=== PATIENT | female | born 1940 | race Caucasian/White ===

== ENCOUNTER → 2023-02-07 07:58 | Outpatient (BNVA) | payer MEDICARE, SELFPAY | PROVIDERS: PCP Internal Medicine; Visit Provider Nurse Practitioner Family | DX: M35.3 Polymyalgia rheumatica (principal) | CPT/HCPCS: 36415; 85652; 86140; 99202 ==

== ENCOUNTER 2023-02-07 09:47 | Outpatient (REF) | payer MEDICARE, SELFPAY ==
[2023-02-07 10:55] LABS: C Reactive Protein 0.77 mg/dL (< or = 0.50)
[2023-02-07 11:09] LABS: Erythrocyte Sedimentation Rate 20 MM/HR (0-20)
== END 2023-02-07 09:48 | disposition home or self-care (01) ==
LOC: HO.10HDL 09:47
PROVIDERS: Visit Provider Nurse Practitioner Family
DX: Z13.89 Encounter for screening for other disorder (principal)
CPT/HCPCS: 36415; 85652; 86140

== ENCOUNTER 2023-02-17 12:36 | Outpatient (REF) | payer MEDICARE, SELFPAY ==
--- NOTE | ~2023-02-17 | MM_ITS ---
EXAMINATION: BONE DENSITOMETRY CLINICAL INDICATION: Long-term, current, use of systemic steroids. COMPARISON: None (current study represents initial baseline exam). TECHNIQUE: Using a [employer] DXA System (software version: 13.1) manufactured by [employer], dual-energy x-ray absorptiometry was performed of the lumbar spine and left hip. The images are of good technical quality. Summary results are attached. FINDINGS: AP SPINE L1-L4: BMD 1.120 g/cm2, Z-score 0.8, T-score -0.5, normal. LEFT FEMUR, NECK: BMD 0.769 g/cm2, Z-score -0.1, T-score -1.9, osteopenia. LEFT FEMUR, TOTAL: BMD 0.909 g/cm2, Z-score 0.9, T-score -0.8, normal. IDENTIFIED RISK FACTORS: Height loss, menopause, hysterectomy, osteoporosis, glucocorticoids (chronic). HISTORY OF FRACTURE: None listed. MEDICATIONS: Vitamin D. MM/XR DEXA axial skeleton IMPRESSION: 1. DIAGNOSIS: Osteopenia based on the lowest T-score value of -1.9 in the femoral neck applying World Health Organization criteria. 2. 10-YEAR FRACTURE RISK PREDICTION, FRAX: Major osteoporotic fracture (clinical spine, forearm, hip or shoulder) 22.7%. Hip fracture 7.4%. 3. Treatment Recommendations: NOF guidelines recommend consideration for treatment in postmenopausal women and men age 50 and older presenting with the following: -A hip or vertebral (clinical or morphometric) fracture. -T-score less than or equal to -2.5 at the femoral neck or spine after appropriate evaluation to exclude secondary causes. -Low bone mass at the hip or spine and a 10-year fracture probability by FRAX of greater than or equal to 3% for hip fracture or greater than or equal to 20% for major osteoporotic fracture based on the [place] adapted WHO algorithm. 4. Other Recommendations: All treatment decisions require clinical judgment and consideration of individual patient factors, including patient preferences, comorbidities, previous drug use, risk factors not captured in the FRAX model (e.g. frailty, falls, vitamin D deficiency, increased bone turnover, interval significant decline in bone density) and possible under or overestimation of fracture risk by FRAX. Additional medical evaluation for secondary cause of low bone mineral density may be appropriate. FUTURE SCAN RECOMMENDATION: People with diagnosed cases of osteoporosis or at high risk for fracture should have regular bone mineral density tests. For patients eligible for Medicare, routine testing is allowed once every 2 years. The testing frequency can be increased to one year for patients who have rapidly progressing disease, those who are receiving or discontinuing medical therapy to restore bone mass, or have additional risk factors.
== END 2023-02-17 12:37 | disposition home or self-care (01) ==
LOC: HO.MAMMO 12:36
PROVIDERS: PCP Internal Medicine; Visit Provider Nurse Practitioner Family
DX: Z13.820 Encounter for screening for osteoporosis (principal); Z79.52 Long term (current) use of systemic steroids; Z78.0 Asymptomatic menopausal state
CPT/HCPCS: 77080

== ENCOUNTER 2023-02-28 10:11 | Outpatient (REF) | payer MEDICARE, SELFPAY ==
[2023-02-28 11:25] LABS: Erythrocyte Sedimentation Rate 27 MM/HR (0-20)
[2023-02-28 12:35] LABS: Alanine Aminotransferase 16 U/L (0-31); Albumin Level 3.9 g/dL (3.5-5.0); Alkaline Phosphatase 80 U/L (39-117); Anion Gap 11 (12-20); Aspartate Amino Transferase 19 U/L (5-31); Bilirubin Total 0.9 mg/dL (0.0-1.0); Blood Urea Nitrogen 20 mg/dL (9-16); C Reactive Protein 1.15 mg/dL (< or = 0.50); Calcium 9.6 mg/dL (8.4-10.2); Carbon Dioxide 29 mmol/L (22-29); Chloride 107 mmol/L (96-108); Estimated Glomerular Filt Rate > 60; Glucose Random 105 mg/dL (60-115); Potassium 4.6 mmol/L (3.3-5.1); Sodium 142 mmol/L (135-145); Total Protein 6.6 g/dL (6.5-8.0)
[2023-02-28 12:54] LABS: Vitamin D 25-OH Total 44.5 ng/mL (>30)
== END 2023-02-28 10:12 | disposition home or self-care (01) ==
LOC: HO.10HDL 10:11
PROVIDERS: Visit Provider Nurse Practitioner Family
DX: M85.80 Other specified disorders of bone density and structure, unspecified site (principal); M35.3 Polymyalgia rheumatica
CPT/HCPCS: 36415; 80053; 82306; 85652; 86140

== ENCOUNTER → 2023-03-02 15:14 | Outpatient (BNVA) | payer MEDICARE, SELFPAY | PROVIDERS: PCP Internal Medicine; Visit Provider Nurse Practitioner Family | DX: M35.3 Polymyalgia rheumatica (principal); M85.80 Other specified disorders of bone density and structure, unspecified site | CPT/HCPCS: 99212 ==

== ENCOUNTER 2023-03-21 10:42 | Outpatient (REF) | payer MEDICARE, SELFPAY ==
[2023-03-21 13:41] LABS: C Reactive Protein 0.38 mg/dL (< or = 0.50)
[2023-03-21 14:09] LABS: Erythrocyte Sedimentation Rate 23 MM/HR (0-20)
== END 2023-03-21 10:43 | disposition home or self-care (01) ==
LOC: HO.10HDL 10:42
PROVIDERS: Visit Provider Nurse Practitioner Family
DX: M35.3 Polymyalgia rheumatica (principal)
CPT/HCPCS: 36415; 85652; 86140

== ENCOUNTER → 2023-03-22 15:44 | Outpatient (BNVA) | payer MEDICARE, SELFPAY | PROVIDERS: PCP Internal Medicine; Visit Provider Nurse Practitioner Family | DX: M35.3 Polymyalgia rheumatica (principal); M85.80 Other specified disorders of bone density and structure, unspecified site; Z79.52 Long term (current) use of systemic steroids | CPT/HCPCS: 99212 ==

== ENCOUNTER 2023-05-02 08:32 | Outpatient (AMB) | payer MEDICARE, SELFPAY ==
[2023-05-02 08:33] VITALS: BP 146/70; PULSE 76; TEMP 36.2; O2SAT 96; BMI 29.3
--- NOTE | 2023-05-02 08:33 | A.OFFVIS_ITS ---
Intake Vital Signs 05/02/23 08:33 Height 5 ft 5 in Weight 176 lb 2.389 oz BMI 29.3 BP 146/70 H Blood Pressure Location Rt brachial Position Sitting Pulse 76 Pulse Source Pulse Oximeter Temp 97.2 F Temp Source Skin Pulse Oximetry (%) 96 Intake Visit Reasons: PMR Intake Note: Pt seen today for PMR follow up. Reports she feels good on prednisone 10mg. Advice Clerk Required: No Accompanied by: Self / Same As Patient Allergies omeprazole Adverse Reaction (Unknown, Verified 05/02/23 08:39) Hives Penicillins Adverse Reaction (Unknown, Verified 05/02/23 08:39) Hives HPI HPI Comments History of Present Illness Details The patient returns for evaluation of her PMR. She had last seen Mickie at the end of February. At that point she was on 5 mg twice a day of the prednisone. We elected to go down to 7.5 mg daily taking 5 mg the morning and 2.5 mg in the afternoon. That worked for a few weeks but then she developed stiffness and pain in the buttocks, thighs, and knees. There was no shoulder pain, headache, jaw claudication or visual disturbance. She called us and we went back to prednisone 5 mg twice a day and she felt much better. She had her lab done when she had the flare-up of symptoms. She remains on alendronate 70 mg once a week for her osteoporosis. That seems to be tolerated. [facility] Medical History (Updated 05/02/23 @ 07:24 by Kody Russell MD) Aortic valve disorder Essential hypertension GERD (gastroesophageal reflux disease) Migraine Mitral valve disorder Sciatica Surgical History (Updated 05/02/23 @ 08:39 by FANNY Roque) History of arthroplasty of knee History of bladder surgery History of heart valve replacement History of right knee joint replacement Hx of colonoscopy Family History Father Myocardial infarction Mother Heart failure Social History (Updated 05/02/23 @ 08:40 by FANNY Roque) Household Members: None Alcohol intake: current Alcohol intake frequency: does not drink Patient Tobacco Use Status: Former Tobacco user Quit Date: 1991 Review of Systems Const Details: Negative for appetite change, weight change, fever, chills, malaise and fatigue Eyes Details: Negative for vision change, dry eyes,headaches and dizziness Card Details: Negative chest pain, edema and syncope Resp Details: Negative for SOB, cough and wheezing GI Details: Negative indigestion/heartburn, nausea, abdominal pain, bowel changes, diarrhea, constipation and bloody stool. Neuro Details: Negative for epilepsy, palsy, stroke, changes in speech, tingling and weakness Physical Exam Vital Signs: Last Vital Signs Temp 97.2 F 05/02/23 08:33 Pulse 76 05/02/23 08:33 BP 146/70 H 05/02/23 08:33 Pulse Ox 96 05/02/23 08:33 BMI result Body Mass Index 29.3 APPEARANCE: Patient in no acute distress EYES no redness, pupils equal and reactive to light, eyelids normal. No temporal artery tenderness, redness or swelling. EXTREMITIES: No edema, no calf tenderness, normal peripheral pulses. JOINT EXAM: Cervical Spine: Full range of motion without pain; no tenderness. Thoracic Spine:? No tenderness on palpation. Lumbar Spine:? Alignment normal.? Full range of motion without pain, no tenderness. Hands: LEFT:? Normal pain-free range of motion without tenderness, swelling, increased warmth or erythema. Able to make a full fist and has a good diesel engine fitter strength. ? RIGHT:? Normal pain-free range of motion. There is some slight bony thickening without tenderness at the thumb IP and 3rd PIP. In other joints there is no swelling, increased warmth or erythema.? Wrists: Normal pain-free range of motion without tenderness, swelling, increased warmth or erythema. Elbows: Normal pain-free range of motion without tenderness, swelling, increased warmth or erythema. Shoulders:?? Full range of motion without pain. No tenderness, weakness, swelling, increased warmth or erythema. Hips:? Full range of motion without pain. Hip bursa: No tenderness. Knees: LEFT:? Normal pain-free range of motion without tenderness, swelling, increased warmth or erythema.? There is no effusion or crepitation ? RIGHT:? Normal pain-free range of motion without tenderness, swelling, increased warmth or erythema.? There is no effusion or crepitation.? Healed arthroplasty scar noted. Ankles: Normal pain-free range of motion without tenderness, swelling, increased warmth or erythema. Results Reviewed Results Reviewed: April 21, 2023: Lab work from [facility] showed ESR 37, CRP 0.51 mg/dL Assessment & Plan Assessment & Plan (1) Osteopenia with high risk of fracture: Comment: DEXA January 2023: T-score -1.9 in the femoral neck. Major osteoporotic fracture risk 22.7%, hip fracture 7.4% Alendronate February 2023- present Code(s): M85.80 - Other specified disorders of bone density and structure, unspecified site (2) Polymyalgia rheumatica: Comment: onset 08/2022 Code(s): M35.3 - Polymyalgia rheumatica Plan PMR with good control of symptoms at this point. It looks like we can not go any lower with the prednisone than 5 mg b.i.d. at present. We will stay with that for another 2 months and ask her then to go to back to 5 mg in the morning and 2.5 mg in the afternoon with the prednisone. We will see her back in about 3 months. We will check lab work before that visit in 3 months. I gave her a printed lab requisition as she wants to have them done in [place]. She will call us with any interim problems and remain on the alendronate for the osteopenia. Orders: Orders C Reactive Protein Today M35.3 - Polymyalgia rheumatica Erythrocyte Sedimentation Rate Today M35.3 - Polymyalgia rheumatica Medications: New prednisone 5 mg (2 x 2.5 mg) PO BID 360 tabs 1RF M35.3 - Polymyalgia rheumatica Coding Level of Care Code Est Pt Level 3 (44889) Diagnoses Osteopenia with high risk of fracture M85.80 Polymyalgia rheumatica M35.3
== END 2023-05-02 09:06 | disposition home or self-care (01) ==
LOC: HO.RHE 08:32
PROVIDERS: PCP Internal Medicine; Visit Provider Internal Medicine Rheumatology
DX: M85.80 Other specified disorders of bone density and structure, unspecified site (principal); M35.3 Polymyalgia rheumatica
CPT/HCPCS: 99213

== ENCOUNTER → 2023-05-02 08:32 | Outpatient (BNVA) | payer MEDICARE, SELFPAY | PROVIDERS: PCP Internal Medicine; Visit Provider Internal Medicine Rheumatology | DX: M35.3 Polymyalgia rheumatica (principal); M85.80 Other specified disorders of bone density and structure, unspecified site | CPT/HCPCS: 99212 ==

== ENCOUNTER 2023-08-08 10:00 | Outpatient (AMB) | payer MEDICARE, SELFPAY ==
--- NOTE | 2023-08-08 10:35 | A.OFFVIS_ITS ---
Intake Vital Signs 08/08/23 10:36 Height 5 ft 5 in Weight 182 lb 8.684 oz BMI 30.4 BP 150/64 H Blood Pressure Location Lt brachial Pulse 58 Pulse Source Pulse Oximeter Temp 97.6 F Temp Source Skin Pulse Oximetry (%) 93 Oxygen Delivery Method Room Air Intake Visit Reasons: pmr Intake Note: Patient presents today to follow up on PMR. c/o facial flush lasting about an hour x few weeks Licensed Optician Required: No Accompanied by: Self / Same As Patient Allergies omeprazole Adverse Reaction (Unknown, Verified 08/08/23 10:35) Hives Penicillins Adverse Reaction (Unknown, Verified 08/08/23 10:35) Hives Medication List - Last Reconciled 08/08/23 by Kody Russell MD alendronate 70 mg PO QWEEK cetirizine (Zyrtec) 10 mg PO DAILY PRN methenamine hippurate 1 g PO BID omeprazole 20 mg PO DAILY prednisone 5 mg QAM and 2.5 mg QHS orally; HPI HPI Comments History of Present Illness Details The patient returns today for evaluation of her polymyalgia rheumatica. She says she is doing well with current treatment. She was able to cut the prednisone to 5 mg in the morning and 2.5 mg in the evening about 3 weeks ago. So far there has been no return of symptoms. She has noticed a little bit of flushing on her face for the past week or so. She did have blood work done. There has been no headache, jaw claudication, or visual disturbance. She remains on alendronate 70 mg once a week for osteopenia. [facility] Medical History (Updated 05/02/23 @ 07:24 by Kody Russell MD) Aortic valve disorder Essential hypertension Mitral valve disorder Sciatica GERD (gastroesophageal reflux disease) Migraine Surgical History History of bladder surgery History of right knee joint replacement Hx of colonoscopy History of arthroplasty of knee History of heart valve replacement Family History Father Myocardial infarction Mother Heart failure Social History Household Members: None Alcohol intake: current Alcohol intake frequency: does not drink Patient Tobacco Use Status: Former Tobacco user Quit Date: 1991 Review of Systems Const Details: Negative for appetite change, weight change, fever, chills, malaise and fatigue Eyes Details: Negative for vision change, dry eyes,headaches and dizziness Card Details: Negative chest pain, edema and syncope Resp Details: Negative for SOB, cough and wheezing GI Details: Negative indigestion/heartburn, nausea, abdominal pain, bowel changes, diarrhea, constipation and bloody stool. Skin/Breast Details: Some intermittent facial redness. Negative for itching, hives, Raynaud's symptoms, sun sensitivity, and skin cancer Endo Details: Negative for polyuria and polydypsia Sukumar/Lymph Details: Negative for excessive bruising or bleeding. Physical Exam Vital Signs: Last Vital Signs Temp 97.6 F 08/08/23 10:36 Pulse 58 08/08/23 10:36 BP 150/64 H 08/08/23 10:36 Pulse Ox 93 08/08/23 10:36 Oxygen Delivery Method Room Air 08/08/23 10:36 BMI result Body Mass Index 30.4 APPEARANCE: Patient in no acute distress EYES no redness, pupils equal and reactive to light, eyelids normal. No temporal artery tenderness, redness or swelling. EXTREMITIES: No edema, no calf tenderness, normal peripheral pulses. Skin: There is some slight redness over the left cheek. I do not palpate any skin lesions. The right cheek looks normal. No other skin Rash. JOINT EXAM: Cervical Spine: Full range of motion without pain; no tenderness. Thoracic Spine:? No tenderness on palpation. Lumbar Spine:? Alignment normal.? Full range of motion without pain, no tenderness. Hands: LEFT:? Normal pain-free range of motion without tenderness, swelling, increased warmth or erythema. Able to make a full fist and has a good financial investment manager strength. ? RIGHT:? Normal pain-free range of motion. There is some slight bony thickening without tenderness at the thumb IP and 3rd PIP. In other joints there is no swelling, increased warmth or erythema.? Wrists: Normal pain-free range of motion without tenderness, swelling, increased warmth or erythema. Elbows: Normal pain-free range of motion without tenderness, swelling, increased warmth or erythema. Shoulders:?? Full range of motion without pain. No tenderness, weakness, swelling, increased warmth or erythema. Hips:? Full range of motion without pain. Hip bursa: No tenderness. Knees: LEFT:? Normal pain-free range of motion without tenderness, swelling, increased warmth or erythema.? There is no effusion or crepitation ? RIGHT:? Normal pain-free range of motion without tenderness, swelling, increased warmth or erythema.? There is no effusion or crepitation.? Healed arthroplasty scar noted. Ankles: Normal pain-free range of motion without tenderness, swelling, increased warmth or erythema. Results Reviewed Results Reviewed: July 28 lab work from [facility]: ESR 27, CRP 0.41 Assessment & Plan Assessment & Plan (1) Polymyalgia rheumatica: Comment: onset 08/2022 Code(s): M35.3 - Polymyalgia rheumatica Plan PMR with no active symptoms presently on the lower dose of prednisone. The acute phase reactants remain normal or close to normal. We will continue with this current dose of prednisone at 5 mg the morning and 2.5 mg in the afternoon. On she will cut down to 2.5 mg twice a day. We will check lab work before for return visit in about 2 months. Medications: Changed From prednisone 5 mg (2 x 2.5 mg) PO BID 360 tabs 1RF M35.3 - Polymyalgia rheumatica To prednisone 5 mg QAM and 2.5 mg QHS orally; M35.3 - Polymyalgia rheumatica Refilled alendronate 70 mg PO QWEEK 12 tabs 3RF M85.80 - Other specified disorders of bone density and structure, unspecified site Coding Level of Care Code Est Pt Level 3 (93286) Diagnoses Polymyalgia rheumatica M35.3
[2023-08-08 10:36] VITALS: BP 150/64; PULSE 58; TEMP 36.4; O2SAT 93; BMI 30.4
== END 2023-08-08 11:24 | disposition home or self-care (01) ==
PROVIDERS: PCP Internal Medicine; Visit Provider Internal Medicine Rheumatology
DX: M35.3 Polymyalgia rheumatica (principal)
CPT/HCPCS: 99213

== ENCOUNTER → 2023-08-08 10:00 | Outpatient (BNVA) | payer MEDICARE, SELFPAY | PROVIDERS: PCP Internal Medicine; Visit Provider Internal Medicine Rheumatology | DX: M35.3 Polymyalgia rheumatica (principal); Z79.52 Long term (current) use of systemic steroids | CPT/HCPCS: 99212 ==

== ENCOUNTER 2023-10-10 11:12 | Outpatient (AMB) | payer MEDICARE, SELFPAY ==
[2023-10-10 11:14] VITALS: BP 150/60; PULSE 82; O2SAT 98; BMI 31.1
--- NOTE | 2023-10-10 11:14 | A.OFFVIS_ITS ---
Intake Vital Signs 10/10/23 11:14 Height 5 ft 5 in Weight 186 lb 15.232 oz BMI 31.1 BP 150/60 H Blood Pressure Location Lt brachial Position Sitting Pulse 82 Pulse Source Pulse Oximeter Pulse Oximetry (%) 98 Oxygen Delivery Method Room Air Intake Visit Reasons: pmr Intake Note: Patient last seen 08/08/23, presents today for follow up and test results. Roller Checker Required: No Accompanied by: Self / Same As Patient Allergies omeprazole Adverse Reaction (Unknown, Verified 10/10/23 11:19) Hives Penicillins Adverse Reaction (Unknown, Verified 10/10/23 11:19) Hives Medication List - Last Reconciled 10/10/23 by Kody Russell MD alendronate 70 mg PO QWEEK cetirizine (Zyrtec) 10 mg PO DAILY PRN methenamine hippurate 1 g PO BID omeprazole 20 mg PO DAILY prednisone 5 mg QAM and 2.5 mg QHS orally; HPI HPI Comments History of Present Illness Details The patient returns for evaluation of her PMR. She currently says she does not seem to have any joint or muscle pains. We have been reducing her prednisone. She had reduced down to 5 mg daily, taking the 2.5 mg tablets, on . She has no headache or jaw claudication. She has noted some d eterioration in her vision over the last year. [facility] Medical History (Updated 05/02/23 @ 07:24 by Kody Russell MD) Aortic valve disorder Essential hypertension Mitral valve disorder Sciatica GERD (gastroesophageal reflux disease) Migraine Surgical History History of bladder surgery History of right knee joint replacement Hx of colonoscopy History of arthroplasty of knee History of heart valve replacement Family History Father Myocardial infarction Mother Heart failure Social History Household Members: None Alcohol intake: current Alcohol intake frequency: does not drink Patient Tobacco Use Status: Former Tobacco user Quit Date: 1991 Review of Systems Const Details: Negative for appetite change, weight change, fever, chills, malaise and fatigue Eyes Details: Negative for vision change, dry eyes,headaches and dizziness Card Details: Negative chest pain, edema and syncope Resp Details: Negative for SOB, cough and wheezing GI Details: Negative indigestion/heartburn, nausea, abdominal pain, bowel changes, diarrhea, constipation and bloody stool. Sukumar/Lymph Details: Negative for excessive bruising or bleeding. Physical Exam Vital Signs: Last Vital Signs Pulse 82 10/10/23 11:14 BP 150/60 H 10/10/23 11:14 Pulse Ox 98 10/10/23 11:14 Oxygen Delivery Method Room Air 10/10/23 11:14 BMI result Body Mass Index 31.1 APPEARANCE: Patient in no acute distress EYES no redness, pupils equal and reactive to light, eyelids normal. No temporal artery tenderness, redness or swelling. EXTREMITIES: No edema, no calf tenderness, normal peripheral pulses. JOINT EXAM: Cervical Spine: Full range of motion without pain; no tenderness. Thoracic Spine:? No tenderness on palpation. Lumbar Spine:? Alignment normal.? Full range of motion without pain, no tenderness. Hands: LEFT:? Normal pain-free range of motion without tenderness, swelling, increased warmth or erythema. Able to make a full fist and has a good wood floor layer strength. ? RIGHT:? Normal pain-free range of motion. There is some slight bony thickening without tenderness at the thumb IP and 3rd PIP. In other joints there is no swelling, increased warmth or erythema.? Wrists: Normal pain-free range of motion without tenderness, swelling, increased warmth or erythema. Elbows: Normal pain-free range of motion without tenderness, swelling, increased warmth or erythema. Shoulders:?? Full range of motion without pain. No tenderness, weakness, swelling, increased warmth or erythema. Hips:? Full range of motion without pain. Hip bursa: No tenderness. Knees: LEFT:? Normal pain-free range of motion without tenderness, swelling, increased warmth or erythema.? There is no effusion or crepitation ? RIGHT:? Normal pain-free range of motion without tenderness, swelling, increased warmth or erythema.? There is no effusion or crepitation.? Healed arthroplasty scar noted. Results Reviewed Results Reviewed: September 29 lab work from [facility]: ESR 16, CRP 5.9 milligram/liter Assessment & Plan Assessment & Plan (1) Polymyalgia rheumatica: Comment: onset 08/2022 Code(s): M35.3 - Polymyalgia rheumatica Plan PMR with good control of symptoms with current dose of prednisone. We will try another cautious reduction in prednisone to 2.5 mg daily on November 06. If she has any flare-up of symptoms she should call us and we would adjust her prednisone dosage. I gave her printed lab slips to have lab work done before the next visit in about 3 months. Orders: Orders Erythrocyte Sedimentation Rate Today M35.3 - Polymyalgia rheumatica C Reactive Protein Today M35.3 - Polymyalgia rheumatica Coding Level of Care Code Est Pt Level 3 (91414) Diagnoses Polymyalgia rheumatica M35.3
== END 2023-10-10 11:46 | disposition home or self-care (01) ==
PROVIDERS: PCP Internal Medicine; Visit Provider Internal Medicine Rheumatology
DX: M35.3 Polymyalgia rheumatica (principal)
CPT/HCPCS: 99213

== ENCOUNTER → 2023-10-10 11:12 | Outpatient (BNVA) | payer MEDICARE, SELFPAY | PROVIDERS: PCP Internal Medicine; Visit Provider Internal Medicine Rheumatology | DX: M35.3 Polymyalgia rheumatica (principal) | CPT/HCPCS: 99212 ==

== ENCOUNTER 2024-01-18 14:19 | Outpatient (AMB) | payer MEDICARE, SELFPAY ==
--- NOTE | 2024-01-18 14:21 | A.OFFVIS_ITS ---
Intake Vital Signs 01/18/24 14:28 Height 5 ft 5 in Weight 187 lb 2.759 oz BMI 31.1 BP 150/70 H Blood Pressure Location Lt brachial Position Sitting Pulse 95 Pulse Source Pulse Oximeter Temp 97 F Temp Source Skin Pulse Oximetry (%) 95 Oxygen Delivery Method Room Air Intake Visit Reasons: PMR/ CONFIRMED Intake Note: Patient last seen 10/10/[address] Russell, presents today for follow up and test results. Licensed Certified Orthotist Required: No Accompanied by: Self / Same As Patient Allergies omeprazole Adverse Reaction (Unknown, Verified 01/18/24 14:21) Hives Penicillins Adverse Reaction (Unknown, Verified 01/18/24 14:21) Hives HPI HPI Comments History of Present Illness Details Ms. Young 83-year-old female returns for follow-up of her PMR. She is currently on prednisone 10 mg q.d.. Her prednisone was increased after she called to report return of symptoms to her upper arms. At that time she was on 5 mg q.d. it is more noticeable when she gets more active with her arms. She denies headache or jaw claudication. She has noted some deterioration in her vision over the last year. [facility] Medical History (Updated 05/02/23 @ 07:24 by Kody Russell MD) Aortic valve disorder Essential hypertension Mitral valve disorder Sciatica GERD (gastroesophageal reflux disease) Migraine Surgical History History of bladder surgery History of right knee joint replacement Hx of colonoscopy History of arthroplasty of knee History of heart valve replacement Family History Father Myocardial infarction Mother Heart failure Social History Household Members: None Alcohol intake: current Alcohol intake frequency: does not drink Patient Tobacco Use Status: Former Tobacco user Quit Date: 1991 Review of Systems Const All systems reviewed & are unremarkable except as noted in HPI and below Physical Exam Vital Signs: Last Vital Signs Temp 97 F 01/18/24 14:28 Pulse 95 01/18/24 14:28 BP 150/70 H 01/18/24 14:28 Pulse Ox 95 01/18/24 14:28 Oxygen Delivery Method Room Air 01/18/24 14:28 BMI result Body Mass Index 31.1 APPEARANCE: Patient in no acute distress EYES no redness, pupils equal and reactive to light, eyelids normal. No temporal artery tenderness, redness or swelling. HEART:? Regular rhythm, S1-S2 heard, no murmurs, rubs or gallops. LUNG:? Clear to percussion and auscultation EXTREMITIES: No edema, no calf tenderness, normal peripheral pulses. JOINT EXAM: Cervical Spine: Full range of motion without pain; no tenderness. Thoracic Spine:? No tenderness on palpation. Lumbar Spine:? Alignment normal.? Full range of motion without pain, no tenderness. Hands: LEFT:? Normal pain-free range of motion without tenderness, swelling, increased warmth or erythema. Able to make a full fist and has a good inside solar sales consultant strength. ? RIGHT:? Normal pain-free range of motion. There is some slight bony thickening without tenderness at the thumb IP and 3rd PIP. In other joints there is no swelling, increased warmth or erythema.? Wrists: Normal pain-free range of motion without tenderness, swelling, increased warmth or erythema. Elbows: Normal pain-free range of motion without tenderness, swelling, increased warmth or erythema. Shoulders:?? Full range of motion without pain. No tenderness, weakness, swelling, increased warmth or erythema. Hips:? Full range of motion without pain. Hip bursa: No tenderness. Knees: LEFT:? Normal pain-free range of motion without tenderness, swelling, increased warmth or erythema.? There is no effusion or crepitation ? RIGHT:? Normal pain-free range of motion without tenderness, swelling, increased warmth or erythema.? There is no effusion or crepitation.? Healed arthroplasty scar noted. Results Reviewed Results Reviewed: September 29 lab work from [facility]: ESR 16, CRP 5.9 milligram/liter January 09 lab work from [facility]: ESR 19, CRP 10 Assessment & Plan Assessment & Plan (1) Polymyalgia rheumatica: Comment: onset 08/2022 Code(s): M35.3 - Polymyalgia rheumatica (2) Osteopenia with high risk of fracture: Comment: DEXA January 2023: T-score -1.9 in the femoral neck. Major osteoporotic fracture risk 22.7%, hip fracture 7.4% Alendronate February 2023- present Code(s): M85.80 - Other specified disorders of bone density and structure, unspecified site Plan #PMR: She is currently doing well on prednisone 10 mg per day. Will proceed with the taper at a rate of 1 mg each month. Therefore patient will start 9 mg per day for 1 month and taper down by 1 mg each month. Patient knows to call the office if she has any flare-up of symptoms with reduced dosing. She will also obtain lab work before next visit. There continues a mild elevation in her CRP. This may be more metabolic than related to the PMR. Therefore if it has not resolve on the higher dose of prednisone we will continue to move forward as long as the patient is asymptomatic. #Osteopenia: Continue alendronate 70 mg q.week I spent 35 minutes reviewing history, evaluating patient and discussing disease process and documenting Follow-up 3 months. Medications: New prednisone Combine with the 5mg Tablets for Taper Take 4 tablets per for 2 weeks Take 3 tablets per for 2 weeks Take 2 tablets per for 2 weeks Take 1 tablets per for 2 weeks 140 tabs 0RF M35.3 - Polymyalgia rheumatica Coding Level of Care Code Est Pt Level 4 (98338) Diagnoses Polymyalgia rheumatica M35.3 Osteopenia with high risk of fracture M85.80
[2024-01-18 14:28] VITALS: BP 150/70; PULSE 95; TEMP 36.1; O2SAT 95; BMI 31.1
== END 2024-01-18 15:19 | disposition home or self-care (01) ==
PROVIDERS: PCP Internal Medicine; Visit Provider Nurse Practitioner Family
DX: M35.3 Polymyalgia rheumatica (principal); M85.80 Other specified disorders of bone density and structure, unspecified site
CPT/HCPCS: 99214

== ENCOUNTER → 2024-01-18 14:19 | Outpatient (BNVA) | payer MEDICARE, SELFPAY | PROVIDERS: PCP Internal Medicine; Visit Provider Nurse Practitioner Family | DX: M35.3 Polymyalgia rheumatica (principal); M85.80 Other specified disorders of bone density and structure, unspecified site | CPT/HCPCS: 99212 ==

== ENCOUNTER 2024-04-23 12:25 | Outpatient (AMB) | payer MEDICARE, SELFPAY ==
--- NOTE | 2024-04-23 12:32 | A.OFFVIS_ITS ---
Vital Signs 04/23/24 12:36 Height 5 ft 5 in Weight 190 lb 11.198 oz BMI 31.7 BP 142/80 H Blood Pressure Location Lt brachial Position Sitting Pulse 78 Pulse Source Pulse Oximeter Pulse Oximetry (%) 90 L Oxygen Delivery Method Room Air Intake Visit Reasons: PMR/CONFIRMED Intake Note: Patient presents for PMR. Allergies omeprazole Adverse Reaction (Unknown, Verified 04/23/24 12:35) Hives Penicillins Adverse Reaction (Unknown, Verified 04/23/24 12:35) Hives Medication List - Last Reconciled 04/23/24 by Joe Rneee MD alendronate 70 mg PO QWEEK cetirizine (Zyrtec) 10 mg PO DAILY PRN methenamine hippurate 1 g PO BID omeprazole 20 mg PO DAILY prednisone Combine with the 5mg Tablets for Taper Take 4 tablets per for 2 weeks Take 3 tablets per for 2 weeks Take 2 tablets per for 2 weeks Take 1 tablets per for 2 weeks prednisone 1 mg PO DAILY HPI Comments Details: This is an 83-year-old female with PMR who presents for follow-up. Has been tapering her prednisone by 1 mg per month. Until she reduced it to 5 mg daily about 10 days ago and she started having some neck stiffness, pain on the outside of her right hip and right buttock, worse in the morning, associated with short-lived stiffness. She is doing well otherwise. She states that her balance is not the greatest, but she has not had any falls. She denies any swollen joints. [facility] Medical History Aortic valve disorder Essential hypertension Mitral valve disorder Sciatica GERD (gastroesophageal reflux disease) Migraine Surgical History History of bladder surgery History of right knee joint replacement Hx of colonoscopy History of arthroplasty of knee History of heart valve replacement Family History Father Myocardial infarction Mother Heart failure Daughter Lupus (systemic lupus erythematosus) Social History Household Members: None Alcohol intake: current Alcohol intake frequency: does not drink Patient Tobacco Use Status: Former Tobacco user Review of Systems ENT Reports neck pain Musc Reports back pain, Reports neck pain and Reports stiffness Physical Exam Vital Signs: Last Vital Signs Pulse 78 04/23/24 12:36 BP 142/80 H 04/23/24 12:36 Pulse Ox 90 L 04/23/24 12:36 Oxygen Delivery Method Room Air 04/23/24 12:36 BMI result Body Mass Index 31.7 Const General: cooperative, healthy appearing and comfortable Nutritional Appearance: obese Orientation/consciousness: patient oriented x3 Limitations: no limitations HEENT Head: Yes normocephalic and Yes atraumatic Mouth: moist mucous membranes Resp Effort & Inspection: normal respiratory effort and able to speak in complete sentences Auscultation: clear to auscultation bilaterally Cardio Rate: regular rate Rhythm: regular rhythm GI Inspection: No distended Palpation (GI): Soft to palpation and nontender Skin General skin exam: no rashes or lesions noted Neuro General: patient oriented x3 Extrem Other: No active synovitis Positive Speed's test on the left , negative on the right Negative rotator cuff provocative maneuvers otherwise bilaterally Negative straight leg raise test bilaterally Bilateral knee crepitus Right trochanteric bursa area tenderness with negative Reyna's test Negative MTP squeeze test Normal nailfold capillaroscopy Proximal muscle strength 5/5 all 4 extremities Results Reviewed Results Reviewed: Labs 03/2024 RF/CCP negative ESR 25 CRP 6.8 (<4.0) Hepatitis panel negative Assessment & Plan Assessment & Plan (1) Polymyalgia rheumatica: Comment: onset 08/2022 Code(s): M35.3 - Polymyalgia rheumatica Category: Medical Plan: This is an 83 year female with PMR presents for follow-up. This is her 1st visit with me. Patient started having some aching and stiffness since prednisone was lowered from 6 mg daily to 5 mg daily. Mild PMR flare versus mechanical degenerative symptoms. Advised patient to increase prednisone to 6 mg daily for 2 weeks then alternate 5 and 6 mg daily for 2 weeks then remain on 5 mg daily for 2 weeks, then alternate 5 and 4 mg daily for 2 weeks then remain on 4 mg daily, followed the taper as such Labs before next visit in 3 months (2) Osteopenia with high risk of fracture: Comment: DEXA January 2023: T-score -1.9 in the femoral neck. Major osteoporotic fracture risk 22.7%, hip fracture 7.4% Alendronate February 2023- present Code(s): M85.80 - Other specified disorders of bone density and structure, unspecified site Category: Medical Plan: Continue alendronate 70 mg weekly (3) Poor balance: Code(s): R26.89 - Other abnormalities of gait and mobility Category: Medical Plan: Patient declined PT/OT referral today. Patient's granddaughter is an occupational therapist. She will speak with her (4) Trochanteric bursitis, right hip: Code(s): M70.61 - Trochanteric bursitis, right hip Category: Medical Plan: I provided patient with a printout of home exercise Plan I spent 46 minutes reviewing patient's chart, evaluating patient, ordering diagnostic workup, counseling patient and documenting in the chart Orders: Orders Complete Blood Count Auto Diff 3 Months M35.3 - Polymyalgia rheumatica C Reactive Protein 3 Months M35.3 - Polymyalgia rheumatica Comprehensive Met. Panel 3 Months M35.3 - Polymyalgia rheumatica Erythrocyte Sedimentation Rate 3 Months M35.3 - Polymyalgia rheumatica Medications: New prednisone Taper as directed 5 mg (2 x 2.5 mg) PO DAILY 180 tabs 0RF Refilled prednisone 1 mg PO DAILY 90 tabs 1RF M35.3 - Polymyalgia rheumatica Coding Level of Care Code Est Pt Level 5 (98863) Complex EM visit Add On G2211 Diagnoses Polymyalgia rheumatica M35.3 Osteopenia with high risk of fracture M85.80 Poor balance R26.89 Trochanteric bursitis, right hip M70.61
[2024-04-23 12:36] VITALS: BP 142/80; PULSE 78; O2SAT 90; BMI 31.7
== END 2024-04-23 13:10 | disposition home or self-care (01) ==
PROVIDERS: PCP Internal Medicine; Visit Provider Student in an Organized Health Care Education/Training Program
DX: M35.3 Polymyalgia rheumatica (principal); M85.80 Other specified disorders of bone density and structure, unspecified site; R26.89 Other abnormalities of gait and mobility; M70.61 Trochanteric bursitis, right hip
CPT/HCPCS: 99215; G2211

== ENCOUNTER → 2024-04-23 12:25 | Outpatient (BNVA) | payer MEDICARE, SELFPAY | PROVIDERS: PCP Internal Medicine; Visit Provider Student in an Organized Health Care Education/Training Program | DX: M35.3 Polymyalgia rheumatica (principal); M70.61 Trochanteric bursitis, right hip; M85.80 Other specified disorders of bone density and structure, unspecified site; R26.89 Other abnormalities of gait and mobility; Z79.52 Long term (current) use of systemic steroids | CPT/HCPCS: 99212 ==

== ENCOUNTER 2024-07-30 13:48 | Outpatient (AMB) | payer MEDICARE, SELFPAY ==
--- NOTE | 2024-07-30 13:52 | A.OFFVIS_ITS ---
Vital Signs 07/30/24 13:55 Height 5 ft 5 in Weight 187 lb 6.287 oz BMI 31.2 BP 140/64 H Blood Pressure Location Lt brachial Position Sitting Pulse 79 Pulse Source Pulse Oximeter Pulse Oximetry (%) 97 Oxygen Delivery Method Room Air Intake Visit Reasons: PMR Intake Note: Patient presents for PMR. Allergies omeprazole Adverse Reaction (Unknown, Verified 07/30/24 13:54) Hives Penicillins Adverse Reaction (Unknown, Verified 07/30/24 13:54) Hives Medication List - Last Reconciled 07/30/24 by Joe Renee MD alendronate 70 mg PO QWEEK cetirizine (Zyrtec) 10 mg PO DAILY PRN hydroxychloroquine 200 mg PO BID methenamine hippurate 1 g PO BID omeprazole 20 mg PO DAILY prednisone Combine with the 5mg Tablets for Taper Take 4 tablets per for 2 weeks Take 3 tablets per for 2 weeks Take 2 tablets per for 2 weeks Take 1 tablets per for 2 weeks prednisone 1 mg PO DAILY prednisone 5 mg (2 x 2.5 mg) PO DAILY HPI Comments Details: This is an 84-year-old female with PMR who presents for follow-up. After last visit she has a flare-up when she was urinating 4 mg daily with 5 mg daily of prednisone, she was advised to stay on prednisone 5 mg daily. She states that she was having a flare-up affecting different joints including her wrists and elbows. She had left wrist swelling. Today she is feeling well with no significant joint pain or stiffness. [facility] Medical History Aortic valve disorder Essential hypertension Mitral valve disorder Sciatica GERD (gastroesophageal reflux disease) Migraine Surgical History H/O cataract extraction History of bladder surgery History of right knee joint replacement Hx of colonoscopy History of arthroplasty of knee History of heart valve replacement Family History Father Myocardial infarction Mother Heart failure Daughter Lupus (systemic lupus erythematosus) Social History Household Members: None Alcohol intake: current Alcohol intake frequency: does not drink Patient Tobacco Use Status: Former Tobacco user Review of Systems [facility] Denies joint swelling and Denies stiffness Physical Exam Vital Signs: Last Vital Signs Pulse 79 07/30/24 13:55 BP 140/64 H 07/30/24 13:55 Pulse Ox 97 07/30/24 13:55 Oxygen Delivery Method Room Air 07/30/24 13:55 BMI result Body Mass Index 31.2 Const General: cooperative, healthy appearing and comfortable Nutritional Appearance: obese Orientation/consciousness: patient oriented x3 Limitations: no limitations HEENT Head: Yes normocephalic and Yes atraumatic Mouth: moist mucous membranes Resp Effort & Inspection: normal respiratory effort and able to speak in complete sentences Auscultation: clear to auscultation bilaterally Cardio Rate: regular rate Rhythm: regular rhythm GI Inspection: No distended Palpation (GI): Soft to palpation and nontender Skin General skin exam: no rashes or lesions noted Neuro General: patient oriented x3 Extrem Other: Bilateral wrist pain with full flexion No wrist swelling or tenderness bilaterally No elbow pain with flexion-extension bilaterally Negative straight leg raise test bilaterally Negative MTP squeeze test Normal nailfold capillaroscopy Proximal muscle strength 5/5 all 4 extremities Results Reviewed Results Reviewed: Labs 03/2024 RF/CCP negative Hepatitis panel negative Assessment & Plan Assessment & Plan (1) Polymyalgia rheumatica: Comment: onset 08/2022 Code(s): M35.3 - Polymyalgia rheumatica Category: Medical Plan: This is an 84 year female with PMR presents for follow-up. Patient had a flare- up of symptoms when she tried tapering prednisone 5 mg daily to 4 mg daily. She had a flare-up affecting her wrists and elbows, she also had left wrist swelling, on exam today she has bilateral wrist pain with full flexion, she is starting to have some symptoms suggestive of seronegative RA. Inflammatory markers remain elevated Discussed with patient that her PMR is not well controlled and likely needs higher doses of prednisone however those are associated with multiple risks including fragile bone, fragile skin, weight gain, possible glaucoma. Discussed risks and benefits of Kevzara. Patient was hesitant about it. I think we should attempt treatment for seronegative RA. Discussed risks and benefits of hydroxychloroquine. Patient agreed to proceed. Start hydroxychloroquine 20 mg Twice daily Continue prednisone 2.5 mg Twice daily Labs before next visit in 3 months (2) Osteopenia with high risk of fracture: Comment: DEXA January 2023: T-score -1.9 in the femoral neck. Major osteoporotic fracture risk 22.7%, hip fracture 7.4% Alendronate February 2023- present Code(s): M85.80 - Other specified disorders of bone density and structure, unspecified site Category: Medical Plan: Continue alendronate 70 mg weekly (3) Long-term use of hydroxychloroquine: Code(s): Z79.899 - Other skilled nursing (current) drug therapy Category: Medical Plan: Discussed risk of retinopathy associated hydroxychloroquine. Patient states he has an appointment with her director of agriculture in one-month Plan I spent 46 minutes reviewing patient's chart, evaluating patient, ordering diagnostic workup, counseling patient and documenting in the chart Orders: Orders Complete Blood Count Auto Diff 3 Months M35.3 - Polymyalgia rheumatica Comprehensive Met. Panel 3 Months M35.3 - Polymyalgia rheumatica T Spot TB 3 Months Z11.7 - Encounter for testing for latent tuberculosis infection C Reactive Protein 3 Months M35.3 - Polymyalgia rheumatica Erythrocyte Sedimentation Rate 3 Months M35.3 - Polymyalgia rheumatica Medications: New hydroxychloroquine 200 mg PO BID 60 tabs 2RF Changed From prednisone Taper as directed 5 mg (2 x 2.5 mg) PO DAILY 180 tabs 0RF To prednisone 5 mg (2 x 2.5 mg) PO DAILY 180 tabs 1RF Coding Level of Care Code Est Pt Level 4 (39833) Complex EM visit Add On G2211 Diagnoses Polymyalgia rheumatica M35.3 Osteopenia with high risk of fracture M85.80 Long-term use of hydroxychloroquine Z79.899
[2024-07-30 13:55] VITALS: BP 140/64; PULSE 79; O2SAT 97; BMI 31.2
== END 2024-07-30 14:29 | disposition home or self-care (01) ==
PROVIDERS: PCP Internal Medicine; Visit Provider Student in an Organized Health Care Education/Training Program
DX: M35.3 Polymyalgia rheumatica (principal); M85.80 Other specified disorders of bone density and structure, unspecified site; Z79.899 Other long term (current) drug therapy
CPT/HCPCS: 99214; G2211

== ENCOUNTER → 2024-07-30 13:48 | Outpatient (BNVA) | payer MEDICARE, SELFPAY | PROVIDERS: PCP Internal Medicine; Visit Provider Student in an Organized Health Care Education/Training Program | DX: M35.3 Polymyalgia rheumatica (principal); M85.80 Other specified disorders of bone density and structure, unspecified site; Z79.899 Other long term (current) drug therapy | CPT/HCPCS: 99212 ==

== ENCOUNTER 2024-10-30 11:26 | Outpatient (AMB) | payer MEDICARE, SELFPAY ==
--- NOTE | 2024-10-30 11:42 | MHC.OFFVIS ---
Vital Signs 10/30/24 11:47 Height 5 ft 5 in Weight 185 lb 3.013 oz BMI 30.8 BP 172/80 H Blood Pressure Location Rt brachial Position Sitting Pulse 80 Pulse Source Pulse Oximeter Pulse Oximetry (%) 92 Oxygen Delivery Method Room Air Intake Visit Reasons: PMR/RA Intake Note: Patient presents for PMR/RA. Allergies omeprazole Adverse Reaction (Unknown, Verified 10/30/24 11:46) Hives Penicillins Adverse Reaction (Unknown, Verified 10/30/24 11:46) Hives Medication List - Last Reconciled 10/30/24 by Joe Renee MD alendronate 70 mg PO QWEEK amlodipine 2.5 mg PO DAILY cetirizine (Zyrtec) 10 mg PO DAILY PRN hydroxychloroquine 200 mg PO BID methenamine hippurate 1 g PO BID omeprazole 20 mg PO DAILY prednisone 5 mg (2 x 2.5 mg) PO DAILY HPI Comments Details: This is an 84-year-old female with PMR/seronegative RA who presents for follow-up. She started hydroxychloroquine 200 mg Twice daily last visit, she continues on prednisone 2.5 mg Twice daily. She states that her joints feel much better overall since she started hydroxychloroquine. She denies any joint pain, swelling or stiffness. [facility] Medical History Aortic valve disorder Essential hypertension Mitral valve disorder Sciatica GERD (gastroesophageal reflux disease) Migraine Surgical History H/O cataract extraction History of bladder surgery History of right knee joint replacement Hx of colonoscopy History of arthroplasty of knee History of heart valve replacement Family History Father Myocardial infarction Mother Heart failure Daughter Lupus (systemic lupus erythematosus) Social History Household Members: None Alcohol intake: current Alcohol intake frequency: does not drink Patient Tobacco Use Status: Former Tobacco user Review of Systems Musc Denies arthralgias, Denies joint swelling and Denies stiffness Physical Exam Vital Signs: Last Vital Signs Pulse 80 10/30/24 11:47 BP 172/80 H 10/30/24 11:47 Pulse Ox 92 10/30/24 11:47 Oxygen Delivery Method Room Air 10/30/24 11:47 BMI result Body Mass Index 30.8 Const General: cooperative, healthy appearing and comfortable Nutritional Appearance: obese Orientation/consciousness: patient oriented x3 Limitations: no limitations HEENT Head: Yes normocephalic and Yes atraumatic Mouth: moist mucous membranes Resp Effort & Inspection: normal respiratory effort and able to speak in complete sentences Auscultation: clear to auscultation bilaterally Cardio Rate: regular rate Rhythm: regular rhythm Heart sounds: Murmur heart sound present systolic GI Inspection: No distended Palpation (GI): Soft to palpation and nontender Skin General skin exam: no rashes or lesions noted Neuro General: patient oriented x3 Extrem Other: No wrist swelling or tenderness bilaterally or pain with full flexion-extension No active synovitis both hands Normal pain-free range of motion of elbows and shoulders No knee pain swelling or warmth bilaterally or pain with full flexion-extension No elbow pain with flexion-extension bilaterally Negative straight leg raise test bilaterally Negative MTP squeeze test Normal nailfold capillaroscopy Proximal muscle strength 5/5 all 4 extremities Assessment & Plan Assessment & Plan (1) Polymyalgia rheumatica: Comment: onset 08/2022. Prednisone started More small joint symptoms 07/2024 HCQ started 07/2024 effective Code(s): M35.3 - Polymyalgia rheumatica Category: Medical Plan: This is an 84 year female with PMR/seronegative RA presents for follow-up. On hydroxychloroquine 20 mg Twice daily and prednisone 2.5 mg Twice daily. Doing much better overall since hydroxychloroquine was started. There is no active synovitis on exam today. CRP normalized Continue hydroxychloroquine 200 mg Twice daily Reduce prednisone to 2.5 mg daily for 1 month then discontinue prednisone Labs before next visit in 4 months (2) Osteopenia with high risk of fracture: Comment: DEXA January 2023: T-score -1.9 in the femoral neck. Major osteoporotic fracture risk 22.7%, hip fracture 7.4% Alendronate February 2023- present Code(s): M85.80 - Other specified disorders of bone density and structure, unspecified site Category: Medical Plan: Continue alendronate 70 mg weekly. (3) Long-term use of hydroxychloroquine: Code(s): Z79.899 - Other skilled nursing (current) drug therapy Category: Medical Plan: Discussed risk of retinopathy associated hydroxychloroquine. Per patient she was evaluated by Ophthalmology recently. We will attempt to retrieve records Plan I spent 26 minutes reviewing patient's chart, evaluating patient, ordering diagnostic workup, counseling patient and documenting in the chart Orders: Orders Complete Blood Count Auto Diff 4 Months M35.3 - Polymyalgia rheumatica, Z79.899 - Other skilled nursing (current) drug therapy Comprehensive Met. Panel 4 Months M35.3 - Polymyalgia rheumatica, Z79.899 - Other skilled nursing (current) drug therapy Erythrocyte Sedimentation Rate 4 Months M35.3 - Polymyalgia rheumatica, Z79.899 - Other technician terminal and repeater (current) drug therapy C Reactive Protein 4 Months M35.3 - Polymyalgia rheumatica, Z79.899 - Other skilled nursing (current) drug therapy XR DEXA axial skeleton 01/21/25 M81.0 - Age-related osteoporosis without current pathological fracture Medications: Refilled hydroxychloroquine 200 mg PO BID 180 tabs 1RF Discontinued prednisone Discontinued Reason: Doctor's Order Combine with the 5mg Tablets for Taper Take 4 tablets per for 2 weeks Take 3 tablets per for 2 weeks Take 2 tablets per for 2 weeks Take 1 tablets per for 2 weeks 140 tabs 0RF M35.3 - Polymyalgia rheumatica prednisone Discontinued Reason: Patient Completed Course 1 mg PO DAILY 90 tabs 1RF M35.3 - Polymyalgia rheumatica Coding Level of Care Code Est Pt Level 4 (89040) Complex EM visit Add On G2211 Diagnoses Polymyalgia rheumatica M35.3 Osteopenia with high risk of fracture M85.80 Long-term use of hydroxychloroquine Z79.899
[2024-10-30 11:47] VITALS: BP 172/80; PULSE 80; O2SAT 92; BMI 30.8
== END 2024-10-30 12:12 | disposition home or self-care (01) ==
PROVIDERS: PCP Internal Medicine; Visit Provider Student in an Organized Health Care Education/Training Program
DX: M35.3 Polymyalgia rheumatica (principal); M85.80 Other specified disorders of bone density and structure, unspecified site; Z79.899 Other long term (current) drug therapy
CPT/HCPCS: 99214; G2211

== ENCOUNTER → 2024-10-30 11:26 | Outpatient (BNVA) | payer MEDICARE, SELFPAY | PROVIDERS: PCP Internal Medicine; Visit Provider Student in an Organized Health Care Education/Training Program | DX: M35.3 Polymyalgia rheumatica (principal); M85.80 Other specified disorders of bone density and structure, unspecified site; Z79.899 Other long term (current) drug therapy | CPT/HCPCS: 99212 ==

== ENCOUNTER 2025-01-08 14:43 | Outpatient (AMB) | payer MEDICARE, SELFPAY ==
[2025-01-08 15:08] VITALS: BP 150/68; PULSE 77; O2SAT 98; BMI 30.8
--- NOTE | 2025-01-08 15:08 | A.OFFVIS_ITS ---
Vital Signs 01/08/25 15:08 Height 5 ft 5 in Weight 185 lb BMI 30.8 BP 150/68 H Blood Pressure Location Rt brachial Position Sitting Pulse 77 Pulse Source Pulse Oximeter Pulse Oximetry (%) 98 Oxygen Delivery Method Room Air Intake Visit Reasons: RA/PMR Intake Note: Patient presents for discomfort at base of her spine, may be related to RA. She states the pain has been 3-4 weeks. She states she feels it's between her cheeks, getting up makes it worse. Patient would like refill of Alendronate. Allergies omeprazole Adverse Reaction (Unknown, Verified 01/08/25 15:11) Hives Penicillins Adverse Reaction (Unknown, Verified 01/08/25 15:11) Hives Medication List - Last Reconciled 01/08/25 by Negin El MD alendronate 70 mg PO QWEEK amlodipine 2.5 mg PO DAILY cetirizine (Zyrtec) 10 mg PO DAILY PRN hydroxychloroquine 200 mg PO BID methenamine hippurate 1 g PO BID omeprazole 20 mg PO DAILY prednisone 5 mg (2 x 2.5 mg) PO DAILY HPI Comments Details: Patient is an 84-year-old female with hypertension, osteopenia with high fracture risk and polymyalgia rheumatica/seronegative rheumatoid arthritis here today for follow up Interval History: Patient last seen 10/30/[address] Renee. At that time she had started hydrox ychloroquine 200 mg twice a day and prednisone 2.5 mg twice a day. She reported feeling much better overall since starting her hydroxychloroquine and denied any joint pain or stiffness at that visit. Since the patient was doing so well the plan was for her to reduce the prednisone to 2.5 mg once a day for 1 month and then discontinued the prednisone. About 2 weeks after trying to decrease the prednisone she noted return of her symptoms and so she reached out to Dr. Renee and was told to increase the prednisone back to 2.5mg bid Since going back up to the 2.5 mg twice a day she has not had any further wrist or elbow pain. Today she is complaining of tailbone pain especially when she gets up from a seated position. This pain does not wake her up in the middle of the night. Not associated with stiffness. Rheumatologic History: PMR/seronegative rheumatoid arthritis onset 08/2022. Prednisone started More small joint symptoms 07/2024 HCQ started 07/2024 effective Osteopenia with high FRAX DEXA January 2023: T-score -1.9 in the femoral neck. Major osteoporotic fracture risk 22.7%, hip fracture 7.4% Alendronate February 2023- present Current Rheumatology Medication(s): Plaquenil 200 mg twice a day Prednisone 2.5mg bid Alendronate 70 mg weekly Vitamin-D supplementation PFSH Medical History Aortic valve disorder Essential hypertension Mitral valve disorder Sciatica GERD (gastroesophageal reflux disease) Migraine Surgical History H/O cataract extraction History of bladder surgery History of right knee joint replacement Hx of colonoscopy History of arthroplasty of knee History of heart valve replacement Family History Father Myocardial infarction Mother Heart failure Daughter Lupus (systemic lupus erythematosus) Social History Household Members: None Alcohol intake: current Alcohol intake frequency: does not drink Patient Tobacco Use Status: Former Tobacco user Review of Systems Const Details: Review of Systems Constitutional: Denies fever, chills, weight loss ENT: Denies vision changes, eye pain or eye redness, dental caries, dry mouth GI: Denies nausea, vomiting, diarrhea, abdominal pain, change in BM Pulm: Denies SOB, ELIZABETH, hemoptysis, wheezing Cards: Denies chest pain, palpitations Skin: Denies Raynaud's, rash, nail changes, photosensitivity, HR INTERN: Denies headaches, weakness, paresthesias, recurrent falls MSK: as per HPI All other systems reviewed and are unremarkable except noted above Physical Exam Vital Signs: Last Vital Signs Pulse 77 01/08/25 15:08 BP 150/68 H 01/08/25 15:08 Pulse Ox 98 01/08/25 15:08 Oxygen Delivery Method Room Air 01/08/25 15:08 BMI result Body Mass Index 30.8 Vital signs reviewed Physical Examination CONSTITUITIONAL Patient alert and cooperative. Well appearing and in no apparent painful distress HEENT Conjunctiva and sclera clear. ?Pupils equal round and reactive to light. ?No lymphadenopathy. ? CHEST/RESPIRATORY SYSTEM Normal respiratory effort and able to speak in complete sentences. ?Clear to auscultation bilaterally. ?No crackles, rales, rhonchi, wheezes heard. CARDIAC SYSTEM Regular rate and rhythm. ?S1 and S2 heard no murmurs. 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 No deformities noted. ?No synovitis noted to the MCPs, PIPs or DIPs. ?No tenderness to palpation of these joints. Heberden's nodes noted throughout Wrists: ?Full range of motion at the wrists without pain. ?No tenderness to palpation or synovitis noted to the wrists. Elbows: Full range of motion without pain. No tenderness, weakness, swelling, increased warmth or erythema. Shoulders: Full range of motion without pain. No tenderness, weakness, swelling, increased warmth or erythema. Hips: Full range of motion without pain. Hip bursa: No tenderness to palpation Knees: ?Full range of motion. ?No tenderness, swelling, increased warmth or erythema.?No effusion or crepitations Ankles: Full range of motion. ?No tenderness, swelling, increased warmth or erythema.? Feet: ?Negative squeeze test. ?No tenderness to palpation or swelling of the MTPs. Tender points:?No tenderness to palpation of the bilateral trapezius, supraspinatus, greater trochanters, anterior costochondral junctions, bilateral gluteal areas, bilateral suboccipital muscle insertions SKIN Skin intact without rashes. Results Reviewed Results Reviewed: Scanned results reviewed Assessment & Plan Assessment & Plan (1) Polymyalgia rheumatica: Comment: onset 08/2022. Prednisone started More small joint symptoms 07/2024 HCQ started 07/2024 effective Code(s): M35.3 - Polymyalgia rheumatica Category: Medical Plan: #PMR/Inflammatory arthritis Patient is an 84-year-old female with PMR complicated by inflammatory arthritis here today for follow up. Patient doing well on the Plaquenil however was unable to taper her prednisone. Given her age, osteopenia and other co morbidities we would like to taper the prednisone to off. To facilitate this we will change her medication. Discussed methotrexate and leflunomide and patient prefers to be on leflunomide because she is concerned about hair thinning with methotrexate. We will start leflunomide leflunomide 20 mg daily and stop her Plaquenil. We will continue this leflunomide for the next 3 months and repeat blood work including LFTs and inflammatory markers. Continue Prednisone at the current dose with plans to taper at the next visit Plan - Stop plaquenil - Start leflunomide 20mg daily - Continue prednisone 2.5mg bid - RTC 3 months - Labs before visit: CBC, CMP, ESR, CRP, hepatitis panel, T spot (2) Osteopenia with high risk of fracture: Comment: DEXA January 2023: T-score -1.9 in the femoral neck. Major osteoporotic fracture risk 22.7%, hip fracture 7.4% Alendronate February 2023- present Code(s): M85.80 - Other specified disorders of bone density and structure, unspecified site Category: Medical Plan: #Osteopenia Patient with osteopenia and a high FRAX index. No falls or fractures since last visit. We will continue with alendronate Plan - Alendronate 70mg PO weekly - Repeat DEXA - Continue vitamin D supplementation (3) Osteoarthritis involving multiple joints on both sides of body: Code(s): M15.9 - Polyosteoarthritis, unspecified Plan: #Polyarticular OA Patient with polyarticular osteoarthritis who is now complaining of tailbone pain. 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 Discuss this with the patient and recommended stretches Plan - Strecthes given to patient (4) Encounter for monitoring leflunomide therapy: Code(s): Z51.81 - Encounter for therapeutic drug level monitoring; Z79.69 - joint terminal attack controller (current) use of other immunomodulators and immunosuppressants Plan: #Long-term leflunomide Discussed with patient the benefits and risks of leflunomide for managing the rheumatic condition Benefits include: - Reduced pain, maintenance of remission and reduction of flares Risks include: - GI upset especially diarrhea, skin rash, cytopenias, hepatotoxicity, weight loss, neuropathy Leflunomide is highly teratogenic. ?Has a very long half-life. ?Needs cholestyramine washout if there is desire for Initiation: ?CBC, BMP, LFTs, hepatitis-B and C serologies every 2-4 weeks for 3 months Monitoring: ?CBC, BMP, LFTs, hepatitis B and C serologies (5) joint terminal attack controller (current) use of systemic steroids: Code(s): Z79.52 - prison (current) use of systemic steroids Plan: #Long-term Use of Steroids Discussed with patient the risks and benefits of steroid for managing the rheumatic condition Benefits include: - Reduced pain, improved mobility, increased participation in activities, and decreased progression of disease Risks include: - GI upset, potential ultrasound worsening or formation (especially in patients > 65 years old), elevated blood pressure/worsening hypertension, elevated blood sugar/worsening diabetes control, worsening of bone density, elevated lipids/worsening triglycerides, cataract formation, weight gain Recommended using proton pump inhibitors (PPIs) for the duration of steroid use to reduce the risk of gastric ulcers and vitamin-D daily to reduce the risk of osteoporosis Labs checked: ?A1c, T spot, hepatitis-B and C serologies Pneumocystis jiroveci prophylaxis: ?Patient with risk factors including steroids greater than 50 mg for more than 30 days, age greater than 60 years, and lung involvement from underlying rheumatic disease requires prophylaxis and will be given so (6) Encounter for ongoing osteoporosis therapy, non-bisphosphonates: Code(s): M81.0 - Age-related osteoporosis without current pathological fracture; Z79.899 - Other halfway (current) drug therapy Plan: #Long-term Use of Bisphosphonates Risks and benefits of bisphosphonates in the management of osteoporosis Benefits include improved bone density, decreased fracture risk Risks include atypical femoral fractures, GI upset, esophageal strictures Contraindicated in patients with a creatinine clearance < 30 to 35 ml/min Keep vitamin-D at least 35 ng/mL Plan I spent 36 minutes reviewing the record and labs, taking a history, examining the patient, discussing the treatment plan, ordering diagnostic work up and documenting in the medical record Orders: Orders Comprehensive Met. Panel 3 Months M35.3 - Polymyalgia rheumatica, Z51.81 - Encounter for therapeutic drug level monitoring, Z79.69 - joint terminal attack controller (current) use of other immunomodulators and immunosuppressants Hepatitis A,B,C Profile 3 Months M35.3 - Polymyalgia rheumatica, Z51.81 - Encounter for therapeutic drug level monitoring, Z79.69 - joint terminal attack controller (current) use of other immunomodulators and immunosuppressants Rheumatoid Factor 3 Months M35.3 - Polymyalgia rheumatica, Z51.81 - Encounter for therapeutic drug level monitoring, Z79.69 - joint terminal attack controller (current) use of other immunomodulators and immunosuppressants Complete Blood Count Auto Diff 3 Months M35.3 - Polymyalgia rheumatica, Z51.81 - Encounter for therapeutic drug level monitoring, Z79.69 - prison (current) use of other immunomodulators and immunosuppressants C Reactive Protein 3 Months M35.3 - Polymyalgia rheumatica, Z51.81 - Encounter for therapeutic drug level monitoring, Z79.69 - joint terminal attack controller (current) use of other immunomodulators and immunosuppressants Erythrocyte Sedimentation Rate 3 Months M35.3 - Polymyalgia rheumatica, Z51.81 - Encounter for therapeutic drug level monitoring, Z79.69 - prison (current) use of other immunomodulators and immunosuppressants T Spot TB 3 Months M35.3 - Polymyalgia rheumatica, Z51.81 - Encounter for therapeutic drug level monitoring, Z79.69 - joint terminal attack controller (current) use of other immunomodulators and immunosuppressants Cyclic Citrullinated Peptide 3 Months M35.3 - Polymyalgia rheumatica, Z51.81 - Encounter for therapeutic drug level monitoring, Z79.69 - joint terminal attack controller (current) use of other immunomodulators and immunosuppressants Medications: New leflunomide 20 mg PO DAILY 90 tabs 1RF M06.00 - Rheumatoid arthritis without rheumatoid factor, unspecified site Refilled alendronate 70 mg PO QWEEK 12 tabs 1RF M85.80 - Other specified disorders of bone density and structure, unspecified site prednisone 5 mg (2 x 2.5 mg) PO DAILY 180 tabs 1RF Discontinued hydroxychloroquine Discontinued Reason: Doctor's Order 200 mg PO BID 180 tabs 1RF Coding Level of Care Code Est Pt Level 4 (38834) Complex EM visit Add On G2211 Diagnoses Polymyalgia rheumatica M35.3 Osteopenia with high risk of fracture M85.80 Osteoarthritis involving multiple joints on both sides of body M15.9 Encounter for monitoring leflunomide therapy Z51.81; Z79.69 joint terminal attack controller (current) use of systemic steroids Z79.52 Encounter for ongoing osteoporosis therapy, non-bisphosphonates M81.0; Z79.899
== END 2025-01-08 15:48 | disposition home or self-care (01) ==
LOC: HO.RHE 14:43
PROVIDERS: PCP Internal Medicine; Visit Provider Student in an Organized Health Care Education/Training Program
DX: M35.3 Polymyalgia rheumatica (principal); M85.80 Other specified disorders of bone density and structure, unspecified site; M15.9 Polyosteoarthritis, unspecified; Z51.81 Encounter for therapeutic drug level monitoring; Z79.69 Long term (current) use of other immunomodulators and immunosuppressants; Z79.52 Long term (current) use of systemic steroids; M81.0 Age-related osteoporosis without current pathological fracture; Z79.899 Other long term (current) drug therapy
CPT/HCPCS: 99214; G2211

== ENCOUNTER → 2025-01-08 14:43 | Outpatient (BNVA) | payer MEDICARE, SELFPAY | PROVIDERS: PCP Internal Medicine; Visit Provider Student in an Organized Health Care Education/Training Program | DX: M35.3 Polymyalgia rheumatica (principal); M85.80 Other specified disorders of bone density and structure, unspecified site; M15.9 Polyosteoarthritis, unspecified; M81.0 Age-related osteoporosis without current pathological fracture; Z51.81 Encounter for therapeutic drug level monitoring; Z79.69 Long term (current) use of other immunomodulators and immunosuppressants; Z79.52 Long term (current) use of systemic steroids; Z79.899 Other long term (current) drug therapy | CPT/HCPCS: 99212 ==

== ENCOUNTER 2025-02-18 10:50 | Outpatient (REF) | payer MEDICARE, SELFPAY ==
--- NOTE | ~2025-02-18 | MM_ITS ---
EXAMINATION: DXA BONE DENSITY AXIAL HISTORY: M81.0 - Age-related osteoporosis without current pathological fracture TECHNIQUE: Biotz Dual energy absorptiometry (DEXA) of the lumbar spine, total left hip, and femoral neck was performed. COMPARISON: Comparison is made with the prior examination dated 02/17/2023. FINDINGS: The bone mineral density of the lumbar spine is 1.218 with a T-score of 0.3, and a Z-score of 1.6. This is indicative of normal bone mineral density. This represents a BMD change of 8.8% compared to the prior exam. This is statistically significant. The bone mineral density of the left total hip is 0.910 with a T-score of -0.8, and a Z-score of 0.9. This is indicative of normal bone mineral density. This represents a BMD change of 0.1% compared to the prior exam. This is not statistically significant. The bone mineral density of the left femoral neck is 0.767 with a T-score of -2.0, and a Z-score of -0.1. This is indicative of osteopenia.- This represents a BMD change of 0.3% compared to the prior exam. FRACTURE RISK: The FRAX index suggests a ten year probability of major osteoporotic fracture of 28.4%, and of hip fracture 10.8%. MM/XR DEXA axial skeleton IMPRESSION: Based on bone mineral density, and according to World Health Organization (WHO) criteria, the diagnosis is consistent with osteopenia. All bone density values are in grams per centimeter squared (g/cm2). Statistically, 68% of repeat scans fall within 1 SD (+/- 0.010 g/cm2 for AP spine L1-L4) and 1 SD (+/- 0.012 g/cm2 for femur total) FRAX is a trademark of the [employer] [facility] [employer], a World Health Organization (WHO) Collaborating Center. Electronically signed by: Juanpablo Meza MD 02/19/2025 10:27 AM EDT
== END 2025-02-18 10:51 | disposition home or self-care (01) ==
LOC: HO.MAMMO 10:50
PROVIDERS: PCP Internal Medicine; Visit Provider Student in an Organized Health Care Education/Training Program
DX: M81.0 Age-related osteoporosis without current pathological fracture (principal)
CPT/HCPCS: 77080

== ENCOUNTER → 2025-02-18 11:00 | Outpatient (BNV) | payer MEDICARE, SELFPAY | PROVIDERS: PCP Internal Medicine; Visit Provider Radiology Diagnostic Radiology | DX: E28.39 Other primary ovarian failure (principal) | CPT/HCPCS: 77080 ==

== ENCOUNTER 2025-04-16 13:49 | Outpatient (AMB) | payer MEDICARE, SELFPAY ==
[2025-04-16 13:58] VITALS: BP 132/82; PULSE 80; O2SAT 96; BMI 32.0
--- NOTE | 2025-04-16 13:58 | MHC.OFFVIS ---
Vital Signs 04/16/25 13:58 Height 5 ft 5 in Weight 192 lb 7.417 oz BMI 32.0 BP 132/82 Blood Pressure Location Lt brachial Position Sitting Pulse 80 Pulse Source Pulse Oximeter Pulse Oximetry (%) 96 Oxygen Delivery Method Room Air Intake Visit Reasons: RA/PMR Intake Note: Patient last seen on 01/08/25. Presents today for RA/PMR follow up and test results. Allergies omeprazole Adverse Reaction (Unknown, Verified 04/16/25 14:01) Hives Penicillins Adverse Reaction (Unknown, Verified 04/16/25 14:01) Hives HPI Comments Details: Patient is an 84-year-old female with hypertension, osteopenia with high fracture risk and polymyalgia rheumatica/seronegative rheumatoid arthritis here today for follow up Interval History: Patient last seen 01/08/25 with me. At that time she had failed her decrease of prednisone and remained on 2.5 mg daily along with hydroxychloroquine. She was also complaining of some tailbone pain at that time. Because we were unable to wean the prednisone on the hydroxychloroquine she was changed to leflunomide (did not want methotrexate because of the risk of hair thinning) Doing well on the leflunomide No side effects Rheumatologic History: PMR/seronegative rheumatoid arthritis onset 08/2022. Prednisone started More small joint symptoms 07/2024 HCQ started 07/2024 effective Osteopenia with high FRAX DEXA January 2023: T-score -1.9 in the femoral neck. Major osteoporotic fracture risk 22.7%, hip fracture 7.4% Alendronate February 2023- present Current Rheumatology Medication(s): Leflunomide 20mg daily Prednisone 2.5mg bid Alendronate 70 mg weekly Vitamin-D supplementation [facility] Medical History Aortic valve disorder Essential hypertension Mitral valve disorder Sciatica GERD (gastroesophageal reflux disease) Migraine Surgical History H/O cataract extraction History of bladder surgery History of right knee joint replacement Hx of colonoscopy History of arthroplasty of knee History of heart valve replacement Family History Father Myocardial infarction Mother Heart failure Daughter Lupus (systemic lupus erythematosus) Social History Household Members: None Alcohol intake: current Alcohol intake frequency: does not drink Patient Tobacco Use Status: Former Tobacco user Review of Systems Const Details: Review of Systems Constitutional: Denies fever, chills, weight loss ENT: Denies vision changes, eye pain or eye redness, dental caries, dry mouth GI: Denies nausea, vomiting, diarrhea, abdominal pain, change in BM Pulm: Denies SOB, ELIZABETH, hemoptysis, wheezing Cards: Denies chest pain, palpitations Skin: Denies Raynaud's, rash, nail changes, photosensitivity, YOUTH PROBATION OFFICER: Denies headaches, weakness, paresthesias, recurrent falls MSK: as per HPI All other systems reviewed and are unremarkable except noted above Physical Exam Vital Signs: Last Vital Signs Pulse 80 04/16/25 13:58 BP 132/82 04/16/25 13:58 Pulse Ox 96 04/16/25 13:58 Oxygen Delivery Method Room Air 04/16/25 13:58 BMI result Body Mass Index 32.0 Vital signs reviewed Physical Examination CONSTITUITIONAL Patient alert and cooperative. Well appearing and in no apparent painful distress HEENT Conjunctiva and sclera clear. ?Pupils equal round and reactive to light. ?No lymphadenopathy. ? CHEST/RESPIRATORY SYSTEM Normal respiratory effort and able to speak in complete sentences. ?Clear to auscultation bilaterally. ?No crackles, rales, rhonchi, wheezes heard. CARDIAC SYSTEM Regular rate and rhythm. ?S1 and S2 heard no murmurs. ?Radial pulses intact bilaterally MSK Hands: ?Good director sales and trade marketing strength bilaterally. No deformities noted. ?No synovitis noted to the MCPs, PIPs or DIPs. ?No tenderness to palpation of these joints. Heberden's nodes noted throughout Wrists: ?Full range of motion at the wrists without pain. ?No tenderness to palpation or synovitis noted to the wrists. Elbows: Full range of motion without pain. No tenderness, weakness, swelling, increased warmth or erythema. Shoulders: Full range of motion without pain. No tenderness, weakness, swelling, increased warmth or erythema. Knees: ?Full range of motion. ?No tenderness, swelling, increased warmth or erythema.?No effusion or crepitations Ankles: Full range of motion. ?No tenderness, swelling, increased warmth or erythema.? Feet: ?Negative squeeze test. ?No tenderness to palpation or swelling of the MTPs. Tender points:?No tenderness to palpation of the bilateral trapezius, supraspinatus, greater trochanters, anterior costochondral junctions, bilateral gluteal areas, bilateral suboccipital muscle insertions SKIN Skin intact without rashes. Results Reviewed Results Reviewed: [facility] Results reviewed 04/04/25 AST/ALT normal Assessment & Plan Assessment & Plan (1) Polymyalgia rheumatica: Comment: onset 08/2022. Prednisone started More small joint symptoms 07/2024 HCQ started 07/2024 - 11/2024. Unable to taper prednisone Leflunomide 11/2024 - Code(s): M35.3 - Polymyalgia rheumatica Category: Medical Plan: #PMR/Inflammatory arthritis Patient is an 84-year-old female with PMR complicated by inflammatory arthritis here today for follow up. Patient doing well on leflunomide and we will try to taper her prednisone Plan - Leflunomide 20mg daily - Decrease prednisone 2.5mg daily - RTC 3 months - Labs before visit: CBC, CMP, ESR, CRP (2) Osteopenia with high risk of fracture: Comment: DEXA 01/2023: AP spine -0.5, Left femur neck -1.9, Left femur total -0.8 DEXA 01/2025: AP spine 0.3, Left femur neck -2.0, Left femur total -0.8 Alendronate February 2023- present Code(s): M85.80 - Other specified disorders of bone density and structure, unspecified site Category: Medical Plan: #Osteopenia Patient with osteopenia and a high FRAX index. Not much improvement on the alendronate. We will discuss switching medications at the next visit Plan - Alendronate 70mg PO weekly - Continue vitamin D supplementation (3) Osteoarthritis involving multiple joints on both sides of body: Code(s): M15.9 - Polyosteoarthritis, unspecified Plan: #Polyarticular OA Patient with polyarticular osteoarthritis. Tailbone pain improved (4) Encounter for monitoring leflunomide therapy: Code(s): Z51.81 - Encounter for therapeutic drug level monitoring; Z79.69 - assistant terminal manager (current) use of other immunomodulators and immunosuppressants Plan: #Long-term leflunomide Discussed with patient the benefits and risks of leflunomide for managing the rheumatic condition Benefits include: - Reduced pain, maintenance of remission and reduction of flares Risks include: - GI upset especially diarrhea, skin rash, cytopenias, hepatotoxicity, weight loss, neuropathy Leflunomide is highly teratogenic. ?Has a very long half-life. ?Needs cholestyramine washout if there is desire for Initiation: ?CBC, BMP, LFTs, hepatitis-B and C serologies every 2-4 weeks for 3 months Monitoring: ?CBC, BMP, LFTs, hepatitis B and C serologies (5) assistant terminal manager (current) use of systemic steroids: Code(s): Z79.52 - penitentiary (current) use of systemic steroids Plan: #Long-term Use of Steroids Discussed with patient the risks and benefits of steroid for managing the rheumatic condition Benefits include: - Reduced pain, improved mobility, increased participation in activities, and decreased progression of disease Risks include: - GI upset, potential ultrasound worsening or formation (especially in patients > 65 years old), elevated blood pressure/worsening hypertension, elevated blood sugar/worsening diabetes control, worsening of bone density, elevated lipids/worsening triglycerides, cataract formation, weight gain Recommended using proton pump inhibitors (PPIs) for the duration of steroid use to reduce the risk of gastric ulcers and vitamin-D daily to reduce the risk of osteoporosis Labs checked: ?A1c, T spot, hepatitis-B and C serologies Pneumocystis jiroveci prophylaxis: ?Patient with risk factors including steroids greater than 50 mg for more than 30 days, age greater than 60 years, and lung involvement from underlying rheumatic disease requires prophylaxis and will be given so (6) Encounter for ongoing osteoporosis therapy, non-bisphosphonates: Code(s): M81.0 - Age-related osteoporosis without current pathological fracture; Z79.899 - Other terminal make up operator (current) drug therapy Plan: #Long-term Use of Bisphosphonates Risks and benefits of bisphosphonates in the management of osteoporosis Benefits include improved bone density, decreased fracture risk Risks include atypical femoral fractures, GI upset, esophageal strictures Contraindicated in patients with a creatinine clearance < 30 to 35 ml/min Keep vitamin-D at least 35 ng/mL Plan I spent 36 minutes reviewing the record and labs, taking a history, examining the patient, discussing the treatment plan, ordering diagnostic work up and documenting in the medical record Coding Level of Care Code Est Pt Level 4 (64888) Complex EM visit Add On G2211 Diagnoses Polymyalgia rheumatica M35.3 Osteopenia with high risk of fracture M85.80 Osteoarthritis involving multiple joints on both sides of body M15.9 Encounter for monitoring leflunomide therapy Z51.81; Z79.69 assistant terminal manager (current) use of systemic steroids Z79.52 Encounter for ongoing osteoporosis therapy, non-bisphosphonates M81.0; Z79.899
== END 2025-04-16 14:42 | disposition home or self-care (01) ==
LOC: HO.RHE 13:49
PROVIDERS: PCP Internal Medicine; Visit Provider Student in an Organized Health Care Education/Training Program
DX: M35.3 Polymyalgia rheumatica (principal); M85.80 Other specified disorders of bone density and structure, unspecified site; M15.9 Polyosteoarthritis, unspecified; Z51.81 Encounter for therapeutic drug level monitoring; Z79.69 Long term (current) use of other immunomodulators and immunosuppressants; Z79.52 Long term (current) use of systemic steroids; M81.0 Age-related osteoporosis without current pathological fracture; Z79.899 Other long term (current) drug therapy
CPT/HCPCS: 99214; G2211

== ENCOUNTER → 2025-04-16 13:49 | Outpatient (BNVA) | payer MEDICARE, SELFPAY | PROVIDERS: PCP Internal Medicine; Visit Provider Student in an Organized Health Care Education/Training Program | DX: M35.3 Polymyalgia rheumatica (principal); M85.80 Other specified disorders of bone density and structure, unspecified site; M15.9 Polyosteoarthritis, unspecified; Z51.81 Encounter for therapeutic drug level monitoring; Z79.69 Long term (current) use of other immunomodulators and immunosuppressants; M81.0 Age-related osteoporosis without current pathological fracture; Z79.52 Long term (current) use of systemic steroids; Z79.899 Other long term (current) drug therapy | CPT/HCPCS: 99212 ==

== ENCOUNTER 2025-07-22 15:39 | Outpatient (AMB) | payer MEDICARE, SELFPAY ==
--- NOTE | 2025-07-22 15:44 | A.OFFVIS_ITS ---
Vital Signs 07/22/25 15:50 Height 5 ft 5 in Weight 182 lb 1.629 oz BMI 30.3 BP 140/74 H Blood Pressure Location Rt brachial Position Sitting Pulse 87 Pulse Source Pulse Oximeter Pulse Oximetry (%) 99 Oxygen Delivery Method Room Air Intake Visit Reasons: follow up Intake Note: Patient presents for RA/PMR follow up. Allergies omeprazole Adverse Reaction (Unknown, Verified 07/22/25 15:49) Hives Penicillins Adverse Reaction (Unknown, Verified 07/22/25 15:49) Hives HPI Comments Details: Patient is an 85-year-old female with hypertension, osteopenia with high fracture risk and polymyalgia rheumatica/seronegative rheumatoid arthritis here today for follow up Interval History: Patient last seen 04/16/25 with me - On Leflunomide 20mg daily, prednisone 2.5mg bid, alendronate 70mg and vit D - Doing well, no synovitis - Prednisone decreased to 2.5mg daily Today - On Leflunomide 20mg daily, prednisone 2.5mg daily, alendronate 70mg and vit D - Noticed that after decreasing the prednisone she was doing okay for 3 months but noticed right shoulder pain and some hand pain, but overall still well Rheumatologic History: PMR/seronegative rheumatoid arthritis onset 08/2022. Prednisone started More small joint symptoms 07/2024 HCQ started 07/2024 effective Osteopenia with high FRAX DEXA January 2023: T-score -1.9 in the femoral neck. Major osteoporotic fracture risk 22.7%, hip fracture 7.4% Alendronate February 2023- present Current Rheumatology Medication(s): Leflunomide 20mg daily Prednisone 2.5mg daily Alendronate 70 mg weekly Vitamin-D supplementation [facility] Medical History Aortic valve disorder Essential hypertension Mitral valve disorder Sciatica GERD (gastroesophageal reflux disease) Migraine Surgical History H/O cataract extraction History of bladder surgery History of right knee joint replacement Hx of colonoscopy History of arthroplasty of knee History of heart valve replacement Family History Father Myocardial infarction Mother Heart failure Daughter Lupus (systemic lupus erythematosus) Social History Household Members: None Alcohol intake: current Alcohol intake frequency: does not drink Patient Tobacco Use Status: Former Tobacco user Review of Systems Const Details: Review of Systems Constitutional: Denies fever, chills, weight loss ENT: Denies vision changes, eye pain or eye redness, dental caries, dry mouth GI: Denies nausea, vomiting, diarrhea, abdominal pain, change in BM Pulm: Denies SOB, ELIZABETH, hemoptysis, wheezing Cards: Denies chest pain, palpitations Skin: Denies Raynaud's, rash, nail changes, photosensitivity, CONTROLS ENGINEER: Denies headaches, weakness, paresthesias, recurrent falls MSK: as per HPI All other systems reviewed and are unremarkable except noted above Physical Exam Exam Exam: Vital signs reviewed Physical Examination CONSTITUITIONAL Patient alert and cooperative. Well appearing and in no apparent painful distress MSK Hands * Right Hand: Able to make a fist. No swelling or tenderness to palpation of the MCPs, PIPs or DIPs. * Left Hand: Able to make a fist. No swelling or tenderness to palpation of the MCPs, PIPs or DIPs. * Herbedens nodes noted bilaterally Wrists * Right Wrist: Full ROM to flexion and extension. No swelling or TTP * Left Wrist: Full ROM to flexion and extension. No swelling or TTP Elbows * Right Elbow: Full ROM. No swelling or TTP. No TTP of the medial epicondyle. No TTP of the lateral epicondyle * Left Elbow: Full ROM. No swelling or TTP. No TTP of the medial epicondyle. No TTP of the lateral epicondyle Shoulders * Right shoulder: No swelling noted. No TTP of the AC joint. TTP of the subacromial bursa. No TTP of the posterior shoulder * Left shoulder: No swelling noted. No TTP of the AC joint. No TTP of the subacromial bursa. No TTP of the posterior shoulder * Decreased ROM to bilateral shoulders. Knees * Right knee: Full ROM. No swelling noted. No TTP of the knee joint line. No TTP of pes anserine bursa * Left knee: Full ROM. No swelling noted. No TTP of the knee joint line. No TTP of pes anserine bursa. * Crepitations felt bilaterally Ankles * Right ankle: Good ankle dorsiflexion and plantar flexion. No swelling. No TTP of the ankle joint * Left ankle: Good ankle dorsiflexion and plantar flexion. No swelling. No TTP of the ankle joint Feet * Right foot: Negative squeeze test * Left foot: Negative squeeze test Tender points? * No tenderness to palpation of the bilateral trapezius, supraspinatus, anterior costochondral junctions, bilateral suboccipital muscle insertions SKIN No rashes Vital Signs: Last Vital Signs Pulse 87 07/22/25 15:50 BP 140/74 H 07/22/25 15:50 Pulse Ox 99 07/22/25 15:50 Oxygen Delivery Method Room Air 07/22/25 15:50 BMI result Body Mass Index 30.3 Results Reviewed Results Reviewed: 07/11/25 Vizcarra WBC 6.44 Hb 12.1 Plt 156 BUN 17 Cr 0.40 L eGFR 98 AST 21 ALT 11 ESR 36 H CRP 3.2 Vit D 40 DEXA 01/2025 FINDINGS: The bone mineral density of the lumbar spine is 1.218 with a T-score of 0.3, and a Z-score of 1.6. This is indicative of normal bone mineral density. This represents a BMD change of 8.8% compared to the prior exam. This is statistically significant. The bone mineral density of the left total hip is 0.910 with a T-score of -0.8, and a Z-score of 0.9. This is indicative of normal bone mineral density. This represents a BMD change of 0.1% compared to the prior exam. This is not statistically significant. The bone mineral density of the left femoral neck is 0.767 with a T-score of -2.0, and a Z-score of -0.1. This is indicative of osteopenia.- This represents a BMD change of 0.3% compared to the prior exam. FRACTURE RISK: The FRAX index suggests a ten year probability of major osteoporotic fracture of 28.4%, and of hip fracture 10.8%. Assessment & Plan Assessment & Plan (1) Polymyalgia rheumatica: Comment: onset 08/2022. Prednisone started More small joint symptoms 07/2024 HCQ started 07/2024 - 11/2024. Unable to taper prednisone Leflunomide 11/2024 - Code(s): M35.3 - Polymyalgia rheumatica Category: Medical Plan: #PMR/Inflammatory arthritis Patient is an 85-year-old female with PMR complicated by inflammatory arthritis here today for follow up. Patient doing well on leflunomide. Decrease prednisone to 2.5 mg daily. Noting increased symptoms in her right shoulder however inflammatory markers are stable showing no evidence of worsening disease. I think for now we should continue the current dose of prednisone for the next few months before considering any further tapers Plan - Leflunomide 20mg daily - Prednisone 2.5mg daily - RTC 6 months - Labs before visit: CBC, CMP, ESR, CRP (2) Osteopenia with high risk of fracture: Comment: DEXA 01/2023: AP spine -0.5, Left femur neck -1.9, Left femur total -0.8 DEXA 01/2025: AP spine 0.3, Left femur neck -2.0, Left femur total -0.8 Alendronate February 2023- present Code(s): M85.80 - Other specified disorders of bone density and structure, unspecified site Category: Medical Plan: #Osteopenia Patient with osteopenia and a high FRAX index. Not much improvement on the alendronate. Wants to continue alendronate for now Plan - Alendronate 70mg PO weekly - Continue vitamin D supplementation (3) Encounter for monitoring leflunomide therapy: Code(s): Z51.81 - Encounter for therapeutic drug level monitoring; Z79.69 - FPC (current) use of other immunomodulators and immunosuppressants Plan: #Long-term leflunomide Discussed with patient the benefits and risks of leflunomide for managing the rheumatic condition Benefits include: - Reduced pain, maintenance of remission and reduction of flares Risks include: - GI upset especially diarrhea, skin rash, cytopenias, hepatotoxicity, weight loss, neuropathy Leflunomide is highly teratogenic. ?Has a very long half-life. ?Needs cholestyramine washout if there is desire for Initiation: ?CBC, BMP, LFTs, hepatitis-B and C serologies every 2-4 weeks for 3 months Monitoring: ?CBC, BMP, LFTs, hepatitis B and C serologies (4) FPC (current) use of systemic steroids: Code(s): Z79.52 - rat exterminator (current) use of systemic steroids Plan: #Long-term Use of Steroids Discussed with patient the risks and benefits of steroid for managing the rheumatic condition Benefits include: - Reduced pain, improved mobility, increased participation in activities, and decreased progression of disease Risks include: - GI upset, potential ultrasound worsening or formation (especially in patients > 65 years old), elevated blood pressure/worsening hypertension, elevated blood sugar/worsening diabetes control, worsening of bone density, elevated lipids/worsening triglycerides, cataract formation, weight gain Recommended using proton pump inhibitors (PPIs) for the duration of steroid use to reduce the risk of gastric ulcers and vitamin-D daily to reduce the risk of osteoporosis Labs checked: ?A1c, T spot, hepatitis-B and C serologies Pneumocystis jiroveci prophylaxis: ?Patient with risk factors including steroids greater than 50 mg for more than 30 days, age greater than 60 years, and lung involvement from underlying rheumatic disease requires prophylaxis and will be given so (5) Encounter for ongoing osteoporosis therapy, non-bisphosphonates: Code(s): M81.0 - Age-related osteoporosis without current pathological fracture; Z79.899 - Other intermediate designer (current) drug therapy Plan: #Long-term Use of Bisphosphonates Risks and benefits of bisphosphonates in the management of osteoporosis Benefits include improved bone density, decreased fracture risk Risks include atypical femoral fractures, GI upset, esophageal strictures Contraindicated in patients with a creatinine clearance < 30 to 35 ml/min Keep vitamin-D at least 35 ng/mL Plan I spent 30 minutes reviewing the record and labs, taking a history, examining the patient, discussing the treatment plan, ordering diagnostic work up and documenting in the medical record Coding Level of Care Code Est Pt Level 4 (90639) Complex EM visit Add On G2211 Diagnoses Polymyalgia rheumatica M35.3 Osteopenia with high risk of fracture M85.80 Encounter for monitoring leflunomide therapy Z51.81; Z79.69 rat exterminator (current) use of systemic steroids Z79.52 Encounter for ongoing osteoporosis therapy, non-bisphosphonates M81.0; Z79.899
[2025-07-22 15:50] VITALS: BP 140/74; PULSE 87; O2SAT 99; BMI 30.3
--- OUTSIDE RECORDS SUMMARY | 2025-07-22 16:52 | XMS_ITS | Encounter Summary ---
Author Organization [facility] Address [address] [facility] [address] [place] [address] Phone Care Team Providers Care Meat Butcher Name Role Phone Bahman Goldberg MD Unavailable [phone] Katja Harvey MD Unavailable Kody Hopson MD Unavailable Rashad Merritt MD Unavailable [email or web address] Katja Harvey MD Primary Care Provider Encounter Details Date Type Department Care Team (Late st Contact Info) Description 06/03/2022 Procedure Pass [facility], [address] [address] Social History Tobacco Use Types Packs/Day Years Used Date Smoking Tobacco: Former Cigarettes 2 15 0 11/12/1975 - 11/12/1990 Smokeless Tobacco: Never Alcohol Use Standard Drinks/Week Comments Yes 0 (1 standard drink = 0.6 oz pur e alcohol) rare, < 1/month Education Answer Date Recorded What is the highest level of school you have completed or the highest degree you have received? Bachelor's degree (e.g., BA, AB, BS) 01/03/2021 Comments No Sex and Gender Information Value Date Recorded Sex Assigned at Not on file Legal Sex Female 10:11 PM EDT Gender Identity Not on file Sexual Orientation Straight 08/02/2021 12 :44 PM EDT Occupation Industry Job Start Date Job End Date Retired Not on file Not on file Not on file documented as of this encounter Plan of Treatment Upcoming Encounters Date Type Department Care Team (Late st Contact Info) Description 05/08/2025 Procedure Pass [facility] [address] [place] [address] 07/11/2025 Procedure Pass [address] [id number] 08/01/2025 1:45 PM EDT Appointment [address] [address] Katja Harvey MD [address] [place] [address] 08/07/2025 10:30 AM EDT Office Visit [facility] [address] [place] [address], [address] [address] Heidy Julio PA-C [address] [place] [address] 10/08/2025 1:30 PM EST Appointment [facility] [address] [place] [address] Justo Mendez MD [address] [place] [address] 11/12/2025 10:00 AM EST Office Visit [facility] [address] [facility], [address] [address] Justo Mendez MD [address] [place] [address] 01/23/2026 12:00 PM EDT Office Visit [facility] [address] [place] [address], [address] [address] Juanpablo Palma MD, MS [address] [place] [address] [email or web address] documented as of this encounter Visit Diagnoses Not on filedocumented in this encounter Additional Health Concerns Infection Onset Date Last Indicated Resolved Time MDR-GN Comment:Infection Loaded by the Load Infection Utility 02/09/2017 02/09/2017 05/19/2023 1:22 AM E DT documented as of this encounter Care Teams Meat Butcher Relationship Specialty Start Date End Date Katja Harvey MD [address] [place] [address] [email or web address] PCP - General Internal Medicine 08/28/17 Bahman Goldberg MD [address] [place] [address] [email or web address] Historical LMR Provider 08/13/17 Katja Harvey MD [address] [place] [address] [email or web address] Historical LMR Provider 08/13/17 Kody Hopson MD [address] [place] [address] [email or web address] Historical LMR Provider 08/13/17 Rashad Merritt MD [email or web address] Historical LMR Provider 08/13/17 documented as of this encounter Additional Source Comments The information contained in this document represents components of the legal health record. It is not the complete legal health record.[facility]
--- OUTSIDE RECORDS SUMMARY | 2025-07-22 16:53 | XMS_ITS | Encounter Summary ---
Author Organization Located Within [facility] Address [address] [facility] [address] [place] [address] Phone Care Team Providers Care Director Cardiac Name Role Phone Bahman Goldberg MD Unavailable [phone] Katja Harvey MD Unavailable Kody Hopson MD Unavailable Rashad Merritt MD Unavailable [email or web address] Katja Harvey MD Primary Care Provider Encounter Details Date Type Department Care Team (Late st Contact Info) Description 11/19/2021 Procedure Pass Non-Invasive Cardiology 22 [place] [address] Social History Tobacco Use Types Packs/Day Years [...] Info) Description 05/08/2025 Procedure Pass Echo Lab [address] [place] [address] 07/11/2025 Procedure Pass [address] [address] 08/01/2025 1:45 PM EDT Appointment [address] [address] Katja Harvey MD [address] [place] [address] [email or web address] 08/07/2025 10:30 AM EDT Office Visit [facility] [address] 3[address] [facility], [address] [address] Heidy Julio PA-C [address] [place] [address] 10/08/2025 1:30 PM EST Appointment Echo Lab [place] [address] [place] [address] Justo Mendez MD [address] [place] [address] 11/12/2025 10:00 AM EST Office Visit [facility] [address] [facility], [address] [address] Justo Mendez MD [address] [place] [address] 01/23/2026 12:00 PM EDT Office Visit [facility] [address] [facility], [address] [address] Juanpablo Palma MD, MS [address] [place] [address], [address] [address] [email or web address] documented as of this encounter Visit Diagnoses Not on filedocumented in this encounter Additional Health Concerns Infection Onset Date Last Indicated Resolved Time MDR-GN Comment:Infection Loaded by the Load Infection Utility 02/09/2017 02/09/2017 05/19/2023 1:22 AM E DT documented as of this encounter Care Teams Director Cardiac Relationship Specialty Start Date End Date Katja Harvey MD 15 [place] [address] [email or web address] PCP - General Internal Medicine 08/28/17 Bahman Goldberg MD [address] [place] [address] [email or web address] Historical LMR Provider 08/13/17 Katja Harvey MD 15 [place] [address] [email or web address] Historical LMR Provider 08/13/17 Kody Hopson MD 15 [place] [address] [email or web address] Historical LMR Provider 08/13/17 Rashad Merritt MD [email or web address] Historical LMR Provider 08/13/17 documented as of this encounter Additional Source Comments The information contained in this document represents components of the legal health record. It is not the complete legal health record.[facility]
--- OUTSIDE RECORDS SUMMARY | 2025-07-22 16:53 | XMS_ITS | Encounter Summary ---
Author Organization [facility] Address [address] [employer] [facility] [address] [place] [address] Phone Care Team Providers Care Non Destructive Testing Inspector Name Role Phone Bahman Goldberg MD Unavailable [phone] Katja Harvey MD Unavailable Kody Hopson MD Unavailable [phone] Rashad Merritt MD Unavailable [email or web address] Katja Harvey MD Primary Care Provider [phone] Encounter Details Date Type Department Care Team (Late st Contact Info) Description 10/07/2022 Transcribe Orders Virtual Department 30 [place] [address] Katja Harvey MD [address] [place] [address] [phone] [email or web address] Shoulder pain, unspecified chronicity, unspecified laterality (Primary Dx); Neck pain Social History Tobacco Use Types Packs/Day Years [...] Info) Description 05/08/2025 Procedure Pass Echo Lab [address] [place] [address] 07/11/2025 Procedure Pass [address] [address] 08/01/2025 1:45 PM EDT Appointment [address] [address] Katja Harvey MD [address] [place] [email or web address] 08/07/2025 10:30 AM EDT Office Visit [facility] [address] 3rd [facility], [address] [address] Heidy Julio PA-C [address] [place] [address] 10/08/2025 1:30 PM EST Appointment Echo Lab [address] [place] [address] Justo Mendez MD [address] [place] [address], [address] [address] 11/12/2025 10:00 AM EST Office Visit [address] 3rd [facility], [address] [address] Justo Mendez MD [address] [place] [address] 01/23/2026 12:00 PM EDT Office Visit [facility] 22 [facility] 3rd Floor, [address] [place] [address] Juanpablo Palma MD, MS 22 [facility], [address] [place] [address] [email or web address] documented as of this encounter Results * XR CERVICAL SPINE 4-5 VIEWS (10/08/2022 11:11 AM EST) Anatomical Region Laterality Modality C-spine Computed Radiogr aphy 10/09/2022 2:46 PM EST Impressions 10/09/2022 2:48 PM EST Multilevel degenerative changes of the cervical spine, most advanced at C5-6. Narrative 10/09/2022 2:48 PM EST XR CERVICAL SPINE 4-5 VIEWS COMPARISON: None. FINDINGS: There is mild C4 on C5 retrolisthesis and mild C6 on C7 anterolisthesis. The vertebral body heights are maintained. No compression fractures. There are multilevel disc degenerative changes, most advanced at C5-6. There is multilevel uncovertebral and facet arthropathy. Oblique radiographs show no severe bony neural foraminal stenosis. Normal alignment of C1 on C2 on open-mouth views. No prevertebral soft tissue thickening. Partially imaged sternotomy wires. Atherosclerotic vascular calcifications are present. Procedure Note Fabricio [facility] MD - 10/09/2022 XR CERVICAL SPINE 4-5 VIEWS COMPARISON: None. FINDINGS: There is mild C4 on C5 retrolisthesis and mild C6 on C7 anterolisthesis.The vertebral body heights are maintained. No compression fractures. Thereare multilevel disc degenerative changes, most advanced at C5-6. There ismultilevel uncovertebral and facet arthropathy. Oblique radiographs showno severe bony neural foraminal stenosis. Normal alignment of C1 on C2 onopen-mouth views. No prevertebral soft tissue thickening. Partially imagedsternotomy wires. Atherosclerotic vascular calcifications are present. IMPRESSION: Multilevel degenerative changes of the cervical spine, most advanced atC5-6. Katja Harvey MD IMG XR SPINE Final Resul t documented in this encounter Visit Diagnoses Diagnosis Shoulder pain, unspecified chronicity, unspecified laterality- Primary Neck pain Cervicalgia Shoulder pain, unspecified chronicity, unspecified laterality Neck pain Cervicalgia documented in this encounter Additional Health Concerns Infection Onset Date Last Indicated Resolved Time MDR-GN Comment:Infection Loaded by the Load Infection Utility 02/09/2017 02/09/2017 05/19/2023 1:22 AM E DT documented as of this encounter Care Teams Non Destructive Testing Inspector Relationship Specialty Start Date End Date Katja Harvey MD 15 [place] [address] [email or web address] PCP - General Internal Medicine 08/28/17 Bahman Goldberg MD [address] [place] [address] [email or web address] Historical LMR Provider 08/13/17 Katja Harvey MD 15 [place] [address] [email or web address] Historical LMR Provider 08/13/17 Kody Hopson MD 15 [place] [address] [email or web address] Historical LMR Provider 08/13/17 Rashad Merritt MD [email or web address] Historical LMR Provider 08/13/17 documented as of this encounter Additional Source Comments The information contained in this document represents components of the legal health record. It is not the complete legal health record.[facility]
--- OUTSIDE RECORDS SUMMARY | 2025-07-22 16:53 | XMS_ITS | Encounter Summary ---
Author Organization [facility] Address [address] [email or web address] [facility] [address] [place] [address] Phone Care Team Providers Care Curb Setter Helper Name Role Phone Bahman Goldberg MD Unavailable [phone] Katja Harvey MD Unavailable Kody Hopson MD Unavailable Rashad Merritt MD Unavailable [email or web address] Katja Harvey MD Primary Care Provider [phone] Encounter Details Date Type Department Care Team (Late st Contact Info) Description 04/04/2024 Ancillary Orders [facility], X-Ray - [address] [address] Katja Harvey MD [address] [place] [phone] [email or web address] Swelling of ankle, right (Primary Dx); Pain; Localized swelling of right foot Social History Tobacco Use Types Packs/Day Years Used Date Smoking Tobacco: Former Cigarettes 2 0.5 0 05/13/1990 - 11/12/1990 Smokeless Tobacco: Never Alcohol Use Standard Drinks/Week Comments Yes 0 (1 standard drink = 0.6 oz pur e alcohol) rare, < 1/month Education Answer Date Recorded Are you interested in more education? Not on armond e 02/17/2023 Are you concerned about learning? Not on file 02/17/2023 No 02/17/2023 No 02/17/2023 Digital Access Answer Date Recorded No 03/18/2023 No 03/18/2023 Reliable internet access at home? Not on file 03/18/2023 Device with a working camera? Not on file Intimate Partner Violence Answer Date R ecorded Denied Basic Needs Not on file 01/30/2024 In the past 12 months have y ou been in a relationship with a person who hurts, threatens, or tries to control you? No 01/30/2024 Worried food would run out Not on file 01/29 In the past 12 months have y ou been in a relationship with a person who hurts, threatens, or tries to control you? No 01/30/2024 Education Answer Date Recorded What is the [...] Info) Description 05/08/2025 Procedure Pass Echo [facility] [place] [address] 07/11/2025 Procedure Pass [address] [address] 08/01/2025 1:45 PM EDT Appointment [address] [address] Katja Harvey MD [address] [place] [address] 08/07/2025 10:30 AM EDT Office Visit [facility] [address] [place] [address] 3rd Floor, [address] [place] [address] Heidy Julio PA-C [address] [place] [address] 10/08/2025 1:30 PM EST Appointment Echo Lab [address] [place] [address] Justo Mendez MD [address] [place] [address], [address] [address] 11/12/2025 10:00 AM EST Office Visit [facility] [address] 3rd [facility], [address] [place] [address] Justo Mendez MD [address] [place] [address], [address] [address] 01/23/2026 12:00 PM EDT Office Visit [address] [place] [address], [address] [place] [address] Juanpablo Palma MD, MS 22 [facility], [address] [address] documented as of this encounter Results * XR FOOT 3 OR MORE VIEWS (RIGHT) (04/04/2024 2:28 PM EDT) Anatomical Region Laterality Modality Foot Right Computed Radiogr aphy 04/07/2024 1:43 AM EDT Impressions 04/07/2024 1:46 AM EDT Prior hallux valgus correction with osteotomies in the first metatarsal and first proximal phalanx secured by one screw each. Severe first metatarsophalangeal osteoarthritis. Bones demineralized. Eccentric cortical thickening along the second metatarsal diaphysis, nonspecific but could be associated with the bone stress injury. Mild tibiotalar and calcaneocuboid osteoarthritis. Narrative 04/07/2024 1:46 AM EDT XR ANKLE 3 OR MORE VIEWS (RIGHT), XR FOOT 3 OR MORE VIEWS (RIGHT) Referring clinician's provided indication for this examination in Epic: Pain COMPARISON: None FINDINGS: FOOT: Bones demineralized. Cervical changes from hallux valgus correction with osteotomies in the first metatarsal and first proximal phalanx secured by one screw each. Mild soft tissue swelling over the lateral forefoot. Eccentric cortical thickening at the second metatarsal diaphysis. Moderate to severe first metatarsophalangeal osteoarthritis. Moderate interphalangeal joint space narrowing. Roesann deformity with small plantar calcaneal spur. ANKLE: Mild ankle soft tissue swelling. No acute fracture or dislocation. Ankle mortise symmetric. Mild tibiotalar and calcaneocuboid joint space narrowing with marginal spurring. Procedure Note Jesse Smith MD - 04/07/2024 XR ANKLE 3 OR MORE VIEWS (RIGHT), XR FOOT 3 OR MORE VIEWS (RIGHT) Referring clinician's provided indication for this examination in Epic:Pain COMPARISON: None FINDINGS: FOOT: Bones demineralized. Cervical changes from hallux valgus correctionwith osteotomies in the first metatarsal and first proximal phalanxsecured by one screw each. Mild soft tissue swelling over the lateralforefoot. Eccentric cortical thickening at the second metatarsal diaphysis. Moderateto severe first metatarsophalangeal osteoarthritis. Moderateinterphalangeal joint space narrowing. Roseann deformity with smallplantar calcaneal spur. ANKLE: Mild ankle soft tissue swelling. No acute fracture or dislocation.Ankle mortise symmetric. Mild tibiotalar and calcaneocuboid joint spacenarrowing with marginal spurring. IMPRESSION: Prior hallux valgus correction with osteotomies in the first metatarsaland first proximal phalanx secured by one screw each. Severe first metatarsophalangeal osteoarthritis. Bones demineralized. Eccentric cortical thickening along the secondmetatarsal diaphysis, nonspecific but could be associated with the bonestress injury. Mild tibiotalar and calcaneocuboid osteoarthritis. us Katja Harvey MD IM XR LOWER EXTREMITY Mikaela l Result * XR ANKLE 3 OR MORE VIEWS (RIGHT) (04/04/2024 2:28 PM EDT) Anatomical Region Laterality Modality Ankle Right Computed Radiogr aphy 04/07/2024 1:43 AM EDT Impressions 04/07/2024 1:46 AM EDT Prior hallux valgus correction with osteotomies in the first metatarsal and first proximal phalanx secured by one screw each. Severe first metatarsophalangeal osteoarthritis. Bones demineralized. Eccentric cortical thickening along the second metatarsal diaphysis, nonspecific but could be associated with the bone stress injury. Mild tibiotalar and calcaneocuboid osteoarthritis. Narrative 04/07/2024 1:46 AM EDT XR ANKLE 3 OR MORE VIEWS (RIGHT), XR FOOT 3 OR MORE VIEWS (RIGHT) Referring clinician's provided indication for this examination in Epic: Pain COMPARISON: None FINDINGS: FOOT: Bones demineralized. Cervical changes from hallux valgus correction with osteotomies in the first metatarsal and first proximal phalanx secured by one screw each. Mild soft tissue swelling over the lateral forefoot. Eccentric cortical thickening at the second metatarsal diaphysis. Moderate to severe first metatarsophalangeal osteoarthritis. Moderate interphalangeal joint space narrowing. Roseann deformity with small plantar calcaneal spur. ANKLE: Mild ankle soft tissue swelling. No acute fracture or dislocation. Ankle mortise symmetric. Mild tibiotalar and calcaneocuboid joint space narrowing with marginal spurring. Procedure Note Jesse Smith MD - 04/07/2024 XR ANKLE 3 OR MORE VIEWS (RIGHT), XR FOOT 3 OR MORE VIEWS (RIGHT) Referring clinician's provided indication for this examination in Epic:Pain COMPARISON: None FINDINGS: FOOT: Bones demineralized. Cervical changes from hallux valgus correctionwith osteotomies in the first metatarsal and first proximal phalanxsecured by one screw each. Mild soft tissue swelling over the lateralforefoot. Eccentric cortical thickening at the second metatarsal diaphysis. Moderateto severe first metatarsophalangeal osteoarthritis. Moderateinterphalangeal joint space narrowing. Roseann deformity with smallplantar calcaneal spur. ANKLE: Mild ankle soft tissue swelling. No acute fracture or dislocation.Ankle mortise symmetric. Mild tibiotalar and calcaneocuboid joint spacenarrowing with marginal spurring. IMPRESSION: Prior hallux valgus correction with osteotomies in the first metatarsaland first proximal phalanx secured by one screw each. Severe first metatarsophalangeal osteoarthritis. Bones demineralized. Eccentric cortical thickening along the secondmetatarsal diaphysis, nonspecific but could be associated with the bonestress injury. Mild tibiotalar and calcaneocuboid osteoarthritis. us Katja Harvey MD IMG XR LOWER EXTREMITY Mikaela l Result documented in this encounter Visit Diagnoses Diagnosis Swelling of ankle, right- Primary Pain Generalized pain Localized swelling of right foot Swelling of ankle, right Pain Generalized pain Localized swelling of right foot Swelling of ankle, right Pain Generalized pain Localized swelling of right foot documented in this encounter Care Teams Curb Setter Helper Relationship Specialty Start Date End Date Katja Harvey MD 15 [place] [address] PCP - General Internal Medicine 08/28/17 Bahman Goldberg MD [address] [place] [address] [email or web address] Historical LMR Provider 08/13/17 Katja Harvey MD 15 [place] [address] Historical LMR Provider 08/13/17 Kody Hopson MD 15 [place] [address] [email or web address] Historical LMR Provider 08/13/17 Rashad Merritt MD [email or web address] Historical LMR Provider 08/13/17 documented as of this encounter Additional Source Comments The information contained in this document represents components of the legal health record. It is not the complete legal health record.[facility]
--- OUTSIDE RECORDS SUMMARY | 2025-07-22 16:53 | XMS_ITS | Encounter Summary ---
Author Organization [facility] Address [address] [facility] [address] [place] [address] Phone Care Team Providers Care Feller Hand Name Role Phone Bahman Goldberg MD Unavailable [phone] Katja Harvey MD Unavailable Kody Hopson MD Unavailable Rashad Merritt MD Unavailable [email or web address] Katja Harvey MD Primary Care Provider Encounter Details Date Type Department Care Team (Late st Contact Info) Description 11/22/2022 Procedure Pass [facility], [address] [address] Social History Tobacco Use Types Packs/Day Years [...] Info) Description 05/08/2025 Procedure Pass Echo Lab [address] [place] [address] 07/11/2025 Procedure Pass [address] [address] 08/01/2025 1:45 PM EDT Appointment [address] [address] Katja Harvey MD [address] [place] [address] [email or web address] 08/07/2025 10:30 AM EDT Office Visit [facility] [address] [place] [address], [address] [address] Heidy Julio PA-C [address] [place] [address] 10/08/2025 1:30 PM EST Appointment Echo Lab [address] [place] [address] Justo Mendez MD [address] [place] [address] 11/12/2025 10:00 AM EST Office Visit [facility] [address] 3rd [facility], [address] [address] Justo Mendez MD [address] [place] [address] 01/23/2026 12:00 PM EDT Office Visit [facility] [address] [place] [address], [address] [address] Juanpablo Palma MD, MS [address] [place] [address] [email or web address] documented as of this encounter Visit Diagnoses Not on filedocumented in this encounter Additional Health Concerns Infection Onset Date Last Indicated Resolved Time MDR-GN Comment:Infection Loaded by the Load Infection Utility 02/09/2017 02/09/2017 05/19/2023 1:22 AM E DT documented as of this encounter Care Teams Feller Hand Relationship Specialty Start Date End Date Katja Harvey MD [address] [place] [address] [email or web address] PCP - General Internal Medicine 08/28/17 Bahman Goldberg MD [address] [place] [address] [email or web address] Historical LMR Provider 08/13/17 Katja Harvey MD [address] [place] [address] [email or web address] Historical LMR Provider 08/13/17 Kody Hopson MD [address] [place] [address] [email or web address] Historical LMR Provider 08/13/17 Rashad Merritt MD [email or web address] Historical LMR Provider 08/13/17 documented as of this encounter Additional Source Comments The information contained in this document represents components of the legal health record. It is not the complete legal health record.[facility]
--- OUTSIDE RECORDS SUMMARY | 2025-07-22 16:53 | XMS_ITS | Encounter Summary ---
Author Organization [facility] Address [address] [place] [address] Phone Care Team Providers Care Construction Materials Tester Name Role Phone Bahman Goldberg MD Unavailable [phone] Katja Harvey MD Unavailable Kody Hopson MD Unavailable Rashad Merritt MD Unavailable [email or web address] Katja Harvey MD Primary Care Provider Encounter Details Date Type Department Care Team (Late st Contact Info) Description 01/31/2024 Procedure Pass [facility] Admitting Dept Virtual Department [address] [place] [address] Social History Tobacco Use Types Packs/Day Years [...] Info) Description 05/08/2025 Procedure Pass Echo Lab [address] [place] [address] 07/11/2025 Procedure Pass [address] [address] 08/01/2025 1:45 PM EDT Appointment [address] [address] Katja Harvey MD [address] [place] [address] 08/07/2025 10:30 AM EDT Office Visit [facility] [address] [place] [address] 3rd Floor, [address] [place] [address] Heidy Julio PA-C [address] [place] [address] 10/08/2025 1:30 PM EST Appointment Echo Lab [place] [address] [place] [address] Justo Mendez MD 22 [facility], [address] [place] [address] 11/12/2025 10:00 AM EST Office Visit [facility] [address] 3rd Floor, [address] [place] [address] Justo Mendez MD 22 [facility], [address] [place] [address] 01/23/2026 12:00 PM EDT Office Visit [facility] [address] 3rd Floor, [address] [place] [address] Juanpablo Palma MD, MS [address] [place] [address], [address] [address] [email or web address] documented as of this encounter Visit Diagnoses Not on filedocumented in this encounter Care Teams Construction Materials Tester Relationship Specialty Start Date End Date Katja Harvey MD [address] [place] [address] [email or web address] PCP - General Internal Medicine 08/28/17 Bahman Goldberg MD [address] [place] [address] [email or web address] Historical LMR Provider 08/13/17 Katja Harvey MD [address] [place] [address] [email or web address] Historical LMR Provider 08/13/17 Kody Hopson MD [address] [place] [address] [email or web address] Historical LMR Provider 08/13/17 Rashad Merritt MD [email or web address] Historical LMR Provider 08/13/17 documented as of this encounter Additional Source Comments The information contained in this document represents components of the legal health record. It is not the complete legal health record.[facility]
--- OUTSIDE RECORDS SUMMARY | 2025-07-22 16:53 | XMS_ITS | Encounter Summary ---
Author Organization [facility] Address Formerly [facility] [employer] [facility] [address] [place] [address] Phone Care Team Providers Care Social Service Coordinator Name Role Phone Bahman Goldberg MD Unavailable [phone] Katja Harvey MD Unavailable [phone] Kody Hopson MD Unavailable Rashad Merritt MD Unavailable [email or web address] Kody Locke DO Unavailable Nathan Arellano MD Unavailable [phone] Jung Mitchell MD Unavailable Mer Varela MD Unavailable Jazz Galvez MD Unavailable [phone] Katja Harvey MD Primary Care Provider [phone] Encounter Details Date Type Department Care Team (Late st Contact Info) Description 03/30/2018 Transcribe Orders [facility] [address] [place] [address] Katja Harvey MD [address] [place] [address] [id number] [email or web address] 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, 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); OA (ocular albinism) Social History Tobacco Use Types Packs/Day Years Used Date Smoking Tobacco: Former Cigarettes 2 15 0 11/12/1975 - 11/12/1990 Smokeless Tobacco: Never Alcohol Use Standard Drinks/Week Comments Yes 0 (1 standard drink = 0.6 oz pur e alcohol) rare, < 1/month Comments No Sex and Gender Information Value [...] Info) Description 05/08/2025 Procedure Pass Echo Lab [address] [place] [address] 07/11/2025 Procedure Pass [address] [address] 08/01/2025 1:45 PM EDT Appointment [address] [address] Katja Harvey MD [address] [place] [address] [email or web address] 08/07/2025 10:30 AM EDT Office Visit [facility] [address] [place] [address], [address] [address] Heidy Julio PA-C [address] [place] [address] 10/08/2025 1:30 PM EST Appointment Echo [facility] [place] [address] [place] [address] Justo Mendez MD [address] [place] [address] 11/12/2025 10:00 AM EST Office Visit [facility] [address] [place] [address], [address] [address] Justo Mendez MD [address] [facility], [address] [place] [address] [email or web address] 01/23/2026 12:00 PM EDT Office Visit [facility] [address] [facility] 3rd Floor, [address] [place] [address] Juanpablo Palma MD, [place] [address] [facility], [address] [place] [address] [email or web address] documented as of this encounter Results * CBC (03/30/2018 8:39 AM EDT) Pathologist [facility] WBC 5.53 3.40 - 11.20 K/uL [facility] RBC 4.15 3.80 - 4.80 M/uL [facility] HGB 12.9 12.0 - 15.0 g/dL [facility] HCT 38.6 36.0 - 46.0 % [facility] PLT 193 130 - 400 K/uL [facility] MCV 93.0 79.0 - 98.0 fL [facility] MCH 31.1 27.0 - 34.8 pg [facility] MCHC 33.4 31.5 - 36.0 g/dL [facility] RDW 13.9 10.8 - 14.6 % [facility] MPV 11.4 9.4 - 12.4 fl [facility] NRBC 0.00 /100 WBCs [facility] ABSOLUTE NRBC 0.00 K/uL [facility] Blood 03/30/2018 8:39 AM EDT 03/30/2018 8:43 AM EDT Katja Harvey MD LAB BLOOD ORDERABLES Final Result [facility] [address] [place] [address] * (ABNORMAL) Lipid panel (03/30/2018 8:39 AM EDT) Pathologist [facility] HDL 72 mg/dL [facility] Comment: Interpretation: Risk Level Females Decreased >55mg/dL Average 50-55 mg/dL Increased <50 mg/dL CHOLESTEROL 187 0 - 240 mg/dL [facility] TRIGLYCERIDES 69 30 - 160 mg/dL [facility] LDL 101 50 - 129 mg/dL [facility] Comment: LDL levels in terms of risk for coronary heart disease: <100 mg/dL: Optimal 100-129 mg/dL: Near or above optimal 130-159 mg/dL: Borderline high 160-189 mg/dL: High >190 mg/dL: Very High CARDIAC RISK RATIO 2.6(L) 3.3 - 4.4 C [facility] Blood 03/30/2018 8:39 AM EDT 03/30/2018 8:43 AM EDT us Katja Harvey MD LAB BLOOD ORDERABLES Final Result Performing Organization Address City/State/[facility] Co de Phone Number [address] [address] * (ABNORMAL) Comprehensive metabolic panel (03/30/2018 8:39 AM EDT) SODIUM 143 133 - 146 mmol/L [facility] POTASSIUM 4.4 3.3 - 5.1 mmol/L [facility] CHLORIDE 104 96 - 108 mmol/L [facility] CO2 30 21 - 35 mmol/L [facility] BUN 27(H) 6 - 19 mg/dL [facility] CREATININE 0.60 0.5 - 1.5 mg/dL [facility] GLUCOSE 98 70 - 99 mg/dL [facility] ALBUMIN 3.7(L) 3.9 - 4.8 g/dL [facility] TOTAL PROTEIN 6.7 6.5 - 8.0 g/dL [facility] CALCIUM 9.1 8.4 - 10.3 mg/dL [facility] ALKALINE PHOSPHATASE 79 39 - 117 U/L [facility] TOTAL BILIRUBIN 0.5 0.0 - 1.2 mg/dL [facility] AST 20 0 - 37 U/L [facility] ALT 14 0 - 40 U/L [facility] GLOBULIN 3.0 1 - 4.8 g/dL [facility] EGFR 89 >59 mL/min/1.7 3m2 [facility] Comment:If patient is black, multiply result by 1.159. Estimated glomerular filtration rate calculated using the CKD-EPI equation. 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 documented in this encounter Additional Health Concerns Infection Onset Date Last Indicated Resolved Time MDR-GN Comment:Infection Loaded by the Load Infection Utility 02/09/2017 02/09/2017 05/19/2023 1:22 AM E DT documented as of this encounter Care Teams Social Service Coordinator Relationship Specialty Start Date End Date Katja Harvey MD [address] [place] [address] [email or web address] PCP - General Internal Medicine 08/28/17 Bahman Goldberg MD [address] [place] [address] [email or web address] Historical LMR Provider 08/13/17 Katja Harvey MD [address] [place] [address] [email or web address] Historical LMR Provider 08/13/17 Kody Hopson MD [address] [place] [address] [email or web address] Historical LMR Provider 08/13/17 Rashad Merritt MD [email or web address] Historical LMR Provider 08/13/17 Kody Locke DO [address] [place] [address] [email or web address] Historical LMR Provider 08/13/17 10/30/21 Nathan Arellano MD [address] [place] [address] [email or web address] Historical LMR Provider 08/13/17 10/30/21 Jung Mitchell MD [address] [place] [address] [email or web address] Historical LMR Provider 08/13/17 10/30/21 [place] [address] [email or web address] Historical LMR Provider 08/13/17 10/30/21 Jazz Galvez MD [address] [place] [phone] Historical LMR Provider 08/13/17 2 documented as of this encounter Additional Source Comments The information contained in this document represents components of the legal health record. It is not the complete legal health record.[facility]
--- OUTSIDE RECORDS SUMMARY | 2025-07-22 16:53 | XMS_ITS | Encounter Summary ---
Author Organization [facility] Address [facility] [employer] [facility] [address] [place] [address] Phone Care Team Providers Care Commercial Singer Name Role Phone AlarelyBahman MD Unavailable [phone] Katja Harvey MD Unavailable Kody Hopson MD Unavailable Rashad Merritt MD Unavailable [email or web address] Kody Locke DO Unavailable Nathan Arellano MD Unavailable [phone] Jung Mitchell MD Unavailable Mer Varela MD Unavailable Jazz Galvez MD Unavailable [phone] Katja Harvey MD Primary Care Provider Encounter Details Date Type Department Care Team (Latest Contact Info) Description 01/05/2018 Transcribe Orders [facility] [address] [place] [address] Jacklyn Galicia PA [address] [place] [id number] [email or web address] Arthralgia, unspecified joint (Primary Dx) Social History Tobacco Use Types Packs/Day Years Used Date Smoking Tobacco: Never Assessed Comments Unknown Sex and Gender Information Value Date Recorded Sex Assigned at Not on file Legal Sex Female 10:11 PM EDT Gender Identity Not on file Sexual Orientation Straight 08/02/2021 12 :44 PM EDT documented as of this encounter Plan of Treatment Upcoming Encounters Date Type Department Care Team (Late st Contact Info) Description 05/08/2025 Procedure Pass Echo Lab [address] [place] [address] 07/11/2025 Procedure Pass [address] [address] 08/01/2025 1:45 PM EDT Appointment [address] [address] Katja Harvey MD [address] [place] [address] 08/07/2025 10:30 AM EDT Office Visit [facility] [address] [place] [address], [address] [address] Heidy Julio PA-C [address] [place] [address] 10/08/2025 1:30 PM EST Appointment Echo Lab [address] [place] [address] Justo Mendez MD [address] [place] [address], [address] [address] 11/12/2025 10:00 AM EST Office Visit [facility] [address] [place] [address], [address] [address] Justo Mendez MD [address] [place] [address], [address] [address] 01/23/2026 12:00 PM EDT Office Visit [facility] [address] [place] [address], [address] [address] Juanpablo Palma MD, [place] 22 [facility], [address] [address] [email or web address] documented as of this encounter Results * Sedimentation rate (ESR) (01/05/2018 10:48 AM EDT) ESR 14 0 - 30 mm/h [facility] Blood 01/05/2018 10:4 8 AM EDT 01/05/2018 11:12 AM EDT us Jacklyn Tipzuume PA LAB BLOOD ORDERABLES Final Resu lt Performing Organization Address [facility]/ZIP Co de Phone Number [address] [address] * Lyme screen with reflex to Western blot, blood (01/05/2018 10:48 AM EDT) Pathologist [facility] Lyme AB IgG Negative Negative [facility] Lyme AB IgM Negative Negative [facility] Blood 01/05/2018 10:4 8 AM EDT 01/05/2018 11:12 AM EDT us thrdPlace PA LAB BLOOD ORDERABLES Final Resu lt Performing Organization Address [facility]/ZIP Co de Phone Number [address] [address] * C-Reactive Protein (01/05/2018 10:48 AM EDT) C REACTIVE PROTEIN 0.5 0 - 0.5 mg/L [facility] Blood 01/05/2018 10:4 8 AM EDT 01/05/2018 11:12 AM EDT us Jacklyn Blume PA LAB BLOOD ORDERABLES Final Resu lt Performing Organization Address [facility]/ZIP Co de Phone Number [address] [address] * TSH with reflex (01/05/2018 10:48 AM EDT) TSH 1.77 0.27 - 4.20 uIU/mL [facility] Blood 01/05/2018 10:4 8 AM EDT 01/05/2018 11:12 AM EDT Jacklyn CASTRO LAB BLOOD ORDERABLES Final Resu lt Performing Organization Address City/[facility]/ZIP Co de Phone Number [address] [address] * (ABNORMAL) Basic metabolic panel (01/05/2018 10:48 AM EDT) SODIUM 144 133 - 146 mmol/L [facility] CHLORIDE 105 96 - 108 mmol/L [facility] POTASSIUM 4.3 3.3 - 5.1 mmol/L [facility] CO2 30 21 - 35 mmol/L [facility] BUN 22(H) 6 - 19 mg/dL [facility] CREATININE <0.50(L) 0.5 - 1.5 mg/dL [facility] GLUCOSE 83 70 - 99 mg/dL [facility] CALCIUM 9.3 8.4 - 10.3 mg/dL [facility] EGFR Not Done >59 mL/min/1.73 m2 [facility] ANION GAP 13 10 - 20 mmol/L [facility] Blood 01/05/2018 10:4 8 AM EDT 01/05/2018 11:12 AM EDT Jacklyn CASTRO LAB BLOOD ORDERABLES Final Resu lt Performing Organization Address City/[facility]/ZIP Co de Phone Number [address] [address] documented in this encounter Visit Diagnoses Diagnosis Arthralgia, unspecified joint- Primary documented in this encounter Additional Health Concerns Infection Onset Date Last Indicated Resolved Time MDR-GN Comment:Infection Loaded by the Load Infection Utility 02/09/2017 02/09/2017 05/19/2023 1:22 AM E DT documented as of this encounter Care Teams Commercial Singer Relationship Specialty Start Date End Date Katja Harvey MD [address] [place] [address] [email or web address] PCP - General Internal Medicine 08/28/17 Bahman Goldberg MD [address] [place] [address] [email or web address] Historical LMR Provider 08/13/17 Katja Harvey MD [address] [place] [address] [email or web address] Historical LMR Provider 08/13/17 Kody Hopson MD [address] [place] [address] [email or web address] Historical LMR Provider 08/13/17 Rashad Merritt MD [email or web address] Historical LMR Provider 08/13/17 Kody Locke DO [address] [place] [address] [email or web address] Historical LMR Provider 08/13/17 10/30/21 Nathan Arellano MD [address] [place] [address] [email or web address] Historical LMR Provider 08/13/17 10/30/21 Jung Mitchell MD [address] [place] [address] [email or web address] Historical LMR Provider 08/13/17 10/30/21 [place] [address] [email or web address] Historical LMR Provider 08/13/17 10/30/21 Jazz Galvez MD [address] [place] [phone] Historical LMR Provider 08/13/17 2 documented as of this encounter Additional Source Comments The information contained in this document represents components of the legal health record. It is not the complete legal health record.[facility]
--- OUTSIDE RECORDS SUMMARY | 2025-07-22 16:53 | XMS_ITS | Encounter Summary ---
Author Organization [facility] Address [address] [facility] [address] [place] [address] Phone Care Team Providers Care Emergency Department Physician Name Role Phone Bahman Goldberg MD Unavailable [phone] Katja Harvey MD Unavailable Kody Hopson MD Unavailable Rashad Merritt MD Unavailable [email or web address] Katja Harvey MD Primary Care Provider [phone] Encounter Details Date Type Department Care Team (Late st Contact Info) Description 04/15/2022 Procedure Pass Echo Lab [address] [place] [address] Social History Tobacco Use Types Packs/Day Years [...] Info) Description 05/08/2025 Procedure Pass Echo Lab [address] [place] [address] 07/11/2025 Procedure Pass [address] [address] 08/01/2025 1:45 PM EDT Appointment [address] [address] Katja Harvey MD [address] [place] [address] 08/07/2025 10:30 AM EDT Office Visit [facility] [address] [facility], [address] [address] Heidy Julio PA-C [address] [place] [address] 10/08/2025 1:30 PM EST Appointment Echo [facility] [place] [address] [place] [address] Justo Mendez MD [address] [place] [address] 11/12/2025 10:00 AM EST Office Visit [facility] [address] [facility], [address] [address] Justo Mendez MD [address] [place] [address] 01/23/2026 12:00 PM EDT Office Visit [facility] [address] [facility], [address] [address] Juanpablo Palma MD, MS [address] [place] [address], [address] [address] [email or web address] documented as of this encounter Visit Diagnoses Not on filedocumented in this encounter Additional Health Concerns Infection Onset Date Last Indicated Resolved Time MDR-GN Comment:Infection Loaded by the Load Infection Utility 02/09/2017 02/09/2017 05/19/2023 1:22 AM E DT documented as of this encounter Care Teams Emergency Department Physician Relationship Specialty Start Date End Date Katja Harvey MD [address] [place] [address] [email or web address] PCP - General Internal Medicine 08/28/17 Bahman Goldberg MD [address] [place] [address] [email or web address] Historical LMR Provider 08/13/17 Katja Harvey MD [address] [place] [address] [email or web address] Historical LMR Provider 08/13/17 Kody Hopson MD 15 [place] [address] [email or web address] Historical LMR Provider 08/13/17 Rashad Merritt MD [email or web address] Historical LMR Provider 08/13/17 documented as of this encounter Additional Source Comments The information contained in this document represents components of the legal health record. It is not the complete legal health record.[facility]
--- OUTSIDE RECORDS SUMMARY | 2025-07-22 16:53 | XMS_ITS | Encounter Summary ---
Author Organization [facility] Address [address] [facility] [address] [place] [address] Phone Care Team Providers Care Snowsport Instructor Name Role Phone Bahman Goldberg MD Unavailable [phone] Katja Harvey MD Unavailable Kody Hopson MD Unavailable Rashad Merritt MD Unavailable [email or web address] Katja Harvey MD Primary Care Provider Encounter Details Date Type Department Care Team (Late st Contact Info) Description 11/17/2022 Transcribe Orders Virtual Department [address] [place] [address] Katja Harvey MD [address] [place] [address] [email or web address] Right hip pain (Primary Dx) Social History Tobacco Use Types [...] Info) Description 05/08/2025 Procedure Pass Echo Lab [address] [place] [address] 07/11/2025 Procedure Pass [address] [address] 08/01/2025 1:45 PM EDT Appointment [address] [address] Katja Harvey MD [address] [place] [address] 08/07/2025 10:30 AM EDT Office Visit [facility] [address] [place] [address], [address] [address] Heidy Julio PA-C [address] [place] [address] 10/08/2025 1:30 PM EST Appointment Echo Lab [address] [place] [address] Justo Mendez MD [address] [place] [address] 11/12/2025 10:00 AM EST Office Visit [address] 3[address] [facility], [address] [address] Justo Mendez MD [address] [place] [address] 01/23/2026 12:00 PM EDT Office Visit [address], [address] [place] [address] Juanpablo Palma MD, [place] 22 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 Narrative 11/19/2022 10:41 PM EST XR HIP 2 VW RIGHT PLUS PELVIS COMPARISON: None FINDINGS: PELVIS: Pelvic ring intact. No displaced fracture. Degenerative changes of lower lumbar spine, sacroiliac joints, and pubic symphysis. Constipation. RIGHT HIP: Moderate hip joint space narrowing, particularly medially and posteriorly. LEFT HIP: Mild hip joint space narrowing. Procedure Note Jesse Smith MD - 11/19/2022 XR HIP 2 VW RIGHT PLUS PELVIS COMPARISON: None FINDINGS: PELVIS: Pelvic ring intact. No displaced fracture. Degenerative changes oflower lumbar spine, sacroiliac joints, and pubic symphysis.Constipation. RIGHT HIP: Moderate hip joint space narrowing, particularly medially andposteriorly. LEFT HIP: Mild hip joint space narrowing. IMPRESSION: Moderate right hip osteoarthritis, particularly medially andposteriorly. Mild left hip osteoarthritis. Katja Harvey MD IMG XR PELVIS Final Resul t documented in this encounter Visit Diagnoses Diagnosis Right hip pain- Primary Pain in joint, pelvic region and thigh Right hip pain Pain in joint, pelvic region and thigh documented in this encounter Additional Health Concerns Infection Onset Date Last Indicated Resolved Time MDR-GN Comment:Infection Loaded by the Load Infection Utility 02/09/2017 02/09/2017 05/19/2023 1:22 AM E DT documented as of this encounter Care Teams Snowsport Instructor Relationship Specialty Start Date End Date Katja Harvey MD [address] [place] [address] [email or web address] PCP - General Internal Medicine 08/28/17 Bahman Goldberg MD [address] [place] [address] [email or web address] Historical LMR Provider 08/13/17 Katja Harvey MD [address] [place] [address] [email or web address] Historical LMR Provider 08/13/17 Kody Hopson MD [address] [place] [address] [email or web address] Historical LMR Provider 08/13/17 Rashad Merritt MD [email or web address] Historical LMR Provider 08/13/17 documented as of this encounter Additional Source Comments The information contained in this document represents components of the legal health record. It is not the complete legal health record.[facility]
--- OUTSIDE RECORDS SUMMARY | 2025-07-22 16:53 | XMS_ITS | Encounter Summary ---
Author Organization [facility] Address Formerly [facility], 1928–1983 [employer] [facility] [address] [place] [address] Phone Care Team Providers Care Merchandising Representative Name Role Phone AlarelyBahman MD Unavailable [phone] Katja Harvey MD Unavailable Kody Hopson MD Unavailable Rashad Merritt MD Unavailable [email or web address] Kody Locke DO Unavailable Nathan Arellano MD Unavailable [phone] Jung Mitchell MD Unavailable Mer Varela MD Unavailable Jazz Galvez MD Unavailable [phone] Katja Harvey MD Primary Care Provider Encounter Details Date Type Department Care Team (Late st Contact Info) Description 01/04/2018 Ancillary Orders [facility], [facility] [address] [place] [address] Jacklyn Galicia PA [address] CRISTIANA BEDOLLA [address] [email or web address] Left wrist pain Social History Tobacco Use Types Packs/Day [...] Info) Description 05/08/2025 Procedure Pass [facility] [address] [place] [address] 07/11/2025 Procedure Pass [address] [address] 08/01/2025 1:45 PM EDT Appointment [address] [address] Katja Harvey MD [address] [place] [address] 08/07/2025 10:30 AM EDT Office Visit [facility] [address] [place] [address], [address] [address] Heidy Julio PA-C [address] [place] [address] 10/08/2025 1:30 PM EST Appointment Echo [facility] [address] [place] [address] Justo Mendez MD [address] [place] [address], [address] [address] 11/12/2025 10:00 AM EST Office Visit [facility] [address] 3rd [facility], [address] [address] Justo Mendez MD [address] [place] [address], [address] [address] 01/23/2026 12:00 PM EDT Office Visit [facility] [address] 3rd Floor, [address] [address] Juanpablo Palma MD, MS 22 [facility], [address] [place] [address] [email or web address] documented as of this encounter Results * XR WRIST 3 OR MORE VIEWS (LEFT) (01/04/2018 12:18 PM EDT) Anatomical Region Laterality Modality Wrist Left Radiographic Yumiko ging 01/04/2018 12:3 0 PM EDT Impressions 01/04/2018 12:34 PM EDT 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 No other significant bony pathology. POS [email or web address] Edited by: Joanne Dela Cruz on 01/04/2018 12:34 PM Narrative 01/04/2018 12:34 PM EDT Three views. No comparison. No fracture, dislocation or static instability pattern. No evidence of tumor, infection or osteonecrosis. Small subchondral cyst in the distal capitate consistent with early osteoarthritis. No other arthritic changes. Procedure Note Jay Jolley MD - 01/04/2018 Three views. No comparison. No fracture, dislocation or static instability pattern. No evidence of tumor, infection or osteonecrosis. Small subchondral cyst in the distal capitate consistent with earlyosteoarthritis. No other arthritic changes. 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 No othersignificant bony pathology. POS [email or web address] Edited by: Joanne Dela Cruz on 01/04/2018 12:34 PM Jacklyn CASTRO IMG XR UPPER EXTREMITY Final Re sult documented in this encounter Visit Diagnoses Diagnosis Left wrist pain Pain in joint, forearm Left wrist pain Pain in joint, forearm documented in this encounter Additional Health Concerns Infection Onset Date Last Indicated Resolved Time MDR-GN Comment:Infection Loaded by the Load Infection Utility 02/09/2017 02/09/2017 05/19/2023 1:22 AM E DT documented as of this encounter Care Teams Merchandising Representative Relationship Specialty Start Date End Date Katja Harvey MD [address] [place] [address] [email or web address] PCP - General Internal Medicine 08/28/17 Bahman Goldberg MD [address] [place] [address] [email or web address] Historical LMR Provider 08/13/17 Katja Harvey MD [address] [place] [address] [email or web address] Historical LMR Provider 08/13/17 Kody Hopson MD [address] [place] [address] [email or web address] Historical LMR Provider 08/13/17 Rashad Merritt MD [email or web address] Historical LMR Provider 08/13/17 Kody Locke DO [address] [place] [address] [email or web address] Historical LMR Provider 08/13/17 10/30/21 Nathan Arellano MD [address] [place] [address] [email or web address] Historical LMR Provider 08/13/17 10/30/21 Jung Mitchell MD [address] [place] [address] [email or web address] Historical LMR Provider 08/13/17 10/30/21 [place] [address] [email or web address] Historical LMR Provider 08/13/17 10/30/21 Jazz Galvez MD [address] [place] [phone] Historical LMR Provider 08/13/17 2 documented as of this encounter Additional Source Comments The information contained in this document represents components of the legal health record. It is not the complete legal health record.[facility]
--- OUTSIDE RECORDS SUMMARY | 2025-07-22 16:53 | XMS_ITS | Encounter Summary ---
Author Organization [facility] Address [address] [place] [address] Phone Care Team Providers Care Data Analyst Etl Developer Name Role Phone Bahman Goldberg MD Unavailable [phone] Katja Harvey MD Unavailable Unknown, Unknown Primary Care Provider GabiwaKody Narayan MD Unavailable Rashad Merritt MD Unavailable [email or web address] Kody Locke DO Unavailable Nathan Arellano MD Unavailable [phone] Jung Mitchell MD Unavailable Mer Varela MD Unavailable Jazz Galvez MD Unavailable [phone] Katja Harvey MD Primary Care Provider Encounter Details Date Type Department Care Team (Latest Contact Info) Description 08/12/2017 Ancillary [facility] [address] [place] [address] Kody Hopson MD [address] [place] [address] [place] [address] [email or web address] Diagnosis unknown Social History Tobacco Use Types Packs/Day Years [...] Info) Description 05/08/2025 Procedure Pass Echo Lab [address] [place] [address] 07/11/2025 Procedure Pass [address] [address] 08/01/2025 1:45 PM EDT Appointment [address] [address] Katja Harvey MD [address] [place] [address] 08/07/2025 10:30 AM EDT Office Visit [facility] [address] [place] [address], [address] [address] Heidy Julio PA-C [address] [place] [address] 10/08/2025 1:30 PM EST Appointment Echo Lab [address] [place] [address] Justo Mendez MD [address] [place] [address] 11/12/2025 10:00 AM EST Office Visit [facility] [address] 3rd [facility], [address] [address] Justo Mendez MD [address] [place] [address], [address] [address] 01/23/2026 12:00 PM EDT Office Visit [facility] [address] [place] [address] 3rd Floor, [address] [place] [address] Juanpablo Palma MD, MS 22 [facility], [address] [address] [email or web address] documented as of this encounter Visit Diagnoses Diagnosis Diagnosis unknown documented in this encounter Additional Health Concerns Infection Onset Date Last Indicated Resolved Time MDR-GN Comment:Infection Loaded by the Load Infection Utility 02/09/2017 02/09/2017 05/19/2023 1:22 AM E DT documented as of this encounter Care Teams Data Analyst Etl Developer Relationship Specialty Start Date End Date Unknown, Unknown, [address] [place] [address] PCP - General 08/12/17 08/27/17 Katja Harvey MD [address] [place] [address] [email or web address] PCP - General Internal Medicine 08/28/17 Bahman Goldberg MD [address] [place] [address] [email or web address] Historical LMR Provider 08/13/17 Katja Harvey MD [address] [place] [address] [email or web address] Historical LMR Provider 08/13/17 Kody Hopson MD [address] [place] [address] [email or web address] Historical LMR Provider 08/13/17 Rashad Merritt MD [email or web address] Historical LMR Provider 08/13/17 Kody Locke DO [address] [place] [address] [email or web address] Historical LMR Provider 08/13/17 10/30/21 Nathan Arellano MD [address] [place] [address], [address] [place] [address] Historical LMR Provider 08/13/17 10/30/21 Jung Mitchell MD [address] [place] [address], [address] [place] [address] [email or web address] Historical LMR Provider 08/13/17 10/30/21 [place] [address] [email or web address] Historical LMR Provider 08/13/17 10/30/21 Jazz Galvez MD [address] [place] [phone] Historical LMR Provider 08/13/17 2 documented as of this encounter Additional Source Comments The information contained in this document represents components of the legal health record. It is not the complete legal health record.[facility]
--- OUTSIDE RECORDS SUMMARY | 2025-07-22 16:53 | XMS_ITS | Encounter Summary ---
Author Organization [facility] Address [address] [employer] [facility] [address] [place] [address] Phone Care Team Providers Care Cigar Making Supervisor Name Role Phone Bahman Goldberg MD Unavailable [phone] Katja Harvey MD Unavailable [phone] Kody Hopson MD Unavailable Rashad Merritt MD Unavailable [email or web address] Kody Locke DO Unavailable Nathan Arellano MD Unavailable [phone] Jung Mitchell MD Unavailable Mer Varela MD Unavailable Jazz Galvez MD Unavailable [phone] Katja Harvey MD Primary Care Provider Encounter Details Date Type Department Care Team (Late st Contact Info) Description 03/22/2019 Transcribe Orders Virtual Department [address] [place] [address] Katja Harvey MD [address] [place] [phone] [email or web address] Chronic pain in left foot (Primary Dx) Social History Tobacco Use Types [...] Info) Description 05/08/2025 Procedure Pass Echo Lab [address] [place] [address] 07/11/2025 Procedure Pass [address] [address] 08/01/2025 1:45 PM EDT Appointment [address] [address] Katja Harvey MD [address] [place] [address] 08/07/2025 10:30 AM EDT Office Visit [facility] [address] [place] [address], [address] [address] Heidy Julio PA-C [address] [place] [address] 10/08/2025 1:30 PM EST Appointment Echo [facility] [address] [place] [address] Justo Mendez MD [address] [place] [address] 11/12/2025 10:00 AM EST Office Visit [facility] [address] [place] [address], [address] [address] Justo Mendez MD [address] [place] [address] 01/23/2026 12:00 PM EDT Office Visit [facility] 22 [facility] 3rd Floor, [address] [place] [address] Juanpablo Palma MD, MS 22 [facility], [address] [place] [address] [email or web address] documented as of this encounter Results * XR FOOT 3 OR MORE VIEWS (LEFT) (03/27/2019 11:11 AM EDT) Anatomical Region Laterality Modality Foot Left Radiographic Yumiko ging 03/27/2019 12:2 6 PM EDT Impressions 03/27/2019 12:31 PM EDT Tiny plantar calcaneal spurring. No acute fracture or destructive bone lesions. POS - [id number] Narrative 03/27/2019 12:31 PM EDT EXAM: XR FOOT 3 OR MORE VIEWS (LEFT) COMPARISON: None FINDINGS: Intact screws present in the distal aspect of the 1st metatarsal and along the 1st proximal phalanx. Healed postsurgical changes of the 1st metatarsal head. 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 No acute fracture or destructive bone lesion. Tiny plantar calcaneal spurring. Anatomic alignment is maintained. Overlying soft tissues are grossly unremarkable. Procedure Note Tracie Hoyt MD - 03/27/2019 EXAM: XR FOOT 3 OR MORE VIEWS (LEFT) COMPARISON: None FINDINGS: Intact screws present in the distal aspect of the 1st metatarsaland along the 1st proximal phalanx. Healed postsurgical changes of the 1stmetatarsal head. Status post amputation of the proximal aspect of the 2ndproximal phalanx. No acute fracture or destructive bone lesion. Tinyplantar calcaneal spurring. Anatomic alignment is maintained. Overlyingsoft tissues are grossly unremarkable. IMPRESSION: Tiny plantar calcaneal spurring. No acute fracture or destructive bonelesions. POS - [email or web address] Katja Harvey MD IMG XR LOWER EXTREMITY Mikaela l Result documented in this encounter Visit Diagnoses Diagnosis Chronic pain in left foot- Primary Chronic pain in left foot documented in this encounter Additional Health Concerns Infection Onset Date Last Indicated Resolved Time MDR-GN Comment:Infection Loaded by the Load Infection Utility 02/09/2017 02/09/2017 05/19/2023 1:22 AM E DT documented as of this encounter Care Teams Cigar Making Supervisor Relationship Specialty Start Date End Date Katja Harvey MD [address] [place] [address] [email or web address] PCP - General Internal Medicine 08/28/17 Bahman Goldberg MD [address] [place] [address] [email or web address] Historical LMR Provider 08/13/17 Katja Harvey MD [address] [place] [address] [email or web address] Historical LMR Provider 08/13/17 Kody Hopson MD [address] [place] [address] [email or web address] Historical LMR Provider 08/13/17 Rashad Merritt MD [email or web address] Historical LMR Provider 08/13/17 Kody Locke DO [address] [place] [address] [email or web address] Historical LMR Provider 08/13/17 10/30/21 Nathan Arellano MD [facility], [facility] [address] [place] [address] [email or web address] Historical LMR Provider 08/13/17 10/30/21 Jung Mitchell MD [address] [place] [address], [facility] [address] [place] [address] [email or web address] Historical LMR Provider 08/13/17 10/30/21 [place] [address] [email or web address] Historical LMR Provider 08/13/17 10/30/21 Jazz Galvez MD [address] [place] [phone] Historical LMR Provider 08/13/17 2 documented as of this encounter Additional Source Comments The information contained in this document represents components of the legal health record. It is not the complete legal health record.[facility]
--- OUTSIDE RECORDS SUMMARY | 2025-07-22 16:53 | XMS_ITS | Encounter Summary ---
Author Organization [facility] Address [address] [employer] [facility] [address] [place] [address] Phone Care Team Providers Care Paper Stripper Name Role Phone Bahman Goldberg MD Unavailable [phone] Katja Harvey MD Unavailable Kody Hopson MD Unavailable Rashad Merritt MD Unavailable [email or web address] Kody Locke DO Unavailable Nathan Arellano MD Unavailable [phone] Jung Mitchell MD Unavailable [phone] Mer Varela MD Unavailable Jazz Galvez MD Unavailable [phone] Katja Harvey MD Primary Care Provider Encounter Details Date Type Department Care Team (Late st Contact Info) Description 03/28/2019 Transcribe Orders [facility] [address] [place] [address] Katja Harvey MD [address] [place] [address] [phone] [email or web address] High glucose (Primary Dx); Bone disease Social History Tobacco Use Types Packs/Day Years [...] Info) Description 05/08/2025 Procedure Pass Echo Lab [address] [place] [address] 07/11/2025 Procedure Pass [address] [address] 08/01/2025 1:45 PM EDT Appointment [address] [address] Katja Harvey MD [address] [place] [address] 08/07/2025 10:30 AM EDT Office Visit [facility] [address] [place] [address], [address] [address] Heidy Julio PA-C [address] [place] [address] 10/08/2025 1:30 PM EST Appointment Echo Lab [address] [place] [address] Justo Mendez MD [address] [place] [address] 11/12/2025 10:00 AM EST Office Visit [facility] [address] [place] [address], [address] [address] Justo Mendez MD [address] [place] [address] 01/23/2026 12:00 PM EDT Office Visit [facility] 22 [facility] 3rd Floor, [address] [place] [address] Juanpablo Palma MD, MS 22 [facility], [address] [place] [address] [email or web address] documented as of this encounter Results * (ABNORMAL) 25-OH vitamin D (03/28/2019 9:02 AM EDT) Pathologist [facility] 25 [place] VIT D (TOTAL) 29(L) 30 - 60 ng/mL [facility] Blood 03/28/2019 9:02 AM EDT 03/28/2019 11:23 AM EDT Katja Harvey MD LAB BLOOD ORDERABLES Final Result [address] [address] * Hemoglobin A1c (03/28/2019 9:02 AM EDT) Pathologist [facility] HEMOGLOBIN A1C 5.5 4.3 - 5.8 % [facility] Blood 03/28/2019 9:02 AM EDT 03/28/2019 11:23 AM EDT Katja Harvey MD LAB BLOOD ORDERABLES Final Result [address] [address] * CBC (03/28/2019 9:02 AM EDT) Pathologist [facility] WBC 4.95 3.40 - 11.20 K/uL [facility] RBC 4.25 3.80 - 4.80 M/uL [facility] HGB 13.1 12.0 - 15.0 g/dL [facility] HCT 40.3 36.0 - 46.0 % [facility] PLT 262 130 - 400 K/uL [facility] MCV 94.8 79.0 - 98.0 fL [facility] MCH 30.8 27.0 - 34.8 pg [facility] MCHC 32.5 31.5 - 36.0 g/dL [facility] RDW 13.9 10.8 - 14.6 % [facility] MPV 11.4 9.4 - 12.4 [facility] NRBC 0.00 0.00 /100 WBCs [facility] ABSOLUTE NRBC 0.00 0.00 K/uL [facility] Blood 03/28/2019 9:02 AM EDT 03/28/2019 11:23 AM EDT Katja Harvey MD LAB BLOOD ORDERABLES Final Result Performing Organization Address City/State/[facility] Co de Phone Number [address] [address] * (ABNORMAL) Lipid panel (03/28/2019 9:02 AM EDT) HDL 74 mg/dL [facility] Comment: Interpretation <40 mg/dL: Low HDL cholesterol (major risk factor for CHD) Greater than or equal to 60 mg/dL: High HDL cholesterol ( negative risk factor for CHD) HDL - cholesterol is affected by a number of factors, e.g. smoking, excerise, hormones, sex and age. CHOLESTEROL 205 0 - 240 mg/dL [facility] TRIGLYCERIDES 67 30 - 160 mg/dL [facility] LDL 118 50 - 129 mg/dL [facility] Comment: LDL levels in terms of risk for coronary heart disease: <100 mg/dL: Optimal 100-129 mg/dL: Near or above optimal 130-159 mg/dL: Borderline high 160-189 mg/dL: High >190 mg/dL: Very High CARDIAC RISK RATIO 2.8(L) 3.3 - 4.4 C [facility] Blood 03/28/2019 9:02 AM EDT 03/28/2019 11:23 AM EDT Katja Harvey MD LAB BLOOD ORDERABLES Final Result [address] [address] * (ABNORMAL) Comprehensive metabolic panel (03/28/2019 9:02 AM EDT) SODIUM 140 133 - 146 mmol/L [facility] POTASSIUM 4.9 3.3 - 5.1 mmol/L [facility] CHLORIDE 102 96 - 108 mmol/L [facility] CO2 28 21 - 35 mmol/L [facility] BUN 24(H) 6 - 19 mg/dL [facility] CREATININE 0.70 0.5 - 1.5 mg/dL [facility] GLUCOSE 101(H) 70 - 99 mg/dL [facility] ALBUMIN 3.8(L) 3.9 - 4.8 g/dL [facility] TOTAL PROTEIN 7.4 6.5 - 8.0 g/dL [facility] CALCIUM 9.4 8.4 - 10.3 mg/dL [facility] ALKALINE PHOSPHATASE 80 39 - 117 U/L [facility] TOTAL BILIRUBIN 0.5 0.0 - 1.2 mg/dL [facility] AST 25 0 - 37 U/L [facility] ALT 12 0 - 40 U/L [facility] GLOBULIN 3.6 1 - 4.8 g/dL [facility] EGFR 84 >59 mL/min/1.7 3m2 [facility] Comment:If patient is black, multiply result by 1.159. Estimated glomerular filtration rate calculated using the CKD-EPI equation. 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, unspecified documented in this encounter Additional Health Concerns Infection Onset Date Last Indicated Resolved Time MDR-GN Comment:Infection Loaded by the Load Infection Utility 02/09/2017 02/09/2017 05/19/2023 1:22 AM E DT documented as of this encounter Care Teams Paper Stripper Relationship Specialty Start Date End Date Katja Harvey MD [address] [place] [address] [email or web address] PCP - General Internal Medicine 08/28/17 Bahman Goldberg MD [address] [place] [address] [email or web address] Historical LMR Provider 08/13/17 Katja Harvey MD [address] [place] [address] [email or web address] Historical LMR Provider 08/13/17 Kody Hopson MD [address] [place] [address] [email or web address] Historical LMR Provider 08/13/17 Rashad Merritt MD [email or web address] Historical LMR Provider 08/13/17 Kody Locke DO [address] [place] [address] [email or web address] Historical LMR Provider 08/13/17 10/30/21 Nathan Arellano MD [address] [place] [address], [address] [address] Historical LMR Provider 08/13/17 10/30/21 Jung Mitchell MD [facility], [address] [place] [address] [email or web address] Historical LMR Provider 08/13/17 10/30/21 [place] [address] [email or web address] Historical LMR Provider 08/13/17 10/30/21 Jazz Galvez MD [address] [place] [phone] Historical LMR Provider 08/13/17 2 documented as of this encounter Additional Source Comments The information contained in this document represents components of the legal health record. It is not the complete legal health record.[facility]
--- OUTSIDE RECORDS SUMMARY | 2025-07-22 16:53 | XMS_ITS | Encounter Summary ---
Author Organization [facility] Address [address] [facility] [address] [place] [address] Phone Care Team Providers Care Rn Recovery Name Role Phone Bahman Goldberg MD Unavailable [phone] Katja Harvey MD Unavailable Kody Hopson MD Unavailable Rashad Merritt MD Unavailable [email or web address] Kody Locke DO Unavailable Nathan Arellano MD Unavailable [phone] Jung Mitchell MD Unavailable Mer Varela MD Unavailable Jazz Galvez MD Unavailable [phone] Katja Harvey MD Primary Care Provider Encounter Details Date Type Department Care Team (Late st Contact Info) Description 07/01/2021 Procedure Pass [facility] [address] [place] [address] Social History Tobacco Use Types Packs/Day Years [...] Info) Description 05/08/2025 Procedure Pass Echo Lab [address] [place] [address] 07/11/2025 Procedure Pass [address] [address] 08/01/2025 1:45 PM EDT Appointment [address] [address] Katja Harvey MD [address] [place] [address] 08/07/2025 10:30 AM EDT Office Visit [facility] [address] [place] [address], [address] [address] Heidy Julio PA-C [address] [place] [address] 10/08/2025 1:30 PM EST Appointment Echo Lab [place] [address] [place] [address] Justo Mendez MD [address] [place] [address], [address] [address] 11/12/2025 10:00 AM EST Office Visit [facility] [address] [place] [address], [address] [address] Justo Mendez MD [address] [place] [address], [address] [address] [email or web address] 01/23/2026 12:00 PM EDT Office Visit [facility] [address] [facility] 3rd Floor, [address] [place] [address] Juanpablo Palma MD, MS 22 [facility], [address] [place], [place] [phone] [email or web address] documented as of this encounter Visit Diagnoses Not on filedocumented in this encounter Additional Health Concerns Infection Onset Date Last Indicated Resolved Time MDR-GN Comment:Infection Loaded by the Load Infection Utility 02/09/2017 02/09/2017 05/19/2023 1:22 AM E DT documented as of this encounter Care Teams Rn Recovery Relationship Specialty Start Date End Date Katja Harvey MD 15 [place] [address] [email or web address] PCP - General Internal Medicine 08/28/17 Bahman Goldberg MD [address] [place] [address] [email or web address] Historical LMR Provider 08/13/17 Katja Harvey MD 15 [place] [address] [email or web address] Historical LMR Provider 08/13/17 Kody Hopson MD 15 [place] [address] [email or web address] Historical LMR Provider 08/13/17 Rashad Merritt MD [email or web address] Historical LMR Provider 08/13/17 Kody Locke DO [address] [place] [address] [email or web address] Historical LMR Provider 08/13/17 10/30/21 Nathan Arellano MD [address] [place] [address] [email or web address] Historical LMR Provider 08/13/17 10/30/21 Jung Mitchell MD [address] [place] [address], [address] [address] [email or web address] Historical LMR Provider 08/13/17 10/30/21 [place] [address] [email or web address] Historical LMR Provider 08/13/17 10/30/21 Jazz Galvez MD [address] [place] [phone] Historical LMR Provider 08/13/17 2 documented as of this encounter Additional Source Comments The information contained in this document represents components of the legal health record. It is not the complete legal health record.[facility]
--- OUTSIDE RECORDS SUMMARY | 2025-07-22 16:53 | XMS_ITS | Encounter Summary ---
Author Organization [facility] Address [address] [employer] [facility] [address] [place] [address] Phone Care Team Providers Care Correctional Supervisor Name Role Phone Bahman Goldberg MD Unavailable [phone] Katja Harvey MD Unavailable [phone] Kody Hopson MD Unavailable Rashad Merritt MD Unavailable [email or web address] Kody Locke DO Unavailable Nathan Arellano MD Unavailable [phone] Jung Mitchell MD Unavailable [phone] Mer Varela MD Unavailable Jazz Galvez MD Unavailable [phone] Katja Harvey MD Primary Care Provider [phone] Encounter Details Date Type Department Care Team (Late st Contact Info) Description 01/31/2018 Ancillary Orders [facility] External Provider Virtual Department 30 [place] [address] Katja Harvey MD [address] [place] [address] [phone] [email or web address] Breast screening Social History Tobacco Use Types Packs/Day Years Used Date Smoking Tobacco: Former Cigarettes 2 15 0 11/12/1975 - 11/12/1990 Smokeless Tobacco: Never Alcohol Use Standard Drinks/Week Comments Yes 0 (1 standard drink = 0.6 oz pur e alcohol) rare, < 1/month Comments Unknown Sex and Gender Information Value [...] Info) Description 05/08/2025 Procedure Pass Echo Lab [address] [place] [address] 07/11/2025 Procedure Pass [address] [address] 08/01/2025 1:45 PM EDT Appointment [address] [address] Katja Harvey MD [address] [place] [address] 08/07/2025 10:30 AM EDT Office Visit [facility] [address] [place] [address], [address] [address] Heidy Julio PA-C [address] [place] [address] 10/08/2025 1:30 PM EST Appointment Echo Lab [address] [place] [address] Justo Mendez MD [address] [place] [address], [address] [address] 11/12/2025 10:00 AM EST Office Visit [facility] [address] 3rd [facility], [address] [address] Justo Mendez MD [address] [place] [address], [address] [address] [email or web address] 01/23/2026 12:00 PM EDT Office Visit [facility] 22 [facility] 3rd Floor, [address] [place] [address] Juanpablo Palma MD, MS 22 [facility], [address] [place] [address] [email or web address] documented as of this encounter Results * BI MAMMOGRAM SCREENING WITH TOMOSYNTHESIS WITH CAD (BILATERAL) (02/14/2018 2:30 PM EDT) Anatomical Region Laterality Modality Breast Left, Breast Right, Breast Bilateral Bila teral Mammography 02/14/2018 2:50 PM EDT Impressions 02/14/2018 2:57 PM EDT No mammographic evidence of malignancy. Recommend routine annual surveillance. BI-RADS CATEGORY: 2 - Benign finding. DENSITY: There are scattered fibroglandular densities. POS - CDHMAMA Narrative 02/14/2018 2:57 PM EDT 77-year-old female with no current breast symptoms. Comparison made to previous on 01/23/2017 and as far back as 08/29/2011. Interpretation made in conjunction with computer-aided detection and tomosynthesis. There are scattered areas of fibroglandular density. Stable bilateral calcifications and intramammary nodes. There are no suspicious masses, areas of architectural distortion, or suspicious clusters of microcalcifications. Procedure Note Leonardo Miranda MD - 02/14/2018 77-year-old female with no current breast symptoms. Comparison made toprevious on 01/23/2017 and as far back as 08/29/2011. Interpretation madein conjunction with computer-aided detection and tomosynthesis. There are scattered areas of fibroglandular density. Stable bilateralcalcifications and intramammary nodes. There are no suspicious masses, areas of architectural distortion, orsuspicious clusters of microcalcifications. IMPRESSION: No mammographic evidence of malignancy. Recommend routine annualsurveillance. BI-RADS CATEGORY: 2 - Benign finding. DENSITY: There are scattered fibroglandular densities. POS - CDHMAMA Katja Harvey MD IMG MG EXAMS Final Resul t documented in this encounter Visit Diagnoses Diagnosis Breast screening Breast screening, unspecified Breast screening Breast screening, unspecified documented in this encounter Additional Health Concerns Infection Onset Date Last Indicated Resolved Time MDR-GN Comment:Infection Loaded by the Load Infection Utility 02/09/2017 02/09/2017 05/19/2023 1:22 AM E DT documented as of this encounter Care Teams Correctional Supervisor Relationship Specialty Start Date End Date Katja Harvey MD [address] [place] [address] [email or web address] PCP - General Internal Medicine 08/28/17 Bahman Goldberg MD [address] [place] [address] [email or web address] Historical LMR Provider 08/13/17 Katja Harvey MD [address] [place] [address] [email or web address] Historical LMR Provider 08/13/17 Kody Hopson MD [address] [place] [address] [email or web address] Historical LMR Provider 08/13/17 Rashad Merritt MD [email or web address] Historical LMR Provider 08/13/17 Kody Locke DO [address] [place] [address] [email or web address] Historical LMR Provider 08/13/17 10/30/21 Nathan Arellano MD [address] [place] [address], [address] [place] [address] [email or web address] Historical LMR Provider 08/13/17 10/30/21 Jung Mitchell MD [address] [place] [address], [address] [place] [address] [email or web address] Historical LMR Provider 08/13/17 10/30/21 [place] [address] [email or web address] Historical LMR Provider 08/13/17 10/30/21 Jazz Galvez MD [address] [place] [phone] Historical LMR Provider 08/13/17 2 documented as of this encounter Additional Source Comments The information contained in this document represents components of the legal health record. It is not the complete legal health record.[facility]
--- OUTSIDE RECORDS SUMMARY | 2025-07-22 16:53 | XMS_ITS | Encounter Summary ---
Author Organization [facility] Address [address] [facility] [address] [place] [address] Phone Care Team Providers Care Powerhouse Mechanic Helper Name Role Phone Bahman Goldberg MD Unavailable [phone] Katja Harvey MD Unavailable Kody Hopson MD Unavailable Rashad Merritt MD Unavailable [email or web address] Katja Harvey MD Primary Care Provider Encounter Details Date Type Department Care Team (Late st Contact Info) Description 04/13/2023 Procedure Pass Echo Lab [address] [place] [address] Social History Tobacco Use Types Packs/Day Years [...] with a working camera? Not on file Education Answer Date Recorded What is the [...] Info) Description 05/08/2025 Procedure Pass Echo Lab [address] [place] [address] 07/11/2025 Procedure Pass [address] [address] 08/01/2025 1:45 PM EDT Appointment [address] [address] Katja Harvey MD [address] [place] [address] [email or web address] 08/07/2025 10:30 AM EDT Office Visit [address] [place] [address], [address] [address] Heidy Julio PA-C [address] [place] [address] 10/08/2025 1:30 PM EST Appointment Echo Lab [address] [place] [address] Justo Mendez MD [address] [place] [address] 11/12/2025 10:00 AM EST Office Visit [address] [place] [address], [address] [address] Justo Mendez MD [address] [place] [address] [email or web address] 01/23/2026 12:00 PM EDT Office Visit [facility] [address] [place] [address] 3rd Floor, [address] [place] [address] Juanpablo Palma MD, MS [facility], [address] [place] [address] [email or web address] documented as of this encounter Visit Diagnoses Not on filedocumented in this encounter Additional Health Concerns Infection Onset Date Last Indicated Resolved Time MDR-GN Comment:Infection Loaded by the Load Infection Utility 02/09/2017 02/09/2017 05/19/2023 1:22 AM E DT documented as of this encounter Care Teams Powerhouse Mechanic Helper Relationship Specialty Start Date End Date Katja Harvey MD 15 [place] [address] [email or web address] PCP - General Internal Medicine 08/28/17 Bahman Goldberg MD [address] [place] [address] [email or web address] Historical LMR Provider 08/13/17 Katja Harvey MD 15 [place] [address] [email or web address] Historical LMR Provider 08/13/17 Kody Hopson MD 15 [place] [address] [email or web address] Historical LMR Provider 08/13/17 Rashad Merritt MD [email or web address] Historical LMR Provider 08/13/17 documented as of this encounter Additional Source Comments The information contained in this document represents components of the legal health record. It is not the complete legal health record.[facility]
--- OUTSIDE RECORDS SUMMARY | 2025-07-22 16:53 | XMS_ITS | Encounter Summary ---
Author Organization [facility] Address [address] [facility] [address] [place] [address] Phone Care Team Providers Care Sawmill Or Timber Yard Worker Name Role Phone Bahman Goldberg MD Unavailable [phone] Katja Harvey MD Unavailable [phone] Kody Hopson MD Unavailable Rashad Merritt MD Unavailable [email or web address] Kody Locke DO Unavailable Nathan Arellano MD Unavailable [phone] Jung Mitchell MD Unavailable Mer Varela MD Unavailable Jazz Galvez MD Unavailable [phone] Katja Harvey MD Primary Care Provider Encounter Details Date Type Department Care Team (Late st Contact Info) Description 02/17/2021 Procedure Pass [facility] [place] [address] [place], [place] [id number] Social History Tobacco Use Types Packs/Day Years [...] Info) Description 05/08/2025 Procedure Pass Echo Lab [address] [place] [address] 07/11/2025 Procedure Pass [address] [address] 08/01/2025 1:45 PM EDT Appointment [address] [address] Katja Harvey MD [address] [place] [email or web address] 08/07/2025 10:30 AM EDT Office Visit [facility] [address] [place] [address], [address] [address] Heidy Julio PA-C [address] [place] [address] 10/08/2025 1:30 PM EST Appointment Echo Lab [address] [place] [address] Justo Mendez MD [address] [place] [address], [address] [address] 11/12/2025 10:00 AM EST Office Visit [facility] [address] [place] [address], [address] [address] Justo Mendez MD [address] [place] [address], [address] [address] [email or web address] 01/23/2026 12:00 PM EDT Office Visit [facility] 22 [facility] 3rd Floor, [address] [place] [address] Juanpablo Palma MD, MS 22 [facility], [address] [place], [place] [phone] [email or web address] documented as of this encounter Visit Diagnoses Not on filedocumented in this encounter Additional Health Concerns Infection Onset Date Last Indicated Resolved Time MDR-GN Comment:Infection Loaded by the Load Infection Utility 02/09/2017 02/09/2017 05/19/2023 1:22 AM E DT documented as of this encounter Care Teams Sawmill Or Timber Yard Worker Relationship Specialty Start Date End Date Katja Harvey MD 15 [place] [address] [email or web address] PCP - General Internal Medicine 08/28/17 Bahman Goldberg MD [address] [place] [address] [email or web address] Historical LMR Provider 08/13/17 Katja Harvey MD 15 [place] [address] [email or web address] Historical LMR Provider 08/13/17 Kody Hopson MD 15 [place] [address] [email or web address] Historical LMR Provider 08/13/17 Rashad Merritt MD [email or web address] Historical LMR Provider 08/13/17 Kody Locke DO [address] [place] [address] [email or web address] Historical LMR Provider 08/13/17 10/30/21 Nathan Arellano MD [address] [place] [address], [address] [address] Historical LMR Provider 08/13/17 10/30/21 Jung Mitchell MD [address] [place] [address], [address] [address] [email or web address] Historical LMR Provider 08/13/17 10/30/21 [place] [address] [email or web address] Historical LMR Provider 08/13/17 10/30/21 Jazz Galvez MD [address] [place] [phone] Historical LMR Provider 08/13/17 2 documented as of this encounter Additional Source Comments The information contained in this document represents components of the legal health record. It is not the complete legal health record.[facility]
--- OUTSIDE RECORDS SUMMARY | 2025-07-22 16:53 | XMS_ITS | Encounter Summary ---
Author Organization [facility] Address [address] [place] [address] Phone Care Team Providers Care Division Superintendent Name Role Phone Bahman Goldberg MD Unavailable [phone] Katja Harvey MD Unavailable Kody Hopson MD Unavailable Rashad Merritt MD Unavailable [email or web address] Kody Locke DO Unavailable Nathan Arellano MD Unavailable [phone] Jung Mitchell MD Unavailable Mer Varela MD Unavailable Jazz Galvez MD Unavailable [phone] Katja Harvey MD Primary Care Provider Encounter Details Date Type Department Care Team (Latest Contact Info) Description 12/06/2017 Ancillary [facility] [address] [place] [address] Kody Hopson MD [address] [place] [address] [place] [address] [email or web address] Mitral valve insufficiency, unspecified etiology Social History Tobacco Use Types Packs/Day Years [...] Info) Description 05/08/2025 Procedure Pass Echo Lab [address] [place] [address] 07/11/2025 Procedure Pass [address] [address] 08/01/2025 1:45 PM EDT Appointment [address] [address] Katja Harvey MD [address] [place] [address] 08/07/2025 10:30 AM EDT Office Visit [facility] [address] [place] [address], [address] [address] Heidy Julio PA-C [address] [place] [address] 10/08/2025 1:30 PM EST Appointment Echo Lab [address] [place] [address] Justo Mendez MD [address] [place] [address], [address] [address] 11/12/2025 10:00 AM EST Office Visit [facility] [address] [place] [address], [address] [address] Justo Mendez MD [address] [place] [address], [address] [address] 01/23/2026 12:00 PM EDT Office Visit [facility] [address] 3rd Floor, [address] [place] [address] Juanpablo Palma MD, MS 22 [facility], [address] [place] [address] [email or web address] documented as of this encounter Results * TTE COMPREHENSIVE (12/06/2017 10:15 AM EST) Body Surface Area 1.76 m2 Anatomical Region Laterality Modality Heart Ultrasound us Kody Hopson MD CV ECHO ORDERABLES Final Result documented in this encounter Visit Diagnoses Diagnosis Mitral valve insufficiency, unspecified etiology documented in this encounter Additional Health Concerns Infection Onset Date Last Indicated Resolved Time MDR-GN Comment:Infection Loaded by the Load Infection Utility 02/09/2017 02/09/2017 05/19/2023 1:22 AM E DT documented as of this encounter Care Teams Division Superintendent Relationship Specialty Start Date End Date Katja Harvey MD [address] [place] [address] [email or web address] PCP - General Internal Medicine 08/28/17 Bahman Goldberg MD [address] [place] [address] [email or web address] Historical LMR Provider 08/13/17 Katja Harvey MD 15 [place] [address] [email or web address] Historical LMR Provider 08/13/17 Kody Hopson MD 15 [place] [address] [email or web address] Historical LMR Provider 08/13/17 Rashad Merritt MD [email or web address] Historical LMR Provider 08/13/17 Kody Locke DO [address] [place] [address] [email or web address] Historical LMR Provider 08/13/17 10/30/21 Nathan Arellano MD [address] [place] [address] [email or web address] Historical LMR Provider 08/13/17 10/30/21 Jung Mitchell MD [address] [place] [address] [email or web address] Historical LMR Provider 08/13/17 10/30/21 [place] [address] [email or web address] Historical LMR Provider 08/13/17 10/30/21 Jazz Galvez MD [address] [place] [phone] Historical LMR Provider 08/13/17 2 documented as of this encounter Additional Source Comments The information contained in this document represents components of the legal health record. It is not the complete legal health record.[facility]
--- OUTSIDE RECORDS SUMMARY | 2025-07-22 16:53 | XMS_ITS | Encounter Summary ---
Author Organization [facility] Address [address] [email or web address] [facility] [address] [place] [address] Phone Care Team Providers Care House Superintendent Name Role Phone Bahman Goldberg MD Unavailable [phone] Katja Harvey MD Unavailable Enrrique Hopson MD Unavailable Rashad Merritt MD Unavailable [email or web address] Enrrique Locke DO Unavailable Nathan Arellano MD Unavailable [phone] Jung Mitchell MD Unavailable Mer Varela MD Unavailable Jazz Galvez MD Unavailable [phone] Katja Harvey MD Primary Care Provider Encounter Details Date Type Department Care Team (Late st Contact Info) Description 09/24/2018 Ancillary Orders Virtual Department [address] [place] [address] Bahman Irby MD [facility], [address] [place] [address] [email or web address] Personal history UTI Social History Tobacco Use Types Packs/Day Years [...] Info) Description 05/08/2025 Procedure Pass Echo Lab [address] [place] [address] 07/11/2025 Procedure Pass [address] [address] 08/01/2025 1:45 PM EDT Appointment [address] [address] Katja Harvey MD [address] [place] [address] 08/07/2025 10:30 AM EDT Office Visit [facility] [address] [place] [address], [address] [address] Heidy Julio PA-C [address] [place] [address] 10/08/2025 1:30 PM EST Appointment Echo Lab [place] [address] [place] [address] Justo Mendez MD [address] [place] [address], [address] [address] 11/12/2025 10:00 AM EST Office Visit [facility] [address] 3rd [facility], [address] [address] Justo Mendez MD [address] [place] [address], [address] [address] [email or web address] 01/23/2026 12:00 PM EDT Office Visit [facility] [address] 3rd Floor, [address] [place] [address] Juanpablo Palma MD, [place] [facility], [address] [place] [address] [email or web address] documented as of this encounter Results * US Kidneys (11/16/2018 10:19 AM EST) Anatomical Region Laterality Modality Abdomen, Kidney Ultrasound 11/16/2018 10:5 1 AM EST Impressions 11/16/2018 12:55 PM EST Renal ultrasound appears within the range of normal. Minimal central collecting system fullness in the right renal pelvis is within the range of normal. POS [id number] Edited by: Nakia Bradshaw on 11/16/2018 10:57 AM Narrative 11/16/2018 12:55 PM EST COMPARISON: 10/06/[address] examination November 08, 2016 FINDINGS: Kidneys: Right kidney measured at 9.3 cm and left 10.3 cm. No stones or masses are identified. Minimal fullness in the central renal pelvis is within the range of normal and less pronounced than on prior ultrasound. No scarring. No perinephric fluid collections. Other: Incidental note made of mildly echogenic hepatic parenchyma relative to renal cortical echogenicity which may indicate some underlying hepatic steatosis. Procedure Note Enrrique Naylor MD - 11/16/2018 COMPARISON: 10/06/[address] examination November 08, 2016 FINDINGS: Kidneys: Right kidney measured at 9.3 cm and left 10.3 cm. No stones ormasses are identified. Minimal fullness in the central renal pelvis iswithin the range of normal and less pronounced than on prior ultrasound.No scarring. No perinephric fluid collections. Other: Incidental note made of mildly echogenic hepatic parenchymarelative to renal cortical echogenicity which may indicate some underlyinghepatic steatosis. IMPRESSION: Renal ultrasound appears within the range of normal. Minimal centralcollecting system fullness in the right renal pelvis is within the rangeof normal. POS [email or web address] Edited by: Nakia Bradshaw on 11/16/2018 10:57 AM Bahman Irby MD IMG RENAL Final Result documented in this encounter Visit Diagnoses Diagnosis Personal history UTI Personal history of urinary (tract) infection Personal history UTI Personal history of urinary (tract) infection documented in this encounter Additional Health Concerns Infection Onset Date Last Indicated Resolved Time MDR-GN Comment:Infection Loaded by the Load Infection Utility 02/09/2017 02/09/2017 05/19/2023 1:22 AM E DT documented as of this encounter Care Teams House Superintendent Relationship Specialty Start Date End Date Katja Harvey MD [address] [place] [address] [email or web address] PCP - General Internal Medicine 08/28/17 Bahman Goldberg MD [address] [place] [address] [email or web address] Historical LMR Provider 08/13/17 Katja Harvey MD [address] [place] [address] [email or web address] Historical LMR Provider 08/13/17 Enrrique Hopson MD [address] [place] [address] [email or web address] Historical LMR Provider 08/13/17 Rashad Merritt MD [email or web address] Historical LMR Provider 08/13/17 Enrrique Locke DO [address] [place] [address] [email or web address] Historical LMR Provider 08/13/17 10/30/21 Nathan Arellano MD [address] [place] [address], [address] [address] [email or web address] Historical LMR Provider 08/13/17 10/30/21 Jung Mitchell MD [address] [place] [address], [address] [address] [email or web address] Historical LMR Provider 08/13/17 10/30/21 [place] [address] [email or web address] Historical LMR Provider 08/13/17 10/30/21 Jazz Galvez MD [address] [place] [id number] Historical LMR Provider 08/13/17 2 documented as of this encounter Additional Source Comments The information contained in this document represents components of the legal health record. It is not the complete legal health record.[facility]
--- OUTSIDE RECORDS SUMMARY | 2025-07-22 16:53 | XMS_ITS | Encounter Summary ---
Author Organization [facility] Address [address] [email or web address] [facility] [address] [place] [address] Phone Care Team Providers Care Emt/Paramedic Name Role Phone Bahman Goldberg MD Unavailable [phone] Katja Harvey MD Unavailable Kody Hopson MD Unavailable Rashad Merritt MD Unavailable [email or web address] Katja Harvey MD Primary Care Provider Encounter Details Date Type Department Care Team (Late st Contact Info) Description 10/21/2024 Transcribe Orders [facility] Laboratory [address] [place] [address] Joe Renee MD [address] [facility] Internal [facility] [place] [address] Social History Tobacco Use Types Packs/Day Years [...] Info) Description 05/08/2025 Procedure Pass Echo Lab [place] [address] 07/11/2025 Procedure Pass [address] [address] 08/01/2025 1:45 PM EDT Appointment [address] [address] Katja Harvey MD [address] [place] [address] 08/07/2025 10:30 AM EDT Office Visit [facility] [address] Floor, [address] [place] [address] Heidy Julio PA-C [address] [place] [address] 10/08/2025 1:30 PM EST Appointment Echo Lab [address] [place] [address] Justo Mendez MD [address] [place] [address], [address] [address] 11/12/2025 10:00 AM EST Office Visit [facility] [address] 3rd [facility], [address] [place] [address] Justo Mendez MD [address] [place] [address], [address] [address] 01/23/2026 12:00 PM EDT Office Visit [address] 3rd [facility], [address] [place] [address] Juanpablo Palma MD, MS [address] [place] [address], [address] [address] documented as of this encounter Visit Diagnoses Not on filedocumented in this encounter Care Teams Emt/Paramedic Relationship Specialty Start Date End Date Katja Harvey MD [address] [place] [id number] [email or web address] PCP - General Internal Medicine 08/28/17 Bahman Goldberg MD [address] [place] [address] [email or web address] Historical LMR Provider 08/13/17 Katja Harvey MD [address] [place] [email or web address] Historical LMR Provider 08/13/17 Kody Hopson MD [address] [place] [address] [email or web address] Historical LMR Provider 08/13/17 Rashad Merritt MD [email or web address] Historical LMR Provider 08/13/17 documented as of this encounter Additional Source Comments The information contained in this document represents components of the legal health record. It is not the complete legal health record.[facility]
--- OUTSIDE RECORDS SUMMARY | 2025-07-22 16:53 | XMS_ITS | Encounter Summary ---
Author Organization [facility] Address [address] [place] [address] Phone Care Team Providers Care Steeplechase Jockey Name Role Phone Bahman Goldberg MD Unavailable [phone] Katja Harvey MD Unavailable Kody Hopson MD Unavailable Rashad Merritt MD Unavailable [email or web address] Kody Locke DO Unavailable Nathan Arellano MD Unavailable Jung Mitchell MD Unavailable Mer Varela MD Unavailable Jazz Galvez MD Unavailable [phone] Katja Harvey MD Primary Care Provider Encounter Details Date Type Department Care Team (Late st Contact Info) Description 08/28/2017 Ancillary Orders Virtual Department [address] [place] [address] Bahman Irby MD [facility], [address] [place] [address] [email or web address] History of urinary tract infection; Urinary frequency; Incomplete emptying of bladder due to benign prostatic hyperplasia Social History Tobacco Use Types Packs/Day Years [...] Info) Description 05/08/2025 Procedure Pass Echo Lab [address] [place] [address] 07/11/2025 Procedure Pass [address] [address] 08/01/2025 1:45 PM EDT Appointment [address] [address] Katja Harvey MD [address] [place] [address] 08/07/2025 10:30 AM EDT Office Visit [facility] [address] [place] [address], [address] [address] Heidy Julio PA-C [address] [place] [address] [email or web address] 10/08/2025 1:30 PM EST Appointment Echo Lab [place] [address] [place] [address] Justo Mendez MD [address] [place] [address] 11/12/2025 10:00 AM EST Office Visit [facility] [address] [place] [address], [address] [address] Justo Mendez MD [address] [place] [address], [address] [address] 01/23/2026 12:00 PM EDT Office Visit [facility] [address] 3rd Floor, [address] [place] [address] Juanpablo Palma MD, MS 22 [facility], [address] [place] [address] [email or web address] documented as of this encounter Results * US Kidneys and Bladder (11/10/2017 11:48 AM EST) Anatomical Region Laterality Modality Abdomen, Kidney Ultrasound 11/10/2017 12:0 8 PM EST Impressions 11/10/2017 12:11 PM EST Minor right renal pelvic fullness with 30% postvoid residual in urinary bladder. The exam is otherwise unremarkable. S/S: History of urinary tract infection, urinary frequency, difficulty emptying bladder, postvoid residual POS - [id number] Narrative 11/10/2017 12:11 PM EST COMPARISON: CT abdomen pelvis November 08, 2016 and renal and bladder ultrasound October 06, 2016 FINDINGS: The right kidney measures 10.3 x 4.9 cm while the left kidney measures 10.9 x 5.9 cm. There is minor right renal pelvic fullness similar to that evident on prior CT imaging. No mass lesion, left pelvic dilatation, or nephrolithiasis is evident. The urinary bladder has an initial volume of 246 mL with a 31 mL postvoid residual. This is consistent with a 13% residual. Both ureteral jets are identified. Procedure Note Max Sloan MD - 11/10/2017 COMPARISON: CT abdomen pelvis November 08, 2016 and renal and bladderultrasound October 06, 2016 FINDINGS: The right kidney measures 10.3 x 4.9 cm while the left kidney [id number] x 5.9 cm. There is minor right renal pelvic fullness similar to that evident onprior CT imaging. No mass lesion, left pelvic dilatation, ornephrolithiasis is evident. The urinary bladder has an initial volume of 246 mL with a 31 mL postvoidresidual. This is consistent with a 13% residual. Both ureteral jets areidentified. IMPRESSION: Minor right renal pelvic fullness with 30% postvoid residual in urinarybladder. The exam is otherwise unremarkable. S/S: History of urinary tract infection, urinary frequency, difficultyemptying bladder, postvoid residual POS - [id number] Bahman Irby MD [facility] Final Result documented in this encounter Visit Diagnoses Diagnosis History of urinary tract infection Personal history of urinary (tract) infection Urinary frequency Incomplete emptying of bladder due to benign prostatic hyperplasia History of urinary tract infection Personal history of urinary (tract) infection Urinary frequency Incomplete emptying of bladder due to benign prostatic hyperplasia documented in this encounter Additional Health Concerns Infection Onset Date Last Indicated Resolved Time MDR-GN Comment:Infection Loaded by the Load Infection Utility 02/09/2017 02/09/2017 05/19/2023 1:22 AM E DT documented as of this encounter Care Teams Steeplechase Jockey Relationship Specialty Start Date End Date Katja Harvey MD [address] [place] [address] [email or web address] PCP - General Internal Medicine 08/28/17 Bahman Goldberg MD [address] [place] [address] [email or web address] Historical LMR Provider 08/13/17 Katja Harvey MD [address] [place] [address] [email or web address] Historical LMR Provider 08/13/17 Kody Hopson MD [address] [place] [address] [email or web address] Historical LMR Provider 08/13/17 Rashad Merritt MD [email or web address] Historical LMR Provider 08/13/17 Kody Locke DO [address] [place] [address] [email or web address] Historical LMR Provider 08/13/17 10/30/21 Nathan Arellano MD [address] [place] [address] [email or web address] Historical LMR Provider 08/13/17 10/30/21 Jung Mitchell MD [address] [place] [address] [email or web address] Historical LMR Provider 08/13/17 10/30/21 [place] [address] [email or web address] Historical LMR Provider 08/13/17 10/30/21 Jazz Galvez MD [facility] [place] [address] Historical LMR Provider 08/13/17 2 documented as of this encounter Additional Source Comments The information contained in this document represents components of the legal health record. It is not the complete legal health record.[facility]
--- OUTSIDE RECORDS SUMMARY | 2025-07-22 16:53 | XMS_ITS | Encounter Summary ---
Author Organization [facility] Address [address] [employer] [facility] [address] [place] [address] Phone Care Team Providers Care Landfill Grader Name Role Phone Bahman Goldberg MD Unavailable [phone] Katja Harvey MD Unavailable [phone] Kody Hopson MD Unavailable Rashad Merritt MD Unavailable [email or web address] Katja Harvey MD Primary Care Provider Encounter Details Date Type Department Care Team (Late st Contact Info) Description 06/27/2025 Ancillary Orders [facility], X-Ray - [address] [address] Katja Harvey MD [address] [place] [phone] [email or web address] Neck pain (Primary Dx) Social History Tobacco Use [...] Info) Description 05/08/2025 Procedure Pass Echo Lab [place] [address] [place] [address] 07/11/2025 Procedure Pass [address] [address] 08/01/2025 1:45 PM EDT Appointment [address] [address] Katja Harvey MD [address] [place] [address] 08/07/2025 10:30 AM EDT Office Visit [facility] [address] Floor, [address] [place] [address] Heidy Julio PADionte [address] [place] [address] 10/08/2025 1:30 PM EST Appointment Echo Lab [address] [place] [address] Justo Mendez MD [address] [place] [address], [address] [address] 11/12/2025 10:00 AM EST Office Visit [facility] [address] 3rd [facility], [address] [place] [address] Justo Mendez MD [address] [place] [address], [address] [address] 01/23/2026 12:00 PM EDT Office Visit [address] [place] [address], [address] [place] [address] Juanpablo Palma MD, MS [address] [place] [address], [address] [address] [email or web address] documented as of this encounter Results * XR CERVICAL SPINE 2-3 VIEWS (06/27/2025 12:20 PM EDT) Anatomical Region Laterality Modality C-spine Computed Radiogr aphy 06/29/2025 3:09 PM EDT Impressions 06/29/2025 3:11 PM EDT Spondylitic changes similar to prior study. If there is a clinical concern for disc herniation or spinal canal stenosis MRI can be considered. Narrative 06/29/2025 3:11 PM EDT XR CERVICAL SPINE 2-3 VIEWS Referring clinician's provided indication for this examination in Epic: Pain COMPARISON: 10/08/22 FINDINGS: Trace anterolisthesis of C3 on C4, C4 and C5 and trace retrolisthesis of C5 on C6. Vertebral body heights maintained. There are prominent anterior osteophyte formation seen at C4-5, C5-6 lesser extent remainder the cervical spine. There is moderate disc space narrowing at C5-6 and C6-7 similar prior study. Prevertebral soft tissues are within normal limits. Procedure Note Dawood Griggs MD - 06/29/2025 XR CERVICAL SPINE 2-3 VIEWS Referring clinician's provided indication for this examination in Epic:Pain COMPARISON: 10/08/22 FINDINGS: Trace anterolisthesis of C3 on C4, C4 and C5 and trace retrolisthesis ofC5 on C6. Vertebral body heights maintained. There are prominent anteriorosteophyte formation seen at C4-5, C5-6 lesser extent remainder thecervical spine. There is moderate disc space narrowing at C5-6 and C6-7similar prior study. Prevertebral soft tissues are within normal limits. IMPRESSION: Spondylitic changes similar to prior study. If there is a clinical concern for disc herniation or spinal canalstenosis MRI can be considered. Katja Harvey MD IMG XR SPINE Final Resul t documented in this encounter Visit Diagnoses Diagnosis Neck pain- Primary Cervicalgia Neck pain Cervicalgia documented in this encounter Care Teams Landfill Grader Relationship Specialty Start Date End Date Katja Harvey MD [address] [place] [address] [email or web address] PCP - General Internal Medicine 08/28/17 Bahman Goldberg MD [address] [place] [address] [email or web address] Historical LMR Provider 08/13/17 Katja Harvey MD [address] [place] [address] [email or web address] Historical LMR Provider 08/13/17 Kody Hopson MD [address] [place] [address] [email or web address] Historical LMR Provider 08/13/17 Rashad Merritt MD [email or web address] Historical LMR Provider 08/13/17 documented as of this encounter Additional Source Comments The information contained in this document represents components of the legal health record. It is not the complete legal health record.[facility]
--- OUTSIDE RECORDS SUMMARY | 2025-07-22 16:53 | XMS_ITS | Encounter Summary ---
Author Organization [facility] Address [address] [employer] [facility] [address] [place] [address] Phone Care Team Providers Care Jailer/Training Officer Name Role Phone Bahman Goldberg MD Unavailable [phone] Katja Harvey MD Unavailable Kody Hopson MD Unavailable Rashad Merritt MD Unavailable [email or web address] Kody Locke DO Unavailable Nathan Arellano MD Unavailable [phone] Jung Mitchell MD Unavailable Mer Varela MD Unavailable Jazz Galvez MD Unavailable [phone] Katja Harvey MD Primary Care Provider Encounter Details Date Type Department Care Team (Late st Contact Info) Description 07/05/2021 Procedure Pass [facility] [address] [place] [address] Social History Tobacco Use Types Packs/Day Years [...] Info) Description 05/08/2025 Procedure Pass Echo Lab [address] [place] [address] 07/11/2025 Procedure Pass [address] [address] 08/01/2025 1:45 PM EDT Appointment [address] [address] Katja Harvey MD [address] [place] [address] 08/07/2025 10:30 AM EDT Office Visit [facility] [address] [place] [address], [address] [address] Heidy Julio PA-C [address] [place] [address] 10/08/2025 1:30 PM EST Appointment Echo Lab [address] [place] [address] Justo Mendez MD [address] [place] [address], [address] [address] 11/12/2025 10:00 AM EST Office Visit [facility] [address] [place] [address], [address] [address] Justo Mendez MD [address] [place] [address], [address] [address] [email or web address] 01/23/2026 12:00 PM EDT Office Visit [facility] [address] [facility] 3rd Floor, [address] [place] [address] Juanpablo Palma MD, MS [address] [facility], [address] [place], [place] [phone] [email or web address] documented as of this encounter Visit Diagnoses Not on filedocumented in this encounter Additional Health Concerns Infection Onset Date Last Indicated Resolved Time MDR-GN Comment:Infection Loaded by the Load Infection Utility 02/09/2017 02/09/2017 05/19/2023 1:22 AM E DT documented as of this encounter Care Teams Jailer/Training Officer Relationship Specialty Start Date End Date Katja Harvey MD [address] [place] [address] [email or web address] PCP - General Internal Medicine 08/28/17 Bahman Goldberg MD [address] [place] [address] [email or web address] Historical LMR Provider 08/13/17 Katja Harvey MD [address] [place] [address] [email or web address] Historical LMR Provider 08/13/17 Kody Hopson MD [address] [place] [address] [email or web address] Historical LMR Provider 08/13/17 Rashad Merritt MD [email or web address] Historical LMR Provider 08/13/17 Kody Locke DO [address] [place] [address] [email or web address] Historical LMR Provider 08/13/17 10/30/21 Nathan Arellano MD [address] [place] [address], [address] [address] Historical LMR Provider 08/13/17 10/30/21 Jung Mitchell MD [address] [place] [address], [address] [address] [email or web address] Historical LMR Provider 08/13/17 10/30/21 [place] [address] [email or web address] Historical LMR Provider 08/13/17 10/30/21 Jazz Galvez MD [address] [place] [phone] Historical LMR Provider 08/13/17 2 documented as of this encounter Additional Source Comments The information contained in this document represents components of the legal health record. It is not the complete legal health record.[facility]
--- OUTSIDE RECORDS SUMMARY | 2025-07-22 16:53 | XMS_ITS | Encounter Summary ---
Author Organization [facility] Address [address] [employer] [facility] [address] [place] [address] Phone Care Team Providers Care Nut Processing Supervisor Name Role Phone Bahman Goldberg MD Unavailable [phone] Katja Harvey MD Unavailable [phone] Kody Hopson MD Unavailable Rashad Merritt MD Unavailable [email or web address] Katja Harvey MD Primary Care Provider Encounter Details Date Type Department Care Team (Late st Contact Info) Description 05/17/2024 Procedure Pass [facility] [address] [place] [address] Social History Tobacco Use Types Packs/Day Years [...] Description 05/08/2025 Procedure Pass [facility] [address] [place] [address] 07/11/2025 Procedure Pass [address] [address] 08/01/2025 1:45 PM EDT Appointment [address] [address] Katja Harvey MD [address] [place] [address] 08/07/2025 10:30 AM EDT Office Visit [facility] [address] [place] [address] 3rd Floor, [address] [place] [address] Heidy Julio PA-C [address] [place] [address] 10/08/2025 1:30 PM EST Appointment Echo Lab [address] [place] [address] Justo Mendez MD [address] [facility], [address] [place] [address] 11/12/2025 10:00 AM EST Office Visit [facility] [address] [place] [address] Dr 3rd Floor, [address] [place] [address] Justo Mendez MD [address] [facility], [address] [place] [address] 01/23/2026 12:00 PM EDT Office Visit [facility] [address] 3rd [facility], [address] [place] [address] Juanpablo Palma MD, MS [address] [facility], [address] [address] [email or web address] documented as of this encounter Visit Diagnoses Not on filedocumented in this encounter Care Teams Nut Processing Supervisor Relationship Specialty Start Date End Date Katja Harvey MD [address] [place] [address] [email or web address] PCP - General Internal Medicine 08/28/17 Bahman Goldberg MD [address] [place] [address] [email or web address] Historical LMR Provider 08/13/17 Katja Harvey MD [address] [place] [address] [email or web address] Historical LMR Provider 08/13/17 Kody Hopson MD [address] [place] [address] [email or web address] Historical LMR Provider 08/13/17 Rashad Merritt MD [email or web address] Historical LMR Provider 08/13/17 documented as of this encounter Additional Source Comments The information contained in this document represents components of the legal health record. It is not the complete legal health record.[facility]
--- OUTSIDE RECORDS SUMMARY | 2025-07-22 16:53 | XMS_ITS | Encounter Summary ---
Author Organization [facility] Address [address] [employer] [address] [place] [address] Phone Care Team Providers Care Aluminum Shingle Roofer Name Role Phone Bahman Goldberg MD Unavailable [phone] Katja Harvey MD Unavailable [phone] Kody Hopson MD Unavailable [phone] Rashad Merritt MD Unavailable [email or web address] Katja Harvey MD Primary Care Provider [phone] Reason for Referral * MRI/CAT Scan - Closed Specialty Diagnoses / Procedures Referred By Home [facility] Referred To Contact Radiology Diagnoses Nonintractable headache, unspecified chronicity pattern, unspecified headache type Procedures MRI Brain Katja Harvey MD [address] [place] [address] Phone: tel: fax: [email or web address] Referral ID Status Reason Start Date Expiration Date Visits Re quested Visits Authorized [id number] Closed 11/22/2022 11/22/2023 1 1 Encounter Details Date Type Department Care Team (Late st Contact Info) Description 11/22/2022 Transcribe Orders Virtual Department 30 [place] [address] Katja Harvey MD [address] [place] [phone] Nonintractable headache, unspecified chronicity pattern, unspecified headache type (Primary Dx) Social History Tobacco Use Types [...] Info) Description 05/08/2025 Procedure Pass Echo Lab [place] [address] [place] [address] 07/11/2025 Procedure Pass [address] [address] 08/01/2025 1:45 PM EDT Appointment [address] [address] Katja Harvey MD [address] [place] [email or web address] 08/07/2025 10:30 AM EDT Office Visit [facility] [address] Floor, [address] [place] [address] Heidy Julio PA-C [address] [place] [address] 10/08/2025 1:30 PM EST Appointment [facility] [place] [address] Justo Mendez MD [address] [facility], [address] [place] [address] 11/12/2025 10:00 AM EST Office Visit [facility] [address] Floor, [address] [place] [address] Justo Mendez MD [address] [facility], [address] [place] [address] 01/23/2026 12:00 PM EDT Office Visit [address] 3[address] Floor, [address] [place] [address] Juanpablo Palma MD, MS 22 [facility], [address] [place] [address] [email or web address] documented as of this encounter Results * MRI BRAIN WITHOUT CONTRAST (12/13/2022 3:50 PM EST) Anatomical Region Laterality Modality Head Magnetic Resonan ce 12/14/2022 9:24 AM EST Impressions 12/14/2022 9:41 AM EST No acute infarct, mass lesion or acute hemorrhage. Narrative 12/14/2022 9:41 AM EST MRI BRAIN WITHOUT CONTRAST TECHNIQUE: MRI BRAIN WITHOUT CONTRAST Multi-sequence, multi-planar MRI of the brain was performed without intravenous contrast. COMPARISON: CT brain 05/23/2018 FINDINGS: Brain Parenchyma: No evidence of acute infarct, mass or acute hemorrhage. Scattered punctate foci of supra and infratentorial susceptibility artifact which may reflect sequela of remote microhemorrhage. There are scattered foci of T2 hyperintensity in the white matter, likely a manifestation of chronic small vessel disease. Ventricular System and Extra-Axial Spaces: The ventricles and cortical sulci are prominent. No evidence of midline shift or hydrocephalus. Extracranial Structures: Arterial flow voids in the skull base are present. Procedure Note Talya Kiser MD - 12/14/2022 MRI BRAIN WITHOUT CONTRAST TECHNIQUE: MRI BRAIN WITHOUT CONTRAST Multi-sequence, multi-planar MRI of the brain was performed withoutintravenous contrast. COMPARISON: CT brain 05/23/2018 FINDINGS: Brain Parenchyma: No evidence of acute infarct, mass or acute hemorrhage.Scattered punctate foci of supra and infratentorial susceptibilityartifact which may reflect sequela of remote microhemorrhage. There arescattered foci of T2 hyperintensity in the white matter, likely amanifestation of chronic small vessel disease. Ventricular System and Extra-Axial Spaces: The ventricles and corticalsulci are prominent. No evidence of midline shift or hydrocephalus. Extracranial Structures: Arterial flow voids in the skull base arepresent. IMPRESSION: No acute infarct, mass lesion or acute hemorrhage. Katja Harvey MD IMG MR HEAD/NECK Final Resu lt documented in this encounter Visit Diagnoses Diagnosis Nonintractable headache, unspecified chronicity pattern, unspecified headache type- Primary Nonintractable headache, unspecified chronicity pattern, unspecified headache type documented in this encounter Additional Health Concerns Infection Onset Date Last Indicated Resolved Time MDR-GN Comment:Infection Loaded by the Load Infection Utility 02/09/2017 02/09/2017 05/19/2023 1:22 AM E DT documented as of this encounter Care Teams Aluminum Shingle Roofer Relationship Specialty Start Date End Date Katja Harvey MD [address] [place] [address] [email or web address] PCP - General Internal Medicine 08/28/17 Bahman Goldberg MD [address] [place] [address] Historical LMR Provider 08/13/17 Katja Harvey MD [address] [place] [address] [email or web address] Historical LMR Provider 08/13/17 Kody Hopson MD [address] [place] [address] [email or web address] Historical LMR Provider 08/13/17 Rashad Merritt MD [email or web address] Historical LMR Provider 08/13/17 documented as of this encounter Additional Source Comments The information contained in this document represents components of the legal health record. It is not the complete legal health record.[facility]
--- OUTSIDE RECORDS SUMMARY | 2025-07-22 16:54 | XMS_ITS | Encounter Summary ---
Author Organization [facility] Address [address] [facility] [address] [place] [address] Phone Care Team Providers Care Enterprise Security Architect Name Role Phone Bahman Goldberg MD Unavailable [phone] Katja Harvey MD Unavailable Kody Hopson MD Unavailable Rashad Merritt MD Unavailable [email or web address] Kody Locke DO Unavailable Nathan Arellano MD Unavailable [phone] Jung Mitchell MD Unavailable Mer Varela MD Unavailable Jazz Galvez MD Unavailable [phone] Katja Harvey MD Primary Care Provider Encounter Details Date Type Department Care Team (Late st Contact Info) Description 10/10/2019 Ancillary Orders Virtual Department 30 [place] [address] Denisse Hernandez PA [address] [phone] [email or web address] Personal history of urinary tract infection Social History Tobacco Use Types Packs/Day Years [...] Info) Description 05/08/2025 Procedure Pass Echo Lab [address] [place] [address] 07/11/2025 Procedure Pass [address] [address] 08/01/2025 1:45 PM EDT Appointment [address] [address] Katja Harvey MD [address] [place] [address] 08/07/2025 10:30 AM EDT Office Visit [facility] [address] [place] [address], [address] [address] Heidy Julio PA-C [address] [place] [address] 10/08/2025 1:30 PM EST Appointment Echo [facility] [place] [address] [place] [address] Justo Mendez MD [address] [place] [address], [address] [address] 11/12/2025 10:00 AM EST Office Visit [facility] [address] [facility], [address] [place] [address] Justo Mendez MD [address] [place], [place] [address], [place] [address] [email or web address] 01/23/2026 12:00 PM EDT Office Visit [facility] [address] Floor, [address] [place] [address] Juanpablo Palma MD, MS 22 [facility], [address] [place] [address] [email or web address] documented as of this encounter Results * US Kidneys (11/13/2019 8:56 AM EST) Anatomical Region Laterality Modality Abdomen, Kidney Ultrasound 11/13/2019 9:03 AM EST Impressions 11/13/2019 11:00 AM EST Normal renal ultrasound. No renal calculi or hydronephrosis. POS - [id number] Narrative 11/13/2019 11:00 AM EST EXAM: US KIDNEYS HISTORY: Personal history of urinary tract infection TECHNIQUE: Grayscale and color Doppler ultrasound imaging of the kidneys. COMPARISON: 11/16/2018 ultrasound. FINDINGS: RIGHT KIDNEY: Normal renal size. Measures 10.4 x 5.0 cm. Cortical echogenicity is normal. Normal cortical thickness. There is no hydronephrosis. There are no shadowing calculi. LEFT KIDNEY: Normal renal size. Measures 10.7 x 4.7 cm. Cortical echogenicity is normal. Normal cortical thickness. There is no hydronephrosis. There are no shadowing calculi. Procedure Note Audrey Shabazz MD - 11/13/2019 EXAM: US KIDNEYS HISTORY: Personal history of urinary tract infection TECHNIQUE: Grayscale and color Doppler ultrasound imaging of thekidneys. COMPARISON: 11/16/2018 ultrasound. FINDINGS: RIGHT KIDNEY: Normal renal size. Measures 10.4 x 5.0 cm. Corticalechogenicity is normal. Normal cortical thickness. There is nohydronephrosis. There are no shadowing calculi. LEFT KIDNEY: Normal renal size. Measures 10.7 x 4.7 cm. Corticalechogenicity is normal. Normal cortical thickness. There is nohydronephrosis. There are no shadowing calculi. IMPRESSION: Normal renal ultrasound. No renal calculi or hydronephrosis. POS - [id number] us Denisse CASTRO IMG US RENAL Final Resu lt documented in this encounter Visit Diagnoses Diagnosis Personal history of urinary tract infection Personal history of urinary tract infection documented in this encounter Additional Health Concerns Infection Onset Date Last Indicated Resolved Time MDR-GN Comment:Infection Loaded by the Load Infection Utility 02/09/2017 02/09/2017 05/19/2023 1:22 AM E DT documented as of this encounter Care Teams Enterprise Security Architect Relationship Specialty Start Date End Date Katja Harvey MD [address] [place] [address] [email or web address] PCP - General Internal Medicine 08/28/17 Bahman Goldberg MD [address] [place] [address] [email or web address] Historical LMR Provider 08/13/17 Katja Harvey MD [address] [place] [address] [email or web address] Historical LMR Provider 08/13/17 Kody Hopson MD [address] [place] [address] [email or web address] Historical LMR Provider 08/13/17 Rashad Merritt MD [email or web address] Historical LMR Provider 08/13/17 Kody Locke DO [address] [place] [address] [email or web address] Historical LMR Provider 08/13/17 10/30/21 Nathan Arellano MD [address] [place] [address], [address] [address] [email or web address] Historical LMR Provider 08/13/17 10/30/21 Jung Mitchell MD [address] [place] [address], [address] [address] [email or web address] Historical LMR Provider 08/13/17 10/30/21 [place] [address] [email or web address] Historical LMR Provider 08/13/17 10/30/21 Jazz Galvez MD [address] [place] [phone] Historical LMR Provider 08/13/17 2 documented as of this encounter Additional Source Comments The information contained in this document represents components of the legal health record. It is not the complete legal health record.[facility]
--- OUTSIDE RECORDS SUMMARY | 2025-07-22 16:54 | XMS_ITS | Encounter Summary ---
Author Organization [facility] Address [address] [place] [address] [place] [address] Phone Care Team Providers Care Husbandry Technician Name Role Phone Bahman Goldberg MD Unavailable [phone] Katja Harvey MD Unavailable [phone] Enrrique Hopson MD Unavailable [phone] Rashad Merritt MD Unavailable [email or web address] Enrrique Locke DO Unavailable Nathan Arellano MD Unavailable [phone] Jung Mitchell MD Unavailable [phone] [facility] Hospital[facility] luo MD Unavailable Jazz Galvez MD Unavailable [phone] Katja Harvey MD Primary Care Provider [phone] Reason for Referral * MRI/CAT Scan - Closed Specialty Diagnoses / Procedures Referred By Contkristin t Referred To Contact Radiology Diagnoses Ataxia Procedures CT Grinder Machine Knife SetterKatja Harvey MD Phone: tel: fax: mailto: Referral ID Status Reason Start Date Expiration Date Visits Re quested Visits Authorized [id number] Closed 05/15/2018 05/15/2019 1 1 Encounter Details Date Type Department Care Team (Late st Contact Info) Description 05/15/2018 Ancillary Orders Virtual Department [address] [place] [address] Katja Harvey MD [address] [place] [address] Ataxia Social History Tobacco Use Types Packs/Day Years [...] Encounters Date Type Department Care Team (Late Contact Info) Description 05/08/2025 Procedure Pass Echo Lab [address] [place] [address] 07/11/2025 Procedure Pass [address] [address] 08/01/2025 1:45 PM EDT Appointment [address] [address] Katja Havrey MD [address] [place] [address] 08/07/2025 10:30 AM EDT Office Visit [facility] [address] [place] [address] 3rd Floor, [address] [place] [address] Heidy Julio PA-C [address] [place] [address] 10/08/2025 1:30 PM EST Appointment Echo Lab [place] [address] [place] [address] Justo Mendez MD 22 [facility], [address] [place] [address] [email or web address] 11/12/2025 10:00 AM EST Office Visit [facility] [address] 3rd Floor, [address] [place], [place] [phone] Justo Mendez MD 22 [facility], [address] [place] [address] 01/23/2026 12:00 PM EDT Office Visit [address] 3rd Floor, [address] [place], [place] [phone] Juanpablo Palma MD, MS 22 [facility], [address] [place] [address] [id number] [email or web address] documented as of this encounter Results * CT HEAD WITHOUT CONTRAST (05/23/2018 12:45 PM EDT) Anatomical Region Laterality Modality Head Computed Tomogra phy 05/23/2018 1:26 PM EDT Impressions 05/23/2018 2:21 PM EDT No posterior fossa abnormality identified. No specific source of the gait disturbance. Possible mild white matter changes. TOTAL CTDIvol: 58.4 mGy POS: [id number] Edited by: Joanne Dela Cruz on 05/23/2018 1:39 PM Narrative 05/23/2018 2:21 PM EDT HISTORY: Ataxia. Gait disturbance. COMPARISON: None. TECHNIQUE: Unenhanced imaging obtained from skull base to vertex. Sagittal and coronal reformats generated. Manual dose reduction technique tailored for patient and site of imaging. FINDINGS: No abnormal intra or extra-axial blood or fluid collection, mass, or mass effect is identified. Fourth ventricle is patent and midline. No CP angle mass. Equivocal minor white matter hypodensity in some of the frontal lobe regions. No marked white matter changes or volume loss. No gross orbital lesion in the visualized portions of the orbits. Pituitary not enlarged. Cerebellar tonsils not ectopic. There is some hyperostosis. No calvarial fracturing or bony destructive lesions. Mastoids and middle ear spaces clear. No fluid in visualized paranasal sinuses. Procedure Note Enrrique Naylor MD - 05/23/2018 HISTORY: Ataxia. Gait disturbance. COMPARISON: None. TECHNIQUE: Unenhanced imaging obtained from skull base to vertex. Sagittaland coronal reformats generated. Manual dose reduction technique tailoredfor patient and site of imaging. FINDINGS: No abnormal intra or extra-axial blood or fluid collection, mass, or masseffect is identified. Fourth ventricle is patent and midline. No CP anglemass. Equivocal minor white matter hypodensity in some of the frontal loberegions. No marked white matter changes or volume loss. No gross orbitallesion in the visualized portions of the orbits. Pituitary not enlarged.Cerebellar tonsils not ectopic. There is some hyperostosis. No calvarialfracturing or bony destructive lesions. Mastoids and middle ear spacesclear. No fluid in visualized paranasal sinuses. IMPRESSION: No posterior fossa abnormality identified. No specific source of the gaitdisturbance. Possible mild white matter changes. TOTAL CTDIvol: 58.4 mGy POS: [id number] Edited by: Joanne Dela Cruz on 05/23/2018 1:39 PM Katja Harvey MD [facility] [place] [facility] HEAD/NECK Final Resu lt documented in this encounter Visit Diagnoses Diagnosis Ataxia Lack of coordination Ataxia Lack of coordination documented in this encounter Additional Health Concerns Infection Onset Date Last Indicated Resolved Time MDR-GN Comment:Infection Loaded by the Load Infection Utility 02/09/2017 02/09/2017 05/19/2023 1:22 AM E DT documented as of this encounter Care Teams Husbandry Technician Relationship Specialty Start Date End Date Katja Harvey MD [address] [place] [address] PCP - General Internal Medicine 08/28/17 Bahman Goldberg MD [address] [place] [address] [email or web address] Historical LMR Provider 08/13/17 Katja Harvey MD [address] [place] [address] [email or web address] Historical LMR Provider 08/13/17 Enrrique Hopson MD [address] [place] [address] [email or web address] Historical LMR Provider 08/13/17 Rashad Merritt MD [email or web address] Historical LMR Provider 08/13/17 Enrrique Locke DO [address] [place] [address] [email or web address] Historical LMR Provider 08/13/17 10/30/21 Nathan Arellano MD [address] [place] [address], [address] [address] [email or web address] Historical LMR Provider 08/13/17 10/30/21 Jung Mitchell MD [address] [place] [address], [address] [address] [email or web address] Historical LMR Provider 08/13/17 10/30/21 Mer Varela MD CRISTIANA KRISHNAN [address] [email or web address] Historical LMR Provider 08/13/17 10/30/21 Jazz Galvez MD [address] [place] [phone] Historical LMR Provider 08/13/17 2 documented as of this encounter Additional Source Comments The information contained in this document represents components of the legal health record. It is not the complete legal health record.[facility]
--- OUTSIDE RECORDS SUMMARY | 2025-07-22 16:54 | XMS_ITS | Encounter Summary ---
Author Organization [facility] Address [address] [employer] [facility] [address] [place] [address] Phone Care Team Providers Care Director Of Analytical Development Name Role Phone Bahman Goldberg MD Unavailable [phone] Katja Harvey MD Unavailable Kody Hopson MD Unavailable Rashad Merritt MD Unavailable [email or web address] Kody Locke DO Unavailable Nathan Arellano MD Unavailable [phone] Jung Mitchell MD Unavailable Mer Varela MD Unavailable Jazz Galvez MD Unavailable [phone] Katja Harvey MD Primary Care Provider [phone] Encounter Details Date Type Department Care Team (Late st Contact Info) Description 11/22/2018 Ancillary Orders Virtual Department [address] [place] [address] Katja Harvey MD [address] [place] [address] [email or web address] Breast screening Social History Tobacco Use Types [...] Info) Description 05/08/2025 Procedure Pass Echo Lab [address] [place] [address] 07/11/2025 Procedure Pass [address] [address] 08/01/2025 1:45 PM EDT Appointment [address] [address] Katja Harvey MD [address] [place] [address] 08/07/2025 10:30 AM EDT Office Visit [facility] [address] [place] [address], [address] [address] Heidy Julio PA-C [address] [place] [address] 10/08/2025 1:30 PM EST Appointment Echo Lab [address] [place] [address] Justo Mendez MD [address] [place] [address], [address] [address] 11/12/2025 10:00 AM EST Office Visit [facility] [address] 3rd [facility], [address] [place] [address] Justo Mendez MD [address] [place] [address], [address] [address] 01/23/2026 12:00 PM EDT Office Visit [facility] 22 [facility] 3rd Floor, [address] [place] [address] Juanpablo Palma MD, MS 22 [facility], [address] [place] [address] [email or web address] documented as of this encounter Results * BI MAMMOGRAM SCREENING WITH TOMOSYNTHESIS WITH CAD (BILATERAL) (02/18/2019 10:18 AM EDT) Anatomical Region Laterality Modality Breast Left, Breast Right, Breast Bilateral Bila teral Mammography 02/20/2019 2:07 PM EDT Impressions 02/20/2019 2:11 PM EDT No mammographic signs of malignancy. Annual screening is recommended. BI-RADS CATEGORY: 2 - Benign finding. DENSITY: There are scattered fibroglandular densities. POS - [id number] Narrative 02/20/2019 2:11 PM EDT Bilateral mammography is performed in conjunction with computed aided detection. 3-D tomography along with 2-D C view imaging was also performed. Comparison made to previous dated as far back as 09/10/2012 and as recent as 02/14/2018. Bilateral well-circumscribed masses are stable. No suspicious masses, areas of architectural distortion or suspicious microcalcifications. Stable bilateral vascular calcifications. Procedure Note Garry Kelly MD - 02/20/2019 Bilateral mammography is performed in conjunction with computed aideddetection. 3-D tomography along with 2-D C view imaging was alsoperformed. Comparison made to previous dated as far back as 09/10/2012 andas recent as 02/14/2018. Bilateral well-circumscribed masses are stable. No suspicious masses,areas of architectural distortion or suspicious microcalcifications.Stable bilateral vascular calcifications. IMPRESSION: No mammographic signs of malignancy. Annual screening is recommended. BI-RADS CATEGORY: 2 - Benign finding. DENSITY: There are scattered fibroglandular densities. POS - [id number] Katja Harvey MD IMG MG EXAMS Final Resul t documented in this encounter Visit Diagnoses Diagnosis Breast screening Breast screening, unspecified Breast screening Breast screening, unspecified documented in this encounter Additional Health Concerns Infection Onset Date Last Indicated Resolved Time MDR-GN Comment:Infection Loaded by the Load Infection Utility 02/09/2017 02/09/2017 05/19/2023 1:22 AM E DT documented as of this encounter Care Teams Director Of Analytical Development Relationship Specialty Start Date End Date Katja Harvey MD [address] [place] [address] [email or web address] PCP - General Internal Medicine 08/28/17 Bahman Goldberg MD [address] [place] [address] [email or web address] Historical LMR Provider 08/13/17 Katja Harvey MD [address] [place] [address] [email or web address] Historical LMR Provider 08/13/17 Kody Hopson MD [address] [place] [address] [email or web address] Historical LMR Provider 08/13/17 Rashad Merritt MD [email or web address] Historical LMR Provider 08/13/17 Kody Locke DO [address] [place] [address] [email or web address] Historical LMR Provider 08/13/17 10/30/[address] [facility], [address] [place] [address] [email or web address] Historical LMR Provider 08/13/17 10/30/21 Jung Mitchell MD [address] [place] [address], [address] [place] [address] [email or web address] Historical LMR Provider 08/13/17 10/30/21 [place] [address] [email or web address] Historical LMR Provider 08/13/17 10/30/21 Jazz Galvez MD [address] [place] [phone] Historical LMR Provider 08/13/17 2 documented as of this encounter Additional Source Comments The information contained in this document represents components of the legal health record. It is not the complete legal health record.[facility]
--- OUTSIDE RECORDS SUMMARY | 2025-07-22 16:56 | XMS_ITS | Encounter Summary ---
Author Organization [facility] Address [address] [employer] [facility] [address] [place] [phone] Phone Care Team Providers Care Hand Model Name Role Phone Bahman Goldberg MD Unavailable [phone] Katja Harvey MD Unavailable [phone] Kody Hopson MD Unavailable Rashad Merritt MD Unavailable [email or web address] Kody Locke DO Unavailable Nathan Arellano MD Unavailable [phone] Jung Mitchell MD Unavailable Mer Varela MD Unavailable Jazz Galvez MD Unavailable [phone] Katja Harvey MD Primary Care Provider Encounter Details Date Type Department Care Team (Late st Contact Info) Description 04/13/2018 Ancillary Orders Virtual Department [address] [place] [address] Jacklyn Galicia PA [address] [place] [address] [email or web address] Swelling of left lower extremity; Pain in left lower leg Social History Tobacco Use Types Packs/Day Years [...] Info) Description 05/08/2025 Procedure Pass Echo Lab [address] [place] [address] 07/11/2025 Procedure Pass [address] [address] 08/01/2025 1:45 PM EDT Appointment [address] [address] Katja Harvey MD [address] [place] [address] 08/07/2025 10:30 AM EDT Office Visit [address] [place] [address], [address] [address] Heidy Julio PA-C [address] [place] [address] 10/08/2025 1:30 PM EST Appointment Echo Lab [address] [place] [address] Justo Mendez MD [address] [place] [address] 11/12/2025 10:00 AM EST Office Visit [facility] [address] 3rd [facility], [address] [address] Justo Mendez MD [address] [place] [address], [address] [address] 01/23/2026 12:00 PM EDT Office Visit [facility] [address]rd Floor, [address] [place] [address] Juanpablo Palma MD, MS 22 [facility], [address] [place] [address] [email or web address] documented as of this encounter Results * US Lower Extremity Veins Duplex (Left) (04/13/2018 3:36 PM EDT) Anatomical Region Laterality Modality Hip Left, Thigh Left, Knee L eft, Leg Left, Ankle Left, Foot Left Ultrasound 04/13/2018 4:44 PM EDT Impressions 04/13/2018 4:44 PM EDT No evidence of DVT. POS [id number] POS [id number] Narrative 04/13/2018 4:44 PM EDT Comparison:None Combined real-time, color flow and Doppler evaluation of the deep venous system of the left leg shows readily compressible veins with a normal Doppler waveform and easily elicited augmentation from the groin through the trifurcation vessels into the mid calf. No popliteal cyst is apparent. Procedure Note Jay Jolley MD - 04/13/2018 Comparison:None Combined real-time, color flow and Doppler evaluation of the deep venoussystem of the left leg shows readily compressible veins with a normalDoppler waveform and easily elicited augmentation from the groin throughthe trifurcation vessels into the mid calf. No popliteal cyst is apparent. IMPRESSION: No evidence of DVT. POS [id number] POS [id number] us Jacklyn CASTRO CV US VASCULAR Final Result documented in this encounter Visit Diagnoses Diagnosis Swelling of left lower extremity Pain in left lower leg Swelling of left lower extremity Pain in left lower leg documented in this encounter Additional Health Concerns Infection Onset Date Last Indicated Resolved Time MDR-GN Comment:Infection Loaded by the Load Infection Utility 02/09/2017 02/09/2017 05/19/2023 1:22 AM E DT documented as of this encounter Care Teams Hand Model Relationship Specialty Start Date End Date Katja Harvey MD [address] [place] [address] [email or web address] PCP - General Internal Medicine 08/28/17 Bahman Goldberg MD [address] [place] [address] [email or web address] Historical LMR Provider 08/13/17 Katja Harvey MD [address] [place] [address] [email or web address] Historical LMR Provider 08/13/17 Kody Hopson MD [address] [place] [address] [email or web address] Historical LMR Provider 08/13/17 Rashad Merritt MD [email or web address] Historical LMR Provider 08/13/17 Kody Locke DO [address] [place] [address] [email or web address] Historical LMR Provider 08/13/17 10/30/21 Nathan Arellano MD [address] [place] [address], [address] [address] [email or web address] Historical LMR Provider 08/13/17 10/30/21 Jung Mitchell MD [address] [address] [email or web address] Historical LMR Provider 08/13/17 10/30/21 [place] [address] [email or web address] Historical LMR Provider 08/13/17 10/30/21 Jazz Galvez MD [address] [place] [phone] Historical LMR Provider 08/13/17 2 documented as of this encounter Additional Source Comments The information contained in this document represents components of the legal health record. It is not the complete legal health record.[facility]
--- OUTSIDE RECORDS SUMMARY | 2025-07-22 16:56 | XMS_ITS | Encounter Summary ---
Author Organization [facility] Address [address] [employer] [facility] [address] [place] [address] Phone Care Team Providers Care Meat Slicer Name Role Phone Bahman Goldberg MD Unavailable [phone] Katja Harvey MD Unavailable [phone] Kody Hopson MD Unavailable Rashad Merritt MD Unavailable [email or web address] Kody Locke DO Unavailable Nathan Arellano MD Unavailable [phone] Jung Mitchell MD Unavailable [phone] Mer Varela MD Unavailable Jazz Galvez MD Unavailable [phone] Katja Harvey MD Primary Care Provider Encounter Details Date Type Department Care Team (Late st Contact Info) Description 05/21/2018 Transcribe Orders [facility] [address] [place] [address] Katja Harvey MD [address] [place] [address] [phone] [email or web address] Balance problem (Primary Dx) Social History Tobacco Use Types [...] Description 05/08/2025 Procedure Pass [facility] [address] [place] [address] 07/11/2025 Procedure Pass [address] [address] 08/01/2025 1:45 PM EDT Appointment [address] [address] Katja Harvey MD [address] [place] [email or web address] 08/07/2025 10:30 AM EDT Office Visit [facility] [address] [place] [address], [address] [address] Heidy Julio PA-C [address] [place] [address] 10/08/2025 1:30 PM EST Appointment [facility] [place] [address] [place] [address] Justo Mendez MD [address] [place] [address] 11/12/2025 10:00 AM EST Office Visit [facility] [address] [place] [address], [address] [address] Justo Mendez MD [address] [place] [address] 01/23/2026 12:00 PM EDT Office Visit [facility] [address] [facility] 3rd Floor, [address] [place] [address] Juanpablo Palma MD, MS [address] [facility], [address] [place], [place] [id number] [email or web address] documented as of this encounter Results * Vitamin B12 (05/21/2018 8:10 AM EDT) Pathologist [facility] VITAMIN B12 558 232 - 1,245 pg/mL [facility] Blood 05/21/2018 8:10 AM EDT 05/21/2018 8:32 AM EDT Katja Harvey MD LAB BLOOD ORDERABLES Final Result Performing Organization Address City/[facility]/ZIP Co de Phone Number [address] [address] * TSH (05/21/2018 8:10 AM EDT) Pathologist [facility] TSH 3.22 0.27 - 4.20 uIU/mL [facility] Blood 05/21/2018 8:10 AM EDT 05/21/2018 8:32 AM EDT Katja Harvey MD LAB BLOOD ORDERABLES Final Result [address] [address] * (ABNORMAL) Basic metabolic panel (05/21/2018 8:10 AM EDT) [facility] SODIUM 141 133 - 146 mmol/L [facility] CHLORIDE 102 96 - 108 mmol/L [facility] POTASSIUM 4.5 3.3 - 5.1 mmol/L [facility] CO2 25 21 - 35 mmol/L [facility] BUN 23(H) 6 - 19 mg/dL [facility] CREATININE 0.60 0.5 - 1.5 mg/dL [facility] GLUCOSE 99 70 - 99 mg/dL [facility] CALCIUM 9.5 8.4 - 10.3 mg/dL [facility] EGFR 89 >59 mL/min/1.7 3m2 [facility] Comment:If patient is black, multiply result by 1.159. Estimated glomerular filtration rate calculated using the CKD-EPI equation. ANION GAP 19 10 - 20 mmol/L [facility] Blood 05/21/2018 8:10 AM EDT 05/21/2018 8:32 AM EDT us Katja Harvey MD LAB BLOOD ORDERABLES Final Result Performing Organization Address City/State/[facility] Co de Phone Number [address] [address] documented in this encounter Visit Diagnoses Diagnosis Balance problem- Primary Abnormality of gait documented in this encounter Additional Health Concerns Infection Onset Date Last Indicated Resolved Time MDR-GN Comment:Infection Loaded by the Load Infection Utility 02/09/2017 02/09/2017 05/19/2023 1:22 AM E DT documented as of this encounter Care Teams Meat Slicer Relationship Specialty Start Date End Date Katja Harvey MD [address] [place] [address] [email or web address] PCP - General Internal Medicine 08/28/17 Bahman Goldberg MD [address] [place] [address] [email or web address] Historical LMR Provider 08/13/17 Katja Harvey MD [address] [place] [address] [email or web address] Historical LMR Provider 08/13/17 Kody Hopson MD [address] [place] [address] [email or web address] Historical LMR Provider 08/13/17 Rashad Merritt MD [email or web address] Historical LMR Provider 08/13/17 Kody Locke DO [address] [place] [address] [email or web address] Historical LMR Provider 08/13/17 10/30/21 Nathan Arellano MD [address] [place] [address] [email or web address] Historical LMR Provider 08/13/17 10/30/21 Jung Mitchell MD [address] [place] [address] [email or web address] Historical LMR Provider 08/13/17 10/30/21 [place] [address] [email or web address] Historical LMR Provider 08/13/17 10/30/21 Jazz Galvez MD [address] [place] [address] Historical LMR Provider 08/13/17 2 documented as of this encounter Additional Source Comments The information contained in this document represents components of the legal health record. It is not the complete legal health record.[facility]
--- OUTSIDE RECORDS SUMMARY | 2025-07-22 16:56 | XMS_ITS | Encounter Summary ---
Author Organization [facility] Address [address] [facility] [address] [place] [address] Phone Care Team Providers Care Machinist [employer]otive Name Role Phone Bahman Goldberg MD Unavailable [phone] Katja Harvey MD Unavailable [phone] Kody Hopson MD Unavailable Rashad Merritt MD Unavailable [email or web address] Katja Harvey MD Primary Care Provider Encounter Details Date Type Department Care Team (Latest Contact Info) Description 11/19/2021 Transcribe [facility] [address] [place] [address] 3rd Floor, [address] [place] [address] Av Bray, DO [address] [place] [address] Abnormal electrocardiogram (Primary Dx) Social History Tobacco Use Types [...] Description 05/08/2025 Procedure Pass Echo Lab [address] [place] [address] 07/11/2025 Procedure Pass [address] [address] 08/01/2025 1:45 PM EDT Appointment [address] [address] Katja Harvey MD [address] [place] [address] 08/07/2025 10:30 AM EDT Office Visit [facility] [address] [place] [address], [address] [address] Heidy Julio PA-C [address] [place] [address] 10/08/2025 1:30 PM EST Appointment [facility] [address] [place] [address] Justo Mendez MD [address] [place] [address] 11/12/2025 10:00 AM EST Office Visit [address] 3rd [facility], [address] [address] Justo Mendez MD [address] [place] [address] 01/23/2026 12:00 PM EDT Office Visit [address], [address] [place] [address] Juanpablo Palma MD, MS [address] [facility], [address] [place] [address] [email or web address] documented as of this encounter Results * Holter Monitor 48 Hours (12/03/2021 9:40 AM EST) Anatomical Region Laterality Modality Heart Other Narrative 12/03/2021 10:10 AM EST Holter monitor report Indication abnormal EKG Findings: The underlying rhythm is sinus rhythm with average heart rate of 78 bpm, minimum heart rate 61 bpm, maximal heart rate of 18 bpm. There are rare isolated PVCs and very rare ventricular bigeminy and ventricular couplets. There are very rare premature atrial contractions. There was a 5 beat run of ventricular tachycardia. There is also a run of 9 beats that look like an atrial tachycardia may be with aberrancy. Conclusion: Monitor notable for some PVCs, ventricular bigeminy, a 5 beat run of nonsustained ventricular tachycardia and what I think is a 9 beat run of atrial tachycardia with aberrancy. Procedure Note Rodríguez Driscoll MD - 12/03/2021 Holter monitor report Indication abnormal EKG Findings: The underlying rhythm is sinus rhythm with average heart rate of 78 bpm,minimum heart rate 61 bpm, maximal heart rate of 18 bpm. There are rare isolated PVCs and very rare ventricular bigeminy andventricular couplets. There are very rare premature atrial contractions. There was a 5 beat run of ventricular tachycardia. There is also a run of9 beats that look like an atrial tachycardia may be with aberrancy. Conclusion: Monitor notable for some PVCs, ventricular bigeminy, a 5 beat run ofnonsustained ventricular tachycardia and what I think is a 9 beat run ofatrial tachycardia with aberrancy. us Av Bray DO [facility] ORDERABLE S Final Result documented in this encounter Visit Diagnoses Diagnosis Abnormal electrocardiogram- Primary Nonspecific abnormal electrocardiogram (ECG) (EKG) Abnormal electrocardiogram Nonspecific abnormal electrocardiogram (ECG) (EKG) documented in this encounter Additional Health Concerns Infection Onset Date Last Indicated Resolved Time MDR-GN Comment:Infection Loaded by the Load Infection Utility 02/09/2017 02/09/2017 05/19/2023 1:22 AM E DT documented as of this encounter Care Teams Machinist [employer]otive Relationship Specialty Start Date End Date Katja Harvey MD [address] [place] [address] [email or web address] PCP - General Internal Medicine 08/28/17 Bahman Goldberg MD [address] [place] [address] [email or web address] Historical LMR Provider 08/13/17 Katja Harvey MD [address] [place] [address] [email or web address] Historical LMR Provider 08/13/17 Kody Hopson MD [address] [place] [address] [email or web address] Historical LMR Provider 08/13/17 Rashad Merritt MD [email or web address] Historical LMR Provider 08/13/17 documented as of this encounter Additional Source Comments The information contained in this document represents components of the legal health record. It is not the complete legal health record.[facility]
--- OUTSIDE RECORDS SUMMARY | 2025-07-22 16:56 | XMS_ITS | Clinical Summary ---
Author Organization [facility] Address [address] [address] Phone Care Team Providers Care Carton Making Machine Operator Name Role Phone Bahman Goldberg MD Unavailable [phone] Katja Harvey MD Unavailable Kody Hopson MD Unavailable Rashad Merritt MD Unavailable [email or web address] Katja Harvey MD Primary Care Provider Allergies Active Allergy Reactions Criticality Noted Date Comments Omeprazole Hives Low 05/08/2017 Take with an allergy tablet Penicillin Hives Low 05/08/2017 Medications aspirin 81 MG EC tablet Take 1 tablet by mouth daily. Active loratadine (CLARITIN) 10 mg tablet Take 1 tablet by mouth daily. Active cranberry 500 mg Cap Take 1 capsule by mouth daily. Active b complex vitamins (VITAMINS B COMPLEX) tablet Take 1 tablet by mouth daily. Active ascorbic acid, vitamin C, (VITAMIN C) 500 MG tablet Take 1 tablet by mouth 2 (two) times a day. Active cholecalciferol (VITAMIN D3) 2,000 unit capsule Take 2,000 Units by mouth daily. Active omeprazole (PRILOSEC) 20 MG tablet Take 20 mg by mouth daily. Patient takes Omeprazole with an allergy pill Active methenamine (HIPREX) 1 gram tabletIndicatio ns:Recurrent urinary tract infection TAKE 1 TABLET BY MOUTH TWICE DAILY WITH MEALS 180 tablet 3 1 Active predniSONE (DELTASONE) 5 MG tablet Take 5 mg by mouth 2 (two) times a day. 2 Active alendronate (FOSAMAX) 70 MG tablet Take 1 tablet by mouth once a week. 3 Active Bacillus coagulans-inuli n 1 billion-250 cell-mg Cap Take 250 mg by mouth daily. Active amLODIPine (NORVASC) 5 MG tablet Take 5 mg by mouth every morning. 5 Active leflunomide (ARAVA) 20 MG tablet Take 1 tablet by mouth every morning. 5 Active rosuvastatin (CRESTOR) 5 MG tablet Take 1 tablet (5 mg total) by mouth daily. 90 tablet 3 5 Active Active Problems Problem Noted Date Diagnosed Date CAD in [place] artery 07/01/2021 Assessment & Plan (09/30/2022 10:21 AM EST): Asymptomatic. She will remain on aspirin 81 mg daily, furosemide 20 mg daily. She is encouraged to follow her healthy diet including low sodium and to exercise. We will continue to optimize her cardiac risk factors. Therapeutic drug monitoring 12/28/2020 Insomnia secondary to chronic pain 04/30/2020 Overview (07/06/2020): Consider bedtime pain medication and sleep aid MARIELOS on CPAP 03/19/2020 Assessment & Plan (03/19/2020 9:21 PM EDT): Reports being 100% compliant with CPAP. Overweight (BMI 25.0-29.9) 03/19/2020 Assessment & Plan (03/19/2020 9:25 PM EDT): BMI of 29.79. Discussed importance of leading heart healthy lifestyle with regular exercise of 30 minutes daily, Mediterranean diet, restriction of sodium intake, and maintenance of ideal body weight. We speicifically discussed using her upper body for exercise while awaiting her knee replacement surgery. Acute cystitis with positive culture 12/24/2019 Overview (12/30/2019): E coli, resistant only to AMP, ASB Plantar fasciitis of left foot 04/29/2019 Assessment & Plan (06/12/2019 10:31 AM EDT): Better. Continue to use heel cups and do stretches. Reviewed x-ray showing small calcaneal spur. Assessment & Plan (04/29/2019 10:36 AM EDT): 2 weeks of rather severe pain in the bottom of the left heel along with an x-ray showing an inferior calcaneal spur goes along with acute plantar fasciitis. In addition to a heel cup and stretches of the Achilles tendon mechanism I would give her a cortisone injection today and then she will use partial weightbearing and give me a call in follow-up in 10 days. Non-rheumatic mitral regurgitation 01/22/2018 Assessment & Plan (01/22/2018 10:49 AM EDT): She has moderate mitral regurgitation. Echocardiogram done in November shows that this is stable. Essential hypertension 12/06/2017 Assessment & Plan (09/30/2022 10:21 AM EST): She is checking her blood pressures at home and tells me for the most part they are 120-130 systolic. Here in the office it was mildly elevated and was rechecked from 136/70. She is not on any medication for her blood pressure. She is encouraged follow heart healthy diet including low sodium and to exercise. Now that she is on prednisone for her arthritis she is able to move better and she is strongly encouraged to keep active. Assessment & Plan (03/31/2022 1:45 PM EDT): Pressure is quite elevated here in the office today 162/94. This is unusual for her. I did recheck her in both of her arms and still got 160/80. She is on no hypertensive medications at this time. She tells me she watches her sodium however last night she remembers having steak seasoning with her food and this may be contributing to her blood pressures here in the office today. We discussed potentially putting her on blood pressure medication however given that she is here in the office with one blood pressure reading I have asked her to continue checking her blood pressures at home. I have asked her to call this office if her blood pressures remain elevated greater than 140/80 and to call this office so we can consider starting her on a medication such as amlodipine 5 mg daily. She does have a follow-up echocardiogram on Monday with a follow-up with Dr. Zhu in the office after this. For now we will monitor her blood pressure she is encouraged to follow a low-sodium diet. Assessment & Plan (03/31/2021 1:01 PM EDT): Her blood pressures are markedly increased today at 80/38. She is not on any antihypertensives. She does follow a DASH diet and has been exercising but not as much as she should she will increase her exercise. Her recent echocardiogram shows a worsening of her MR which was mild and is now severe as well as increased PA pressures. The velocity across her aortic valve has also increased from 2.24M/sec to 3.24M/sec. She appears to have a dilated cardiomyopathy of unclear etiology. Comes to the office today reporting 2 weeks of worsening bilateral lower extremity edema especially at the end of the day. She reports when she goes to bed at night and wakes in the morning her edema has resolved. Here in the office today her edema is pretty insignificant though her right lower extremity is slightly larger than her left +1 on right, trace on the left. We discussed continuing to follow the Dash diet, trying compression stockings and elevating her legs when she can see if this helps her edema. Additionally does she does complain of cramping to her left calf which is new for her. We can consider doing bilateral lower extremity ultrasounds to rule out venous insufficiency. After consultation with Dr. Mendez about these findings including the echocardiogram, hypertension, lower leg edema he would like to wait until he sees her in April to make a decision on further testing and treatment. I am hesitant to start Lasix due to the lack of lower extremity edema and her cardiac symptoms. Would like to conservatively try to manage her bilateral lower extremity edema until she sees Dr. Mendez. Assessment & Plan (03/19/2020 9:20 PM EDT): Blood pressure goal of less than 130/80. History of whitecoat syndrome. Stable blood pressure readings at home continue with current treatment. We also discussed Dash. Assessment & Plan (07/16/2018 6:53 PM EDT): Good control on sodium restriction and she will follow-up with her primary care physician. Assessment & Plan (01/22/2018 10:49 AM EDT): Blood pressure today is adequately controlled. She has been controlling her blood pressure with diet, exercise, and weight loss. Follow-up visit for aortic v alve replacement with bioprosthetic valve 12/06/2017 Assessment & Plan (01/22/2018 10:48 AM EDT): She had a bioprosthetic aortic valve replacement in August 2013. She is doing well. Her last echocardiogram a few weeks ago showed a normally functioning valve. We will recheck it in a year. Urticaria 09/04/2017 Assessment & Plan (07/16/2018 6:53 PM EDT): This has not recurred recently. Her lab work is all normal. Her BUN was 18 with a creatinine of 0.8 and an AST of 18 with an ALT of 15 and hemoglobin of 12.9 with a white count of 6700 with a normal differential and a hematocrit of 39.4. Primary osteoarthritis of right knee 09/04/2017 Overview (02/22/2020): Seeking R TKA from Dr. West @ [facility] circa 01/28/2020 Assessment & Plan (06/12/2019 10:31 AM EDT): Inject right knee today. To rest with ice quadricep strengthening and well fitting shoes. Reviewed x-rays showing advanced osteoarthritis with osteophytosis subchondral sclerosis and severe medial joint space narrowing bilaterally. Briefly discussed referral for joint replacement but she is not ready yet if this injection helps. Assessment & Plan (01/10/2019 11:28 AM EDT): Patient with painful severe tricompartmental osteoarthritis of the right knee with improvement with physical therapy and cortisone injection. Continue home exercise program with quadricep strengthening well fitting supportive shoes with good shock absorption as well as weight management. Follow-up 6 months. Sooner if she has another flare. Viewed x-ray showing subchondral sclerosis, osteophytosis, and severe medial joint space narrowing. Assessment & Plan (10/18/2018 10:40 AM EST): Reviewed 2017 right knee x-ray indicating moderately advanced osteoarthritis in 3 compartments with subchondral sclerosis and joint space narrowing. Weightbearing x-rays of both knees will be repeated today. After full discussion of risks and benefits she will start Voltaren gel applied to the painful area of the right knee 3 times daily. She may continue to use acetaminophen by mouth not exceeding 1500 mg daily. She will be referred to physical therapy. Follow-up will be in the office in 2 months. Assessment & Plan (07/16/2018 6:52 PM EDT): Much improved. Quadricep strengthening external knee support and well fitting supportive shoes as well as weight control were all discussed today. Assessment & Plan (03/12/2018 3:57 PM EDT): Patient is having a flare of tricompartmental osteoarthritis the right knee today. She will receive pain relieving cortisone injection. She will call me back for a progress report and then she will let me know how she is doing within the next 72 hours. I reviewed with her the x-ray from 2016 showing chondrocalcinosis and medial compartment narrowing with osteophytosis. We discussed possibilities including Visco supplementation orthopedic referral if absolutely necessary but this of course will be preceded by physical therapy. Assessment & Plan (09/04/2017 9:55 AM EST): Quadriceps strengthening and joint protective measures with well fitting supportive shoes as well as weight management were discussed today. Osteopenia 09/04/2017 Assessment & Plan (04/29/2019 10:36 AM EDT): Reviewed previous bone densitometry in discussed her fracture prevention strategies and the need to be compliant with vitamin D3 at 1000 units daily. Assessment & Plan (07/16/2018 6:54 PM EDT): She will continue vitamin D3 1000 units daily. Fall and fracture prevention strategies were discussed. Bone densitometry will be done in 2019. Assessment & Plan (09/04/2017 9:56 AM EST): Mild vertebral osteopenia on bone densitometry done in February 2016. Fall and fracture prevention strategies, compliance with vitamin D3, annual eye examinations and repeat bone densitometry in the summer of 2017 were all discussed. Bilateral carpal tunnel syndrome 09/04/2017 Assessment & Plan (07/16/2018 6:53 PM EDT): Stress natural history of this. Discussed need for nighttime wrist splinting when it becomes more symptomatic. She has excellent spring encaser strength and no evidence of thenar or intrinsic muscle atrophy. Assessment & Plan (09/04/2017 9:55 AM EST): Mild active and stable and she will continue her nighttime wrist splints. Need for prophylaxis against urinary tract infec tion 02/07/2017 Overview (01/29/2018): Methenamine since 02/07/2017 Assessment & Plan (08/26/2021 10:40 AM EDT): The patient continues to do well on methenamine, enhanced with the use of vitamin C, as well as cranberry pills and probiotic. I would recommend she continue this regimen indefinitely, as tolerated. Dr. Goldberg is no longer practicing in [place], and I will be retiring soon. I recommend the Dr. Harvey take over her these prescriptions. The patient has a standing order for urinalysis with reflex culture in the case of symptomatic disease. The standing order is good through December 2021. I do not see the need for a routine urinalysis every 6 months as there will be no action taken unless the patient is symptomatic. History of aortic valve repl acement with bioprosthetic valve 09/30/2016 Assessment & Plan (09/30/2022 10:21 AM EST): Monitor with echocardiogram in 6 months. Assessment & Plan (03/31/2022 1:46 PM EDT): She recently underwent a valve in valve plantation of TAVR on 02/16/2022 at [facility] with Dr. Zhu. She is doing well from her procedure. She denies any cardiac symptoms at this time. She will remain on her medications which include aspirin 81 mg daily, clopidogrel 75 mg daily, Lasix 20 mg daily. She has a follow-up echocardiogram on Monday in the [place] office with follow-up with Dr. Zhu thereafter. We will follow her here in this office in 6 months. Assessment & Plan (03/19/2020 9:19 PM EDT): S/p AVR in 2012. 03/10/2020 showed normally functioning aortic valve replacement bioprosthetic valve. Slight increase in peak velocity across the valve. We will repeat another echo in 12 months to monitor for progression and patency. Incomplete bladder emptying Recurrent urinary tract infection Overview (01/28/2018): on methenamine prophylaxis since 02/07/2017 Aortic stenosis Overview (01/03/2021): Bioprosthetic AVR 08/2013 Resolved Problems Problem Noted Date Diagnosed Date Resolved Date Acute cystitis 07/08/2018 12/28/2020 Encounters Date Type Department Care Team Description 07/15/2025 1:48 PM EDT - 07/15/2025 11:59 PM EDT Hospital Encounter [facility] [address] [place] [address] Justo Mendez MD Discharge Disposition: Home or Self Care 07/11/2025 11:04 AM EDT - 07/11/2025 11:59 PM EDT Hospital Encounter [facility] [address] [place] [address] Negin El MD Discharge Disposition: Home or Self Care 07/11/[address] [facility] [address] [place] [address] Negin El MD Vitamin D deficiency, unspecified (Primary Dx); Polymyalgia rheumatica 07/11/2025 Transcribe Orders Virtual Department [address] [place] [address] Katja Harvey MD Dizziness (Primary Dx) 07/10/2025 Transcribe Orders [facility] [address], [address] [place] [address] Katja Harvey MD Dizziness and giddiness (Primary Dx) 06/27/2025 12:09 PM EDT - 06/27/2025 11:59 PM EDT Hospital Encounter [address] [address] Katja Harvey MD Discharge Disposition: Home or Self Care 06/27/2025 Ancillary Orders [address] [address] Katja Harvey MD Neck pain (Primary Dx) 05/20/2025 11:20 AM EDT - 05/20/2025 11:59 PM EDT Hospital Encounter [facility] [address] [place] [address] Katja Harvey MD Discharge Disposition: Home or Self Care 05/19/2025 10:47 AM EDT - 05/19/2025 11:59 PM EDT Hospital Encounter [facility] [address] [place] [address] Katja Harvey MD Discharge Disposition: Home or Self Care 05/19/[address] [facility] [address] [place] [phone] Katja Harvey MD Urinary tract infection without hematuria, site unspecified (Primary Dx) 05/19/[address] [facility] [address] [place] [phone] Katja Harvey MD Urinary tract infection without hematuria, site unspecified (Primary Dx) 05/08/2025 9:40 AM EDT Office Visit [facility] [address], [address] [place] [address] Justo Mendez MD Localized edema (Primary Dx); Presence of prosthetic heart valve 05/05/2025 7:59 AM EDT - 05/05/2025 11:59 PM EDT Hospital Encounter [facility] [address] [place] [address] Justo Mendez MD Discharge Disposition: Home or Self Care 05/05/[address] [facility] [address] [place] [address] Seymour Ingram Hyperlipidemia, unspecified hyperlipidemia type 05/02/2025 1:38 PM EDT - 05/02/2025 11:59 PM EDT Hospital Encounter [facility] [address] [place] [address] Jacklyn Galicia PA Discharge Disposition: Home or Self Care 05/02/2025 12:17 PM EDT - 05/02/2025 1:37 PM EDT Hospital Encounter [facility] [address] [place] [address] Jacklyn Galicia PA Discharge Disposition: Home or Self Care 05/02/2025 Transcribe Orders Virtual Department [address] [place] [address] Jacklyn Galicia PA Edema, unspecified type (Primary Dx) from Last 3 Months Immunizations Immunization Administration Dates Next Due COVID-19 (Pre-08/14) Pfizer Vaccine, mRNA, PF 12/17/2020,11/26/2020 Influenza High-Dose Quadriva lent Preservative Free IM 07/22/2021 Influenza High-Dose Trivalen t Preservative Free IM 08/02/2019,08/07/2018,08/26/2016,2014 Pneumococcal conjugate PCV13 08/19/2015 Zoster recombinant 01/14/2019,11/12/2018 Family History Medical History Relation Comments Lupus Daughter Pacemaker Daughter following ablati ons for tachycardia Tachycardia Daughter s/p EP ablation x 2 Heart attack Father Premature CHD Father Hypertension Mother Stroke Mother CABG Sister x 3 vessels age 62 Coronary artery disease Sister multiple atents Hypertension Sister Diabetes type II Son 1 non-obese No Known Problems Son 2 Relation Status Comments Daughter Alive Father (Age 55) Mother (Age 82) Sister Alive Son 1 Alive Son 2 Alive Social History Tobacco Use Types Packs/Day Years Used Date Smoking Tobacco: Former Cigarettes 2 0.5 0 05/13/1990 - 11/12/1990 Smokeless Tobacco: Never Tobacco Cessation:Counseling Given: Not Answered Alcohol Use Standard Drinks/Week Comments Yes 0 [...] file Not on file Not on file Last Filed Vital Signs Vital Sign Reading Time Taken Comments Blood Pressure 160/60 05/08/2025 9:36 AM EDT Pulse 80 05/08/2025 9:36 AM EDT Temperature 36.4 C (97.5 F) 01/31/2024 11:47 AM EDT Respiratory Rate 16 01/31/2024 11:56 AM EDT Oxygen Saturation 98% 02/26/2025 11:25 AM EDT Inhaled Oxygen Concentration - - Weight 87.1 kg (192 lb) 05/08/2025 9:36 AM EDT Height 172.7 cm (5' 7.99 ) 05/08/2025 9:36 AM ED T Body Mass Index 29.2 05/08/2025 9:36 AM EDT Plan of Treatment Upcoming Encounters Date Type Department Care Team (Late st Contact Info) Description 05/08/2025 Procedure Pass [facility] [address] [address] 07/11/2025 Procedure Pass [address] [address] 08/01/2025 1:45 PM EDT Appointment [address] [address] Katja Harvey MD [address] [place] [phone] 08/07/2025 10:30 AM EDT Office Visit [facility] [address] [place] [address], [address] [address] Heidy Julio PA-C [address] [place] [phone] 10/08/2025 1:30 PM EST Appointment [facility] [place] [address] [place] [address] Justo Mendez MD [address] [place] [address] 11/12/2025 10:00 AM EST Office Visit [facility] [address] [place] [address], [address] [address] Justo Mendez MD [address] [place] [address] 01/23/2026 12:00 PM EDT Office Visit [facility] [address] [place] [address], [address] [address] Juanpablo Palma MD, MS [address] [place] [address] Health Maintenance Due Date Last Done Comments Adult Td,Tdap Booster 1942 DEPRESSION SCREENING 1954 OSTEOPOROSIS SCREENING INITIAL (ONE-TIME) 2007 PNEUMOCOCCAL VACCINES (50+ years) (2 of 2 - PPSV23) 10/14/2015 08/19/2015 INFLUENZA VACCINE (#1) 2025 , 07/23/2022, 07/22/2021, Additional history exists COVID-19 VACCINE ( season) 2025 07/22/2023, 07/23/2022, 08/21/2021, Additional history exists BLOOD PRESSURE 11/08/2025 05/08/2025 LIPID PANEL 05/05/2026 05/05/2025, 03/23, 10/21/2024, Additional history exists ZOSTER VACCINES Completed 01/14/2019, 11/12/2018 RSV VACCINE Completed 09/16/2023 HEPATITIS A VACCINES Aged Out No long er eligible based on patient's age to complete this topic HIB VACCINES Aged Out No longer eligi ble based on patient's age to complete this topic MENINGOCOCCAL VACCINES (ACWY) Aged Out No longer eligible based on patient's age to complete this topic MENINGOCOCCAL VACCINES (B) Aged Out N o longer eligible based on patient's age to complete this topic Medical Devices Implanted Type Area Engine Assembler Device Identifier Shelf Expiration Date Model / Serial / Lot Prosthetic Joint-04/30/2020 Implanted:06/2020 (Quantity not on file) Prosthetic Joint Right: Knee Prosthetic Valve-07/01/2013 Implanted:06/2013 (Quantity not on file) Prosthetic Valve Description:Bovine, aortic v alve Procedures Procedure Name Priority Date/Time Associated Diagnosis Comments US LOWER EXTREMITY VEINS REFLUX EVALUATION DUPLEX COMPLETE (BILATERAL) Routine 07/15/2025 2:46 PM EDT Localized edema SEDIMENTATION RATE (ESR) Routine 07/11/2025 11:06 AM EDT Vitamin D deficiency, unspecified Polymyalgia rheumatica CBC AND DIFFERENTIAL Routine 07/11/2025 11:06 AM EDT Vitamin D deficiency, unspecified Polymyalgia rheumatica COMPREHENSIVE METABOLIC PANEL Routine 07/11/2025 11:06 AM EDT Vitamin D deficiency, unspecified Polymyalgia rheumatica 25-OH VITAMIN D Routine 07/11/2025 11:06 AM EDT Vitamin D deficiency, unspecified Polymyalgia rheumatica C-REACTIVE PROTEIN Routine 07/11/2025 11 :06 AM EDT Vitamin D deficiency, unspecified Polymyalgia rheumatica XR CERVICAL SPINE 2-3 VIEWS Routine 06/27/2025 12:20 PM EDT Neck pain URINALYSIS W/REFLEX URINE CULTURE Routine 05/20/2025 8:00 AM EDT Urinary tract infection without hematuria, site unspecified LIPID PANEL Routine 05/05/2025 7:59 AM EDT Hyperlipidemia, unspecified hyperlipidemia type US LOWER EXTREMITY VEINS DUPLEX (RIGHT) Routine 05/02/2025 2:53 PM EDT Edema, unspecified type BASIC METABOLIC PANEL Routine 05/02/2025 1:52 PM EDT Edema, unspecified type CBC Routine 05/02/2025 1:52 PM EDT Edema, unspecified type TSH WITH REFLEX Routine 05/02/2025 1:52 PM EDT Edema, unspecified type from Last 3 Months Results * US Lower Extremity Veins Reflux Evaluation Duplex Complete (Bilateral) (07/15/2025 2:46 PM EDT) Height 173 cm Weight 87 kg RIGHT GREAT SAPH VEIN SAPHENO-FEM JUNCT VALVE CLOSURE TIME 1.0 sec GSV Sapheno-Femoral Junction Kristel AntPost 1.0 cm Mid Great Saphenous Vein Thigh Diameter Anterior-Landscape Architecture Professor ior 0.4 cm Dist Great Saphenous Vein Thigh Diameter Anterior-Landscape Architecture Professor ior 0.4 cm Knee Great Saphenous Vein Diameter Anterior-Landscape Architecture Professor ior 0.4 cm Prox Great Saphenous Vein Calf Diameter Anterior-Landscape Architecture Professor ior 0.5 cm Popliteal Fossa GSV Valve Closure time 0.4 sec Popliteal Fossa GSV Anterior-Landscape Architecture Professor ior 0.3 cm GSV Sapheno-Femoral Diameter Anterior-Landscape Architecture Professor ior 1.4 cm Prox Great Saphenous Vein Thigh Diameter Anterior-Landscape Architecture Professor ior 0.4 cm Mid Great Saphenous Vein Thigh Diameter Anterior-Landscape Architecture Professor ior 0.4 cm Dist Great Saphenous Vein Thigh Diameter Anterior-Landscape Architecture Professor ior 0.4 cm Knee Great Saphenous Vein Diameter Anterior-Landscape Architecture Professor ior 0.4 cm Prox Great Saphenous Vein Calf Diameter Anterior-Landscape Architecture Professor ior 0.4 cm Left Great Saphenous Vein Popliteal Fossa Anterior-Landscape Architecture Professor ior 0.3 cm Mid Small Saphenous Vein Calf Valve Closure Time 0.6 sec Mid Small Saphenous Vein Calf Diameter Anterior-Landscape Architecture Professor ior 0.5 cm Anatomical Region Laterality Modality Ultrasound Narrative 07/16/2025 8:33 AM EDT Right Great Saphenous Vein reflux is detailed above. Max reflux time is 1 seconds at the saphenofemoral junciton location. Small Saphenous Vein no reflux >0.5 seconds. There is no evidence of DVT. There is no evidence of Deep Vein reflux >1 second. Left Great Saphenous Vein reflux is detailed above. Max reflux time is 0.5 seconds at the knee location. Small Saphenous Vein reflux lasting 0.6 seconds. There is no evidence of DVT. There is no evidence of Deep Vein reflux. Conclusion: Mild venous insufficiency in the right GSV with reflux time up to 1 second at the saphenofemoral junction. Left side is only borderline abnormal reflux time up to 0.5 seconds. Harvey's cyst is noted on the left as well. Lower Venous Left COMMON FEMORAL VEIN normal compressibility and flow characteristics FEMORAL VEIN normal compressibility and flow characteristics POPLITEAL VEIN normal compressibility and flow characteristics GREAT SAPHENOUS VEIN REFLUX FINDINGS Sapheno-Femoral Junction: no reflux Proximal thigh: no reflux Mid thigh: no reflux Distal thigh: no reflux Proximal calf: no reflux SMALL SAPHENOUS VEIN REFLUX FINDINGS Mid calf: reflux present Lower Venous Right COMMON FEMORAL VEIN normal compressibility and flow characteristics FEMORAL VEIN normal compressibility and flow characteristics; Reflux lasting 0.7 seconds. POPLITEAL VEIN normal compressibility and flow characteristics; Reflux lasting 0.5 seconds. GREAT SAPHENOUS VEIN REFLUX FINDINGS Sapheno-Femoral Junction: reflux present Proximal thigh: no reflux Mid thigh: no reflux Distal thigh: no reflux Knee: no reflux Proximal calf: no reflux Mid calf: no reflux SMALL SAPHENOUS VEIN REFLUX FINDINGS Popliteal Fossa: reflux present Introductory Comments Techniques used for this study included: color flow Doppler and spectral waveform Doppler. Justo Mendez MD US VASCULAR Final Result * (ABNORMAL) Comprehensive metabolic panel (07/11/2025 11:06 AM EDT) SODIUM 140 133 - 146 mmol/L [facility] POTASSIUM 4.1 3.3 - 5.1 mmol/L [facility] CHLORIDE 105 96 - 108 mmol/L [facility] CO2 25 21 - 35 mmol/L [facility] BUN 17 6 - 19 mg/dL [facility] CREATININE 0.40(L) 0.5 - 1.5 mg/dL [facility] GLUCOSE 104(H) 70 - 99 mg/dL [facility] ALBUMIN 4.1 3.9 - 4.8 g/dL [facility] TOTAL PROTEIN 7.1 6.5 - 8.0 g/dL [facility] CALCIUM 9.5 8.4 - 10.3 mg/dL [facility] ALKALINE PHOSPHATASE 60 39 - 117 U/L [facility] TOTAL BILIRUBIN 0.6 0.0 - 1.2 mg/dL [facility] AST 21 0 - 37 U/L [facility] ALT 11 0 - 40 U/L [facility] GLOBULIN 3.0 1 - 4.8 g/dL [facility] EGFR 98 >59 mL/min/1.7 3m2 [facility] Comment:Estimated glomerular filtration rate calculated using the CKD-EPI refit equation. ANION GAP 14 10 - 20 mmol/L [facility] Blood 07/11/2025 11:0 6 AM EDT 07/11/2025 11:07 AM EDT Negin El MD LAB BLOOD ORDER ARA Final Result [facility] [address] [place] [address] * 25-OH vitamin D (07/11/2025 11:06 AM EDT) 25 OH VIT D (TOTAL) 40 30 - 60 ng/mL [facility] Blood 07/11/2025 11:0 6 AM EDT 07/11/2025 11:07 AM EDT Negin El MD LAB BLOOD ORDER ARA Final Result [address] [address] * (ABNORMAL) Sedimentation rate (ESR) (07/11/2025 11:06 AM EDT) Pathologist [facility] ESR 36(H) 0 - 30 mm/h [facility] Blood 07/11/2025 11:0 6 AM EDT 07/11/2025 11:07 AM EDT Negin El MD LAB BLOOD ORDER ARA Final Result Performing Organization Address City/[facility]/ZIP Co de Phone Number [address] [address] * (ABNORMAL) CBC and differential (07/11/2025 11:06 AM EDT) Pathologist [facility] WBC 6.44 4.00 - 11.00 K/uL [facility] RBC 3.90(L) 4.00 - 5.20 M/uL [facility] HGB 12.1 12.0 - 16.0 g/dL [facility] HCT 37.8 36.0 - 46.0 % [facility] PLT 156 150 - 450 K/uL [facility] MCV 96.9 80.0 - 100.0 fL [facility] MCH 31.0 27.0 - 31.0 pg [facility] MCHC 32.0 32.0 - 36.0 g/dL [facility] RDW 14.0 11.5 - 14.5 % [facility] MPV 13.0(H) 8.4 - 12.0 fL [facility] NRBC 0.00 0.00 /100 WBCs [facility] ABSOLUTE NRBC 0.00 0.00 K/uL [facility] DIFF METHOD Auto [facility] NEUTS 61.8 48.0 - 76.0 % [facility] LYMPHS 20.3 18.0 - 41.0 % [facility] MONOS 13.2(H) 4.0 - 11.0 % [facility] EOS 3.6 0.0 - 5.0 % [facility] BASOS 0.8 0.0 - 1.5 % [facility] Granulocytes, immature (%) 0.3 0.0 - 0.9 % [facility] ABSOLUTE NEUTS 3.98 1.92 - 7.60 K/uL [facility] ABSOLUTE LYMPHS 1.31 0.72 - 4.10 K/uL [facility] ABSOLUTE MONOS 0.85 0.16 - 1.10 K/uL [facility] ABSOLUTE EOS 0.23 0.00 - 0.50 K/uL [facility] ABSOLUTE BASOS 0.05 0.00 - 0.15 K/uL [facility] Granulocytes, immature 0.02 0.00 - 0.09 K/uL [facility] Blood 07/11/2025 11:0 6 AM EDT 07/11/2025 11:07 AM EDT Negin El MD LAB BLOOD ORDER ARA Final Result Performing Organization Address City/State/[facility] Co de Phone Number [facility] [address] [place] [address] * C-Reactive Protein (07/11/2025 11:06 AM EDT) C REACTIVE PROTEIN 3.2 0.0 - 4.0 mg/L [facility] Blood 07/11/2025 11:0 6 AM EDT 07/11/2025 11:07 AM EDT Negin El MD LAB BLOOD ORDER ARA Final Result [facility] [address] [place] [address] * XR CERVICAL SPINE 2-3 VIEWS (06/27/2025 [...] MD IMG XR SPINE Final Resul t * Urinalysis w/reflex Urine Culture (05/20/2025 8:00 AM EDT) COLOR Yellow Yellow [facility] CLARITY Clear [facility] GLUCOSE Negative Negative [facility] BILI Negative Negative [facility] KETONES Negative Negative [facility] SPECIFIC GRAVITY 1.020 1.005 - 1.030 [facility] BLOOD Negative Negative [facility] PH 6.0 5.0 - 8.0 [facility] Protein-UA Negative Negative [facility] NITRITE Negative Negative [facility] Leukocyte esterase, ur Negative Negative [facility] Urine (Urine) 05/20/2025 8:0 0 AM EDT 05/20/2025 11:23 AM EDT us Katja Harvey MD URINE ORDERABLES Final Resu lt Performing Organization Address City/State/[facility] Co de Phone Number [address] [address] * (ABNORMAL) Lipid panel (05/05/2025 7:59 AM EDT) HDL 62 mg/dL [facility] Comment: Interpretation <40 mg/dL: Low HDL cholesterol (major risk factor for CHD) Greater than or equal to 60 mg/dL: High HDL cholesterol ( negative risk factor for CHD) HDL - cholesterol is affected by a number of factors, e.g. smoking, excerise, hormones, sex and age. CHOLESTEROL 144 0 - 240 mg/dL [facility] TRIGLYCERIDES 132 30 - 160 mg/dL [facility] LDL 56 50 - 129 mg/dL [facility] Comment: LDL levels in terms of risk for coronary heart disease: <100 mg/dL: Optimal 100-129 mg/dL: Near or above optimal 130-159 mg/dL: Borderline high 160-189 mg/dL: High >190 mg/dL: Very High CARDIAC RISK RATIO 2.3(L) 3.3 - 4.4 [facility] Blood 05/05/2025 7:59 AM EDT 05/05/2025 8:00 AM EDT us Justo Mendez MD LAB BLOOD ORDERABLES Final Re sult [facility] [address], [place] [id number] * US Lower Extremity Veins Duplex (Right) (05/02/2025 2:53 PM EDT) Anatomical Region Laterality Modality Hip Right, Thigh Right, Knee Right, Leg Right, Ankle Right, Foot Right Ultrasound 05/02/2025 2:57 PM EDT Impressions 05/02/2025 2:58 PM EDT * No evidence of deep or superficial venous thrombosis in the visualized veins of the right lower extremity. Narrative 05/02/2025 2:58 PM EDT US LOWER EXTREMITY VEINS DUPLEX (RIGHT) Referring clinician's provided indication for this examination [facility]: Edema TECHNIQUE: Lower extremity venous ultrasound with color and spectral Doppler. COMPARISON: None FINDINGS: Exam Quality: Technically adequate exam demonstrates: Right lower extremity Common femoral vein: Normal compressibility and flow characteristics. Femoral vein: Normal compressibility and flow characteristics. Proximal profunda femoral vein: Normal compressibility. Popliteal vein: Normal compressibility and flow characteristics. Posterior tibial veins: Normal compressibility. Peroneal veins: Normal compressibility. Gastrocnemius: Normal compressibility. Great saphenous vein: Normal compressibility at the saphenofemoral junction. Contralateral common femoral vein: Normal compressibility. Procedure Note Amrik Hong MD - 05/02/2025 US LOWER EXTREMITY VEINS DUPLEX (RIGHT) Referring clinician's provided indication for this examination in [facility]:Edema TECHNIQUE: Lower extremity venous ultrasound with color and spectralDoppler. COMPARISON: None FINDINGS: Exam Quality: Technically adequate exam demonstrates: Right lower extremity Common femoral vein: Normal compressibility and flow characteristics. Femoral vein: Normal compressibility and flow characteristics. Proximal profunda femoral vein: Normal compressibility. Popliteal vein: Normal compressibility and flow characteristics. Posterior tibial veins: Normal compressibility. Peroneal veins: Normal compressibility. Gastrocnemius: Normal compressibility. Great saphenous vein: Normal compressibility at the saphenofemoraljunction. Contralateral common femoral vein: Normal compressibility. IMPRESSION: * No evidence of deep or superficial venous thrombosis in the visualizedveins of the right lower extremity. Jacklyn CASTRO CV US VASCULAR Final Result * TSH with reflex (05/02/2025 1:52 PM EDT) TSH 1.41 0.27 - 4.20 uIU/mL [facility] Blood 05/02/2025 1:52 PM EDT 05/02/2025 1:56 PM EDT Jacklyn CASTRO LAB BLOOD ORDERABLES Final Resu lt [address] [address] * (ABNORMAL) CBC (05/02/2025 1:52 PM EDT) WBC 6.61 4.00 - 11.00 K/uL [facility] RBC 4.19 4.00 - 5.20 M/uL [facility] HGB 12.9 12.0 - 16.0 g/dL [facility] HCT 40.9 36.0 - 46.0 % [facility] PLT 165 150 - 450 K/uL [facility] MCV 97.6 80.0 - 100.0 fL [facility] MCH 30.8 27.0 - 31.0 pg [facility] MCHC 31.5(L) 32.0 - 36.0 g/dL [facility] RDW 14.4 11.5 - 14.5 % [facility] MPV 12.6(H) 8.4 - 12.0 fL [facility] NRBC 0.00 0.00 /100 WBCs [facility] ABSOLUTE NRBC 0.00 0.00 K/uL [facility] Blood 05/02/2025 1:52 PM EDT 05/02/2025 1:56 PM EDT Jacklyn CASTRO LAB BLOOD ORDERABLES Final Resu lt Performing Organization Address City/[facility]/ZIP Co de Phone Number [address] [address] * (ABNORMAL) Basic metabolic panel (05/02/2025 1:52 PM EDT) SODIUM 141 133 - 146 mmol/L [facility] CHLORIDE 103 96 - 108 mmol/L [facility] POTASSIUM 4.7 3.3 - 5.1 mmol/L [facility] CO2 25 21 - 35 mmol/L [facility] BUN 15 6 - 19 mg/dL [facility] CREATININE 0.50 0.5 - 1.5 mg/dL [facility] GLUCOSE 101(H) 70 - 99 mg/dL [facility] CALCIUM 9.8 8.4 - 10.3 mg/dL [facility] EGFR 94 >59 mL/min/1.7 3m2 [facility] Comment:Estimated glomerular filtration rate calculated using the CKD-EPI refit equation. ANION GAP 18 10 - 20 mmol/L [facility] Blood 05/02/2025 1:52 PM EDT 05/02/2025 1:56 PM EDT Jacklyn CASTRO LAB BLOOD ORDERABLES Final Resu lt Performing Organization Address [facility]/ZIP Co de Phone Number [address] [address] from Last 3 Months Insurance MEDICARE PART A & B [employer] MED[employer] SUPPLEMENT MEDICARE PART A & B [employer] MEDEX SUPPLEMENT MEDICARE PART A & B [employer] MEDEX SUPPLEMENT MEDICARE PART A & B [employer] MEDEX SUPPLEMENT MEDICARE PART A & B [employer] MEDEX SUPPLEMENT MEDICARE PART A & B BLUE [employer] MEDEX SUPPLEMENT MEDICARE PART A & B [employer] MEDEX SUPPLEMENT MEDICARE PART A & B [employer] MEDEX SUPPLEMENT MEDICARE PART A & B [employer] MEDEX SUPPLEMENT Advance Directives For more information, please contact: [phone] (9AM - 5PM [place], Monday-Monday) Documents on File Type Date Recorded Patient Management Consultant Expl [email or web address] Proxy 07/16/2021 2:08 PM * Full Code (Latest Code Status on File) Date Activated Date Inactivated Comments 07/01/2021 12:30 PM Question Answer Comments Code Status Confirmed With: Patient Care Teams Carton Making Machine Operator Relationship Specialty Start Date End Date Katja Harvey MD [address] [place] [address] [email or web address] PCP - General Internal Medicine 08/28/17 Bahman Goldberg MD [address] [place] [address] [email or web address] Historical LMR Provider 08/13/17 Katja Harvey MD [address] [place] [address] [email or web address] Historical LMR Provider 08/13/17 Kody Hopson MD [address] [place] [address] [email or web address] Historical LMR Provider 08/13/17 Rashad Merritt MD [email or web address] Historical LMR Provider 08/13/17 Additional Source Comments The information contained in this document represents components of the legal health record. It is not the complete legal health record.[facility]
--- OUTSIDE RECORDS SUMMARY | 2025-07-22 16:56 | XMS_ITS | Encounter Summary ---
Author Organization [facility] Address [address] [facility] [address] [place] [address] Phone Care Team Providers Care Sales Specialist Name Role Phone Bahman Goldberg MD Unavailable [phone] Katja Harvey MD Unavailable Kody Hopson MD Unavailable Rashad Merritt MD Unavailable [email or web address] Kody Locke DO Unavailable Nathan Arellano MD Unavailable [phone] Jung Mitchell MD Unavailable Mer Varela MD Unavailable Jazz Galvez MD Unavailable [phone] Katja Harvey MD Primary Care Provider Encounter Details Date Type Department Care Team (Late st Contact Info) Description 10/10/2019 Ancillary Orders Virtual Department [address] [place] [address] Katja Harvey MD [address] [place] [address] [id number] Social History Tobacco Use Types Packs/Day Years [...] Info) Description 05/08/2025 Procedure Pass [facility] [address] [place] [address] 07/11/2025 Procedure Pass [address] [address] 08/01/2025 1:45 PM EDT Appointment [address] [address] Katja Harvey MD [address] [place] [address] 08/07/2025 10:30 AM EDT Office Visit [facility] [address] [place] [address], [address] [address] Heidy Julio PA-C [address] [place] [address] 10/08/2025 1:30 PM EST Appointment [facility] [address] [place] [address] Justo Mendez MD [address] [place] [address], [address] [address] 11/12/2025 10:00 AM EST Office Visit [facility] [address] 3rd [facility], [address] [address] Justo Mendez MD [address] [place] [address], [address] [address] 01/23/2026 12:00 PM EDT Office Visit [facility] [address] [facility] 3rd Floor, [address] [place] [address] Juanpablo Palma MD, MS [address] [facility], [address] [place] [address] [email or web address] documented as of this encounter Visit Diagnoses Not on filedocumented in this encounter Additional Health Concerns Infection Onset Date Last Indicated Resolved Time MDR-GN Comment:Infection Loaded by the Load Infection Utility 02/09/2017 02/09/2017 05/19/2023 1:22 AM E DT documented as of this encounter Care Teams Sales Specialist Relationship Specialty Start Date End Date Katja Harvey MD [address] [place] [address] [email or web address] PCP - General Internal Medicine 08/28/17 Bahman Goldberg MD [address] [place] [address] [email or web address] Historical LMR Provider 08/13/17 Katja Harvey MD [address] [place] [address] [email or web address] Historical LMR Provider 08/13/17 Kody Hopson MD [address] [place] [address] [email or web address] Historical LMR Provider 08/13/17 Rashad Merritt MD [email or web address] Historical LMR Provider 08/13/17 Kody Locke DO [address] [place] [address] [email or web address] Historical LMR Provider 08/13/17 10/30/21 Nathan Arellano MD [address] [place] [address], [address] [address] [email or web address] Historical LMR Provider 08/13/17 10/30/21 Jung Mitchell MD [address] [place] [address], [address] [address] [email or web address] Historical LMR Provider 08/13/17 10/30/21 [place] [address] [email or web address] Historical LMR Provider 08/13/17 10/30/21 Jazz Galvez MD [address] [place] [phone] Historical LMR Provider 08/13/17 2 documented as of this encounter Additional Source Comments The information contained in this document represents components of the legal health record. It is not the complete legal health record.[facility]
--- OUTSIDE RECORDS SUMMARY | 2025-07-22 16:56 | XMS_ITS | Encounter Summary ---
Author Organization [facility] Address [address] [facility] [address] [place] [address] Phone Care Team Providers Care Regulatory Consultant Name Role Phone Bahman Goldberg MD Unavailable [phone] Katja Harvey MD Unavailable Kody Hopson MD Unavailable Rashad Merritt MD Unavailable [email or web address] Kody Locke DO Unavailable Nathan Arellano MD Unavailable [phone] Jung Mitchell MD Unavailable Mer Varela MD Unavailable Jazz Galvez MD Unavailable [phone] Katja Harvey MD Primary Care Provider Encounter Details Date Type Department Care Team (Late st Contact Info) Description 05/15/2018 Procedure Pass [facility], Ct Scan - [address] [address] Social History Tobacco Use Types Packs/Day Years [...] Info) Description 05/08/2025 Procedure Pass [facility] [address] [place] [address] 07/11/2025 Procedure Pass [address] [address] 08/01/2025 1:45 PM EDT Appointment [address] [address] Katja Harvey MD [address] [place] [address] 08/07/2025 10:30 AM EDT Office Visit [facility] [address] [place] [address], [address] [address] Heidy Julio PA-C [address] [place] [address] 10/08/2025 1:30 PM EST Appointment [facility] [address] [place] [address] Justo Mendez MD [address] [place] [address] 11/12/2025 10:00 AM EST Office Visit [address] [facility], [address] [address] Justo Mendez MD [address] [place] [address] 01/23/2026 12:00 PM EDT Office Visit [address], [address] [place] [address] Juanpablo Palma MD, MS [address] [facility], [address] [place] [address] [email or web address] documented as of this encounter Visit Diagnoses Not on filedocumented in this encounter Additional Health Concerns Infection Onset Date Last Indicated Resolved Time MDR-GN Comment:Infection Loaded by the Load Infection Utility 02/09/2017 02/09/2017 05/19/2023 1:22 AM E DT documented as of this encounter Care Teams Regulatory Consultant Relationship Specialty Start Date End Date Katja Harvey MD [address] [place] [address] [email or web address] PCP - General Internal Medicine 08/28/17 Bahman Goldberg MD [address] [place] [address] [email or web address] Historical LMR Provider 08/13/17 Katja Harvey MD [address] [place] [address] [email or web address] Historical LMR Provider 08/13/17 Kody Hopson MD [address] [place] [address] [email or web address] Historical LMR Provider 08/13/17 Rashad Merritt MD [email or web address] Historical LMR Provider 08/13/17 Kody Locke DO [address] [place] [address] [place] [address] Historical LMR Provider 08/13/17 10/30/21 Nathan Arellano MD [address] [place] [address], [address] [place] [address] Historical LMR Provider 08/13/17 10/30/21 Jung Mitchell MD [address] [place] [address], [address] [place] [address] [email or web address] Historical LMR Provider 08/13/17 10/30/21 [place] [address] [email or web address] Historical LMR Provider 08/13/17 10/30/21 Jazz Galvez MD [address] [place] [phone] Historical LMR Provider 08/13/17 2 documented as of this encounter Additional Source Comments The information contained in this document represents components of the legal health record. It is not the complete legal health record.[facility]
== END 2025-07-23 14:12 | disposition home or self-care (01) ==
LOC: HO.RHES 15:40
PROVIDERS: PCP Internal Medicine; Visit Provider Student in an Organized Health Care Education/Training Program
DX: M35.3 Polymyalgia rheumatica (principal); M85.80 Other specified disorders of bone density and structure, unspecified site; Z51.81 Encounter for therapeutic drug level monitoring; Z79.69 Long term (current) use of other immunomodulators and immunosuppressants; Z79.52 Long term (current) use of systemic steroids; M81.0 Age-related osteoporosis without current pathological fracture; Z79.899 Other long term (current) drug therapy
CPT/HCPCS: 99214; G2211

== ENCOUNTER → 2025-07-22 15:39 | Outpatient (BNVA) | payer MEDICARE, SELFPAY | PROVIDERS: PCP Internal Medicine; Visit Provider Student in an Organized Health Care Education/Training Program | DX: M35.3 Polymyalgia rheumatica (principal); M85.80 Other specified disorders of bone density and structure, unspecified site; Z51.81 Encounter for therapeutic drug level monitoring; Z79.69 Long term (current) use of other immunomodulators and immunosuppressants; Z79.52 Long term (current) use of systemic steroids; M81.0 Age-related osteoporosis without current pathological fracture; Z79.899 Other long term (current) drug therapy | CPT/HCPCS: 99212 ==